=== PATIENT | male | born 1960 | race Caucasian/White ===

== ENCOUNTER → 2018-02-11 06:40 | Outpatient (CLI) | payer BC, SELFPAY ==
[2018-02-11 08:25] LABS: PSA,Total - Annual Screen 6.06 ng/mL (0.00-4.00)
== END ==
PROVIDERS: Family Provider Nurse Practitioner Family; PCP Nurse Practitioner Family; Visit Provider Nurse Practitioner Adult Health
DX: Z12.5 Encounter for screening for malignant neoplasm of prostate (principal)
CPT/HCPCS: 36415; 84153; G0103

== ENCOUNTER → 2018-05-27 07:10 | Outpatient (CLI) | payer BC, SELFPAY ==
--- NOTE | 2018-05-27 07:18 | EKG12_ITS ---
Test Reason : PRE-OP Blood Pressure : / mmHG Vent. Rate : 053 BPM Atrial Rate : 053 BPM P-R Int : 150 ms QRS Dur : 082 ms QT Int : 416 ms P-R-T Axes : 036 040 035 degrees QTc Int : 390 ms Sinus bradycardia Otherwise normal ECG Confirmed by JENNIFER HOOKER, MAINE ([id number]), editorial writer SHANA ELAINE ([id number]) on 05/28/2018 9:34:13 AM Referred By: Roger Evans Confirmed By:MAINE RODRIGUEZ MD
[2018-05-27 07:32] LABS: Absolute Lymphocyte Count 1.45 X10^3/ul (0.83-4.51); Absolute Neutrophil Count 3.7 X10^3/uL (2.0-7.7); Basophil# 0.03 X10^3/uL; Basophil% 0.5 % (0-1); Eosinophil# 0.13 X10^3/uL; Eosinophils% 2.1 % (0-5); Hematocrit 45.8 % (40-54); Hemoglobin 15.9 g/dl (13.0-16.5); Lymphocyte # 1.45 X10^3/ul (4.0); Lymphocyte % 23.8 % (19-41); Mean Corp Hgb Conc 34.7 g/gl (32-36); Mean Corpuscular Hgb 32.1 pg (27.0-32.0); Mean Corpuscular Volume 92.5 fL (80-94); Mean Platelet Vol. 8.8 fl (6.2-12.0); Monocyte# 0.81 X10^3/uL; Monocyte% 13.3 % (0-10); Neutrophil # 3.66 X10^3/uL (2.7-7.7); Platelet Count 253 K/mm3 (150-450); RBC Distribution Width CV 12.5 % (11.6-14.6); RBC Distribution Width SD 41.9 fl (35.1-43.9); Red Blood Count 4.95 M/mm3 (4.6-6.2); White Blood Count 6.1 K/mm3 (4.4-11.0)
[2018-05-27 07:34] LABS: POSITIVE COUNT NO; POSITIVE DIFFERENTIAL NO; POSITIVE MORPHOLOGY NO
== END ==
PROVIDERS: Family Provider Nurse Practitioner Family; PCP Nurse Practitioner Family; Visit Provider Physician Assistant
DX: Z01.818 Encounter for other preprocedural examination (principal); Z01.810 Encounter for preprocedural cardiovascular examination
CPT/HCPCS: 36415; 85025; 93005

== ENCOUNTER → 2018-06-16 09:10 | Outpatient (CLI) | payer BC, SELFPAY ==
[2018-06-16 09:41] LABS: Hematocrit 48.4 % (40-54); Hemoglobin 17.2 g/dl (13.0-16.5); Mean Corp Hgb Conc 35.5 g/gl (32-36); Mean Corpuscular Hgb 31.8 pg (27.0-32.0); Mean Corpuscular Volume 89.5 fL (80-94); Mean Platelet Vol. 8.8 fl (6.2-12.0); Platelet Count 339 K/mm3 (150-450); RBC Distribution Width CV 12.4 % (11.6-14.6); RBC Distribution Width SD 40.5 fl (35.1-43.9); Red Blood Count 5.41 M/mm3 (4.6-6.2); White Blood Count 7.4 K/mm3 (4.4-11.0)
[2018-06-16 09:46] LABS: Scan Indicated on CBC? Y/N NO
[2018-06-16 10:34] LABS: Anion Gap 8 (5-15); BUN 22 mg/dL (7-18); BUN/Creat Ratio 15.9 RATIO (10-20); Calcium,Total 9.3 mg/dL (8.5-10.1); Chloride 107 mmol/L (98-107); Creatinine, Serum 1.38 mg/dL (0.70-1.30); EST Glomerular Filtration Rate 56 mL/min (>60); Est Glom Filt Rate - Afr Amer 68 mL/min (>60); Glucose 109 mg/dL (74-106); Potassium 4.6 mmol/L (3.5-5.1); Sodium Level 140 mmol/L (136-145)
== END ==
PROVIDERS: Family Provider Nurse Practitioner Family; PCP Nurse Practitioner Family; Visit Provider Physician Assistant
DX: M75.41 Impingement syndrome of right shoulder (principal); M19.011 Primary osteoarthritis, right shoulder
CPT/HCPCS: 36415; 80048; 85027

== ENCOUNTER 2019-01-14 08:09 | Emergency (ER) | payer BC, SELFPAY ==
[2019-01-14 08:10] VITALS: BP 169/112; PULSE 70; RESP 18; TEMP 36.6; O2SAT 96; BMI 30.5
--- NOTE | 2019-01-14 08:21 | ED.VIS.GEN ---
History of Present Illness Chief Complaint: Complaint Detail of Chief Complaint: Minimal urine output Informant: Patient Onset: Yesterday Context: Sudden Onset Timing: Continuous Quality: Patient states he is dribbling. Location: Current Severity: Moderate Maximum Severity: Moderate Worsened by: Reports suprapubic pressure sensation Relieved by: Nothing Associated Symptoms: No constitutional symptoms Narrative: Patient is a middle-aged male who presents with urinary difficulty for the past 24-48 hours. States he is dribbling urine . He denies dysuria or hematuria. Does report urgency. He denies back or flank pain. He has a history of enlarged prostate. He has been seen by Dr. Harsha Zuniga in the past. He denies fever, chills or night sweats. He has no other complaints. Prior similar symptoms: Yes Recent Illness/Hospitalization: No - Past Medical History (1) Hypertension Status: Chronic (2) Benign prostatic hyperplasia with urinary obstruction Status: Acute (3) Hypercholesterolemia Status: Chronic Past Medical History - Allergies and Home Meds Allergies/Adverse Reactions: Allergies rosuvastatin [From Crestor] Allergy (Verified 01/14/19 08:12) Itching Primary Care Physician: Morales Graham NP-C [Primary Care Provider] - Prior records reviewed: Yes Surgical History: TURP Lives: Spouse/ Significant Other Smoking Status: Never smoker Alcohol: None Review of Systems General: Denies: Chills, Fever, Sweats ENT: Denies: Rhinorrhea, Sore throat Cardiovascular: Denies: Chest pain, Palpitations Respiratory: Denies: Dyspnea, Cough, Dyspnea on exertion Gastrointestinal: Reports: Abdominal pain - Pressure sensation suprapubic region with no other associated symptoms.. Denies: Nausea, Vomiting, Diarrhea, Constipation, Hematochezia Genitourinary: Reports: Frequency Musculoskeletal: Denies: Back pain, Extremity Pain Skin: Denies: Rash, Wounds Neurological: Denies: Headache, Weakness, Numbness Hematologic: Denies: Easy bruising, Easy bleeding Physical Exam Vital Signs/Narrative: Vital Signs Temp Pulse Resp BP Pulse Ox 01/14/19 08:10 98 F 70 18 169/112 H 96 Inital Vital Signs reviewed: Yes General: Well nourished, Well developed, Acute Distress Head: Normocephalic, Atraumatic Eyes: Perrl, EOMI ENT: Moist mucous membranes, No rhinorrhea Neck: Supple, Nontender Cardiovascular: Regular rate, Regular rhythm, No murmurs, Normal S1, Normal S2 Respiratory: No distress, CTA bilaterally, Chest nontender Abdomen: Soft, Normal bowel sounds, Tender, Hypoactive bowel sounds, Mass - Bladder and large per percussion. Negative for: No masses, Hepatomegaly, Splenomegaly, Pulsatile mass, Ventral hernia, Umbilical hernia Back: Nontender Extremities: Nontender Skin: Normal color, No rash Neurological: Alert, Oriented x3, Cranial nerves II-XII grossly intact, Normal Strength, Normal Sensation, Normal Gait Psychological: Normal affect, Normal Mood Diagnostic/Tx/Re-eval Laboratory Results 01/14/19 08:34 Sodium 138 Potassium 3.9 Chloride 108 H Carbon Dioxide 25.0 Anion Gap 5 BUN 19 H Creatinine 1.08 Estim Creat Clear Calc 80.83 Est GFR (MDRD) Af Amer 90 Est GFR (MDRD) Non-Af 74 BUN/Creatinine Ratio 17.6 Glucose 127 H Calcium 8.8 - Medical Decision Making Bladder scan was ordered. I was informed by nurse that the bladder scan is no longer functional. Munoz was ordered because clinically he is in acute urinary retention. Because symptoms of lasted 2 days or longer basic metabolic panel was obtained to assess renal function. Since patient has an established relationship with urologist will refer to group. He was discharged with a leg bag. There is no evidence of renal dysfunction. ED Disposition - Plan for ED Patient: Disposition: Home or Assisted Living Diagnosis: BPH loc w urin obs/LUTS, Hypercholesterolemia, Hypertension Instructions: ED Retention Urinary Male Referrals: Morales Graham NP-Hazel [Primary Care Provider] - Ankur Florence MD [STAFF PHYSICIAN] - 3-5 Days
[2019-01-14 09:00] LABS: Anion Gap 5 (5-15); BUN 19 mg/dL (7-18); BUN/Creat Ratio 17.6 RATIO (10-20); Calcium,Total 8.8 mg/dL (8.5-10.1); Chloride 108 mmol/L (98-107); Creatinine, Serum 1.08 mg/dL (0.70-1.30); EST Glomerular Filtration Rate 74 mL/min (>60); Est Glom Filt Rate - Afr Amer 90 mL/min (>60); Estimated Creatinine Clearance 80.83 ml/min; Glucose 127 mg/dL (74-106); Potassium 3.9 mmol/L (3.5-5.1); Sodium Level 138 mmol/L (136-145)
== END 2019-01-14 09:21 | disposition home or self-care (01) ==
PROVIDERS: Emergency Provider Emergency Medicine; Family Provider Nurse Practitioner Family; PCP Nurse Practitioner Family
DX: N40.1 Benign prostatic hyperplasia with lower urinary tract symptoms (principal); N13.8 Other obstructive and reflux uropathy; E78.00 Pure hypercholesterolemia, unspecified; I10 Essential (primary) hypertension
CPT/HCPCS: 51702; 80048; 99283

== ENCOUNTER → 2019-02-23 06:29 | Outpatient (CLI) | payer BC, SELFPAY | PROVIDERS: Family Provider Nurse Practitioner Family; PCP Nurse Practitioner Family; Referring Provider Nurse Practitioner Adult Health; Visit Provider Nurse Practitioner Adult Health | DX: R97.20 Elevated prostate specific antigen [PSA] (principal) | CPT/HCPCS: 36415; 84153; G0103 ==

== ENCOUNTER → 2019-06-08 06:10 | Outpatient (CLI) | payer BC, SELFPAY | PROVIDERS: Family Provider Nurse Practitioner Family; PCP Nurse Practitioner Family; Referring Provider Urology; Visit Provider Urology | DX: R97.20 Elevated prostate specific antigen [PSA] (principal) | CPT/HCPCS: 36415; 84153 ==

== ENCOUNTER → 2019-07-02 08:40 | Outpatient (CLI) | payer BC, SELFPAY ==
--- NOTE | 2019-07-01 | IMM_PTH ---
PATIENT: JOSE GUADALUPE NGUYEN LOC: [facility] U#:[id number] AGE/SX: 64/M ROOM: RE07/02/[address]: Dr. Ankur Florence MD : 1960 BED: DIS: SPEC #: [id number] RECD: 07/05/19 12:15 STATUS: NATALIE REVA #: [id number] JASON: 07/01/19 00:[address]: Ankur Florence DEPT: IMMUNOHISTOCHEMISTRY RECD BY: Lauren Spencer ENTERED: 07/05/19 12:16 SP TYPE: IMMUNO OTHR DR: Morales Graham, RIB CLOTH KNITTER-C Tissues: F - PROSTATE LEFT Procedures: P40 (add) 34BE12 (initial) PHYSICIAN & INSTITUTION [place] [id number] SPECIMEN INFORMATION: Tissue Source: F - Left prostate, base, core biopsy Clinical Info: Elevated PSA Specimen Number: [id number] CPT code: 25997, 50452 METHODOLOGY: Deparaffinized sections of prefer/formalin-fixed tissue or PAP/DQ stained slides are incubated with monoclonal/polyclonal antibodies/oligonucleotide probes. Localization is made via biotin free immunoperoxidase method. Appropriate controls are performed and reacted as expected. Results on target cell population are indicated in the following table: RESULTS: ANTIBODY / CLONE RESULT Block F P40 (BC28) negative 34BE12 (34BE12) negative These tests were developed and their performance characteristics determined by [facility]. They may not have been cleared or approved by the U.S. Food and Drug Administration. The FDA has determined that such clearance or approval is not necessary. INTERPRETATION: F. Left prostate, base, core biopsy: Adenocarcinoma. AM:nu 07/06/19
--- NOTE | 2019-07-01 08:00 | PROSBIL_PTH ---
PATIENT: JOSE GUADALUPE NGUYEN LOC: [facility] U#:[id number] AGE/SX: 64/M ROOM: RE07/02/[address]: Dr. Ankur Florence MD : 1960 BED: DIS: SPEC #: [id number] RECD: 07/01/19 17:18 STATUS: NATALIE REVA #: [id number] JASON: 07/01/19 08:[address]: Ankur Florence DEPT: SURGICAL PATHOLOGY RECD BY: Jonathan Mark ENTERED: 07/02/19 09:11 SP TYPE: PROST BX BARBY DR: Morales Graham, ZENAIDA-C Tissues: A - PROSTATE RIGHT B - PROSTATE RIGHT C - PROSTATE RIGHT D - PROSTATE LEFT E - PROSTATE LEFT F - PROSTATE LEFT Procedures: PROSTATE BX HEADER OPERATION: Prostate biopsy PRE-OP DIAGNOSIS: Elevated PSA TISSUE SUBMITTED: A - Right apex, B - Right mid, C - Right base, D - Left apex, E - Left mid, F - Left base MICROSCOPIC DIAGNOSIS A. Right prostate, apex, core biopsy: Mild chronic inflammation, focal acute inflammation and glandular atrophy. B. Right prostate, mid, core biopsy: Mild chronic inflammation and glandular atrophy. C. Right prostate, base, core biopsy: Mild chronic inflammation and glandular atrophy. D. Left prostate, apex, core biopsy: Mild chronic inflammation, focal acute inflammation and glandular atrophy. E. Left prostate, mid, core biopsy: Mild chronic inflammation, focal acute inflammation and glandular atrophy. F. Left prostate, base, core biopsy: Adenocarcinoma: Gallitzin grade: 7 (3+4) Cores involved: 1 out of 2 cores Tissue involved: 5% Maximal tumor length: 2 mm AM:nu 07/05/19 COMMENT F. Immunohistochemistry ([id number]) supports the above diagnosis. MICROSCOPIC DESCRIPTION Slides are reviewed. GROSS DESCRIPTION A - Received is one container designated prostate, right apex. The specimen consists of two elongated fragments of light altamirano-white soft tissue measuring 0.9 and 2 cm in length and 0.1 cm in diameter. The specimen is totally submitted in one cassette. B - Received is one container designated prostate, right mid. The specimen consists of two elongated fragments of light altamirano-white soft tissue measuring 1.2 and 2 cm in length and 0.1 cm in diameter. The specimen is totally submitted in one cassette. C - Received is one container designated prostate, right base. The specimen consists of two elongated fragments of light altamirano-white soft tissue measuring 1.8 and 2 cm in length and 0.1 cm in diameter. The specimen is totally submitted in one cassette. D - Received is one container designated prostate, left apex. The specimen consists of two elongated fragments of light altamirano-white soft tissue measuring 0.8 and 1.2 cm in length and 0.1 cm in diameter. The specimen is totally submitted in one cassette. E - Received is one container designated prostate, left mid. The specimen consists of two elongated fragments of light altamirano-white soft tissue measuring 1.5 and 2 cm in length and 0.1 cm in diameter. The specimen is totally submitted in one cassette. F - Received is one container designated prostate, left base. The specimen consists of two elongated fragments of light altamirano-white soft tissue each measuring 1 cm in length and 0.1 cm in diameter. The specimen is totally submitted in one cassette. / SJ:rg 07/02/19 TC:0 CPT: 55679 x6 ADDENDUM ADDENDUM ADDENDUM ADDENDUM ADDENDUM ADDENDUM ADDENDUM ADDENDUM 09/03/2019 09:39 ADDENDUM 09/03/2019 09:39 ADDENDUM 09/03/2019 09:39 ADDENDUM 09/03/2019 09:39 ADDENDUM 09/03/2019 09:39 An order for Oncotype testing was received from Dr. Florence. This necessitated case review, block and slide selection by pathologist at [facility]. Genomic Prostate Score = 63 Results of the complete Oncotype testing (Get Smart Content report) are viewable in EMR under: Reports - Pathology - Lab Pathology Report, Scanned.
== END ==
PROVIDERS: Family Provider Nurse Practitioner Family; PCP Nurse Practitioner Family; Referring Provider Urology; Visit Provider Urology
DX: R97.20 Elevated prostate specific antigen [PSA] (principal)
CPT/HCPCS: 88305; 88341; 88342; G0416

== ENCOUNTER → 2019-07-19 09:47 | Outpatient (CLI) | payer BC, SELFPAY ==
--- NOTE | 2019-07-19 09:52 | NM_ITS ---
CLINICAL: 58-year-old male with reported history of primary prostate carcinoma. WHOLE BODY 99m Tc MDP RADIONUCLIDE BONE SCINTIGRAPHY COMPARISON: None available FINDINGS: Following the intravenous administration of 27.6 mCi of 99m Tc MDP, whole body bone images reveal: 1. Increased radiopharmaceutical concentration is identified in the left posterior ninth rib. 2. Enhanced tracer concentration is identified in the acromioclavicular and sternoclavicular compartments of both shoulders, mid cervical spine posteriorly on the left, ninth thoracic vertebra posteriorly on the right, fifth lumbar vertebra posteriorly on the left and right, left posterior sacrum, bilateral knees, the right-left ankle articulations posteriorly, left midfoot and right forefoot. 3. The remaining skeletal structures are scintigraphically unremarkable with normal-appearing renal images and urinary bladder activity identified. There is an increase in tracer distribution noted in the inter-orbital aspect of the calvarium and bilateral mandible most consistent with periostitis. NM/Bone Scan Whole Body IMPRESSION: 1. The increase in radiopharmaceutical concentration identified in the left posterior ninth rib is most consistent with trauma-fracture. Plain film radiography correlation with the benefit for further evaluation. 2. Degenerative arthritis appears expressed in the cervical, thoracic and lumbar spine, sacrum, bilateral shoulders, both knee articulations, right and left ankles, the left midfoot and right forefoot. 3. There is no definitive typical scintigraphic evidence of diffuse axial skeletal metastatic disease on the current examination. Electronically Signed: Morales Cunningham DO at 23:04 EDT Tel , Service support ,
== END ==
PROVIDERS: Family Provider Nurse Practitioner Family; PCP Nurse Practitioner Family; Referring Provider Urology; Visit Provider Urology
DX: C61 Malignant neoplasm of prostate (principal)
CPT/HCPCS: 78306

== ENCOUNTER → 2019-07-22 15:44 | Outpatient (CLI) | payer BC, SELFPAY ==
--- NOTE | 2019-07-22 15:53 | CT_ITS ---
STUDY: CT ABDOMEN AND PELVIS WITH CONTRAST REASON FOR EXAM: Male, 58 years old. Prostate cancer RADIATION DOSAGE (If Supplied By Facility): DLP = ( 1277.37 ) mGycm TECHNIQUE: Transaxial images were obtained from the dome of the diaphragm to the symphysis pubis with oral contrast. 100ML ml of Readi-CAT and amp; 50mL Isovue-370 contrast was administered. Sagittal and coronal images were reconstructed. Individualized dose optimization techniques were used for this CT. COMPARISON: None. FINDINGS: The visualized lung bases are clear. The visualized portions of the heart and pericardium are within normal limits. There are no calcified gallstones present. There is decreased hepatic attenuation. There are no suspicious hepatic lesions. The spleen is normal in size. The pancreas is within normal limits. The adrenal glands are within normal limits. There are no obstructing renal stones. There is no hydronephrosis. There are no focal renal lesions. The prostate measures 6.7 cm in transverse dimension. Normal visualized stomach. There is no bowel obstruction or inflammation. The appendix is normal. The aorta is normal in caliber. There is no abdominal or pelvic free air, free fluid, fluid collection or lymphadenopathy. There are no destructive osseous lesions. CT/Abdomen/Pelvis WITH Contrast IMPRESSION: No acute abdominal or pelvic pathology. Fatty liver. No evidence of metastatic disease. Enlarged prostate. Electronically Signed: George Martin, at 16:29 EDT Tel , Service support ,
== END ==
PROVIDERS: Family Provider Nurse Practitioner Family; PCP Nurse Practitioner Family; Referring Provider Urology; Visit Provider Urology
DX: C61 Malignant neoplasm of prostate (principal); K76.0 Fatty (change of) liver, not elsewhere classified; N40.0 Benign prostatic hyperplasia without lower urinary tract symptoms
CPT/HCPCS: 74177; Q9967

== ENCOUNTER → 2019-08-09 06:13 | Outpatient (CLI) | payer BC, SELFPAY ==
--- NOTE | 2019-08-09 06:32 | MRI_ITS ---
STUDY: MR PELVIS WITH T WITHOUT CONTRAST REASON FOR EXAM: Male, 58 years old. Prostate cancer. Positive biopsy June 2019. TECHNIQUE: Standardized fat and water weighted pulse sequences were obtained in all 3 orthogonal planes, pre-and post contrast administration. IV Dotarem 20 was administered for the contrast portion of the examination. COMPARISON: None. FINDINGS: The prostate measures 6.4 x 5.7 x 6.3 cm with a volume of 113.9 mL. The peripheral zone demonstrates no abnormality on diffusion-weighted, ADC or T2 weighted imaging. The transitional zone is markedly heterogenous on T2-weighted imaging. In the lower aspect of the right gland there is an area of irregular low signal on T2-weighted imaging with focal areas of higher signal centrally. This corresponds with an area of increased signal on ADC mapping but low signal on diffusion-weighted imaging. This is suspicious for malignancy. This area measures approximately 2 x 1.5 cm in AP and transverse dimension. The remainder of the transitional zone demonstrates characteristics consistent with BPH. Normal seminal vesicles. The urinary bladder demonstrates a trabeculated mildly thickened wall. There is no evidence of filling defect. The prostate does invaginate into the bladder floor. There is no pelvic fluid. There is no pelvic mass lesion or lymphadenopathy. Normal visualized pelvic arteries. Normal osseous structures. Normal abdominal wall. MRI/Pelvis W/WO Contrast IMPRESSION: 1. Enlarged prostate with findings consistent with a PI-RADS 5 category lesion in the lower right transitional zone suggesting a high clinical suspicion for malignancy. The remainder of the transitional zone demonstrates characteristics consistent with BPH. 2. Normal peripheral zone. 3. Mild trabeculation of the urinary bladder. Electronically Signed: Seferino Flores DO at 11:07 EDT Tel [phone], Service support ,
== END ==
PROVIDERS: Family Provider Nurse Practitioner Family; PCP Nurse Practitioner Family; Referring Provider Urology; Visit Provider Urology
DX: C61 Malignant neoplasm of prostate (principal)
CPT/HCPCS: 72197; A9575

== ENCOUNTER 2019-10-13 05:39 | Day surgery (SDC) | payer BC, SELFPAY ==
[2019-10-05 09:11] VITALS: BP 112/80; PULSE 58; RESP 16; TEMP 36.1; O2SAT 98; BMI 30.8
--- NOTE | 2019-10-05 09:16 | SDCEKG_ITS ---
Test Reason : Blood Pressure : / mmHG Vent. Rate : 058 BPM Atrial Rate : 058 BPM P-R Int : 180 ms QRS Dur : 072 ms QT Int : 410 ms P-R-T Axes : 056 016 019 degrees QTc Int : 402 ms Sinus bradycardia Otherwise normal ECG Confirmed by JENNIFER HOOKER, MAINE ([id number]), copy editor EKITH ZAVALA ([id number]) on 10/11/2019 11:53:05 AM Referred By: Ankur Florence Confirmed By:MAINE RODRIGUEZ MD
[2019-10-05 09:47] LABS: Hematocrit 49.6 % (40-54); Hemoglobin 16.9 g/dL (13.0-16.5); Mean Corp Hgb Conc 34.1 g/dL (32-36); Mean Corpuscular Hgb 31.4 pg (27.0-32.0); Mean Platelet Vol. 8.6 fl (6.2-12.0); Platelet Count 277 K/mm3 (150-450); RBC Distribution Width CV 11.8 % (11.6-14.6); RBC Distribution Width SD 39.3 fl (35.1-43.9); Red Blood Count 5.39 M/mm3 (4.6-6.2); White Blood Count 6.7 K/mm3 (4.4-11.0)
[2019-10-05 10:04] LABS: ALB/GLOB Ratio 1.4 RATIO (0.9-2.4); AST(SGOT) 36 U/L (15-37); Alanine Aminotransfer ALT/SGPT 61 U/L (16-61); Albumin, Serum 4.7 g/dL (3.2-5.0); Alkaline Phosphatase 58 U/L (45-117); Anion Gap 4 (5-15); BUN 16 mg/dL (7-18); BUN/Creat Ratio 13.7 RATIO (10-20); Calcium,Total 9.4 mg/dL (8.5-10.1); Chloride 107 mmol/L (98-107); Creatinine, Serum 1.17 mg/dL (0.70-1.30); EST Glomerular Filtration Rate 68 mL/min (>60); Est Glom Filt Rate - Afr Amer 82 mL/min (>60); Estimated Creatinine Clearance 74.62 ml/min; Globulin 3.3 g/dL (2.2-4.2); Glucose 118 mg/dL (74-106); Potassium 4.2 mmol/L (3.5-5.1); Sodium Level 139 mmol/L (136-145)
[2019-10-13] VITALS (12 sets, daily range): BP systolic 101–133; BP diastolic 57–97; PULSE 60–79; RESP 16–18; TEMP 36.3–37.1; O2SAT 94–116; BMI 30.4
[2019-10-13] MEDS: Lactated Ringers 1,000 ML 100 ML IV ×4 (06:53→10:15)
--- NOTE | 2019-10-13 07:30 | PROST_PTH ---
PATIENT: JOSE GUADALUPE NGUYEN LOC: [facility] [place] U[place][id number] AGE/SX: 58/M ROOM: RE10/13/[address]: Dr. Ankur Florence MD : 1960 BED: DIS: 10/14/2019 SPEC #: [id number] RECD: 10/13/19 11:26 STATUS: NATALIE REVA #: [id number] JASON: 10/13/19 07:[address]: Ankur Florence DEPT: SURGICAL PATHOLOGY RECD BY: Jessica Franco ENTERED: 10/13/19 12:13 SP TYPE: PROSTATE OTHR DR: Morales Graham, WIRER MAINTENANCE-C Tissues: A - Prostate, NOS B - Prostate, NOS C - Prostate, NOS Procedures: Surgery Specimen Level IV Surgery Specimen Level HEADER OPERATION: LAP robotic prostatectomy, radical PRE-OP DIAGNOSIS: Malignant neoplasm of prostate TISSUE SUBMITTED: A. Left posterior margin prostate, B. Apical process of prostate, C. Prostate MICROSCOPIC DIAGNOSIS A. Left posterior margin prostate: Prostatic adenocarcinoma. B. Apical portion of prostate: Prostatic tissue, negative for carcinoma. C. Prostate, radical prostatectomy: Negative for carcinoma. See cancer summary below. SJ:nu 10/18/19 PROSTATE CANCER (RADICAL) SUMMARY: (Including specimen A, B & C) Procedure: Radical Prostatectomy Prostate Size: Weight: 128 gm Size: 7 cm transversely, 5.5 cm craniocaudally and 5 cm anterior-posteriorly Histologic type: Adenocarcinoma Histologic grade: G2 (Atkinson score 3+4=7) Percent of Pattern 4 in Kenneth score 7: <10% Tumor Quantitation: Percentage of prostate involved by tumor: <1% Tumor size: 0.4 x 0.3 cm (measured microscopically) The tumor is noted only in specimen A, left posterior margin prostatae. Extraprostatic Extension: Present, focal Urinary Bladder Neck Invasion: Not applicable Seminal Vesicle Invasion: Not present Lymphovascular Invasion: Not present Perineural Invasion: Present, focal Margins: Margin involved by invasive carcinoma. The tumor is present in left posterior margin prostate (specimen A) Treatment Effect: No known presurgical therapy. Regional Lymph Nodes: No lymph nodes submitted or found. Distant metastasis: Not applicable Additional Pathologic Findings: Benign nodular prostatic hyperplasia. - Chronic inflammation and focal mild acute inflammation. Ancillary Studies: Not performed PATHOLOGIC STAGE: pT3a Pnx Mx The above summary is in compliance with [employer] (CAP) Cancer Protocols Checklist and [place] Joint Committee on Cancer (AJCC), Staging Manual, 8th Ed. COMMENT Please make reference to previous specimen ([id number]) left prostate, base, core biopsy with diagnosis of adenocarcinoma. This case is discussed with Dr. Florence on 10/18/19 MICROSCOPIC DESCRIPTION Slides are reviewed. GROSS DESCRIPTION A - Received in fixative is one container labeled with the patient's name and designated left posterior margin prostate. The specimen consists of two pieces of altamirano-pink soft tissue that in aggregate measure 1.5 x 1.2 x 0.3 cm. The entire specimen is submitted in one cassette. / SJ:rg 10/13/19 B - Received in fixative is one container labeled with the patient's name and designated apical process of prostate. The specimen consists of one irregular fragment of altamirano soft tissue that measures 0.5 x 0.5 x 0.3 cm. The entire specimen is submitted in one cassette. / :rg 10/13/19 C - Received in fixative is one container labeled with the patient's name and designated prostate. The specimen consists of a radical prostatectomy specimen markedly enlarged consisting of prostate and seminal vesicles. The specimen weighs 128 gm and measures 7 cm transversely, 5.5 cm craniocaudally and 5 cm anterior-posteriorly. The right seminal vesicle is partly disrupted and measures 4 x 1 x 1 cm and right vas deferens measures 4 cm in length and 0.6 cm in diameter. The left seminal vesicle measures 3.5 x 1.5 x 1 cm and left vas deferens measures 3 cm in length and 0.5 cm in diameter. The prostate is inked as follows: anterior surface - yellow, posterior surface - black, right lateral surface - blue, left lateral surface - green. The bilateral seminal vesicles and vas deferens are inked as follows: posterior surface right and left seminal vesicle - black, anterior surface right seminal vesicle and vas deferens - blue, anterior surface left seminal vesicle and vas deferens - green. Sections do not reveal any obvious mass lesion. Celery Stripper sections are submitted in 20 cassettes as follows: 1 - bilateral seminal vesicle and vas deferens, 2 - apical (urethral) margin, 3 & 4 - proximal margin (bladder base margin and most basal portion prostate), enface, 5-8 - apical portion prostate, 9-12 middle portion prostate, 13-20 - basal portion prostate. / SJ: 10/14/19 More sections are submitted as follows: 21-30 - left lobe basal portion prostate, 31-40 - apical and mid portion prostate (31-39 contains the left lobe and 40 contains the right lobe). / SJ: 10/15/19 TC:0 CPT: 34793 x2, 95431
[2019-10-13] MEDS: Cefazolin 2 GM in 0.9% Normal Saline 100 ML IV (07:32)
--- NOTE | 2019-10-13 07:46 | PCM.DC.URO ---
Discharge Diet: Light diet - advance as tolerated, Soft diet Discharge Activity: May Not Drive, May not drive while taking narcotic pain medications. Return to work on:: 11/24/19 Call your doctor if your incision/area has: Continuous Slow Oozing, Sudden Increased Bleeding, Increased Pain/ Swelling, Increased Redness, Foul Smelling Discharge, Swelling at the incision site Call your doctor if you observe: Fever of 101 or Higher Suture Line Care: Avoid Pulling/Pushing, Avoid Pinching/Bending Catheter: Munoz to leg bag, Munoz to large bag Drain: [place] Instructions: Radical Prostatectomy Allergies/Adverse Reactions: Allergies niacin [From Niaspan Extended-Release] Allergy (Verified 10/13/19 06:23) Rash rosuvastatin [From Crestor] Allergy (Verified 10/13/19 06:23) Itching sulfamethoxazole [From Bactrim] Allergy (Verified 10/13/19 06:23) Rash trimethoprim [From Bactrim] Allergy (Verified 10/13/19 06:23) Rash Medications to take at Discharge Atenolol [Tenormin (beta Ethan)] 25 mg PO DAILY 10/05/19 Doxazosin Mesylate [Cardura] 4 mg PO QHS 10/05/19 Fenofibrate [Fenoglide] 134 mg PO DAILY 10/05/19 Mometasone Furoate [Elocon] 15 gm TP PRN PRN 10/05/19 Simvastatin [Zocor] 40 mg PO QHS 10/05/19 Ciprofloxacin [Cipro] 500 mg PO BID #14 tab 10/13/19 Docusate Sodium [Colace] 100 mg PO BID #20 cap 10/13/19 Hydrocodone/Acetaminophen [[place] 5-325 Tablet] 1 ea PO Q6H PRN PRN 5 Days #14 tab 10/13/19 The following prescriptions were given: Ciprofloxacin [Cipro] 500 mg PO BID #14 tab Transmission Status: Pending to [id number] Docusate Sodium [Colace] 100 mg PO BID #20 cap Transmission Status: Pending to [id number] Hydrocodone/Acetaminophen [[place] 5-325 Tablet] 1 ea PO Q6H PRN PRN 5 Days #14 tab PRN Reason: Pain Score 1-10/10 Transmission Status: Sent to [facility] Primary Care Physician: Morales Graham NP-C [Primary Care Provider] - Test Results: Test results from this visit will be discussed in further detail at your follow-up appointment, if applicable. Please Follow Up With: Ankur Florence MD When: in 2 weeks, please call to make an appointment. Proposed Discharge Date: 10/14/19
[2019-10-13] MEDS: Bupivacaine Mpf 0.5% 30 ML VIAL (11:00)
--- NOTE | 2019-10-13 11:19 | PCM.OPRPT ---
Report of Operation Date of Procedure: 10/13/19 Pre-Operative Diagnosis: Prostate cancer BPH with obstruction Post-Operative Diagnosis: The same Surgery/Procedure Performed:: Laparoscopic robotic assisted radical prostatectomy Description of Surgical Findings:: 58-year-old male with a very large prostate but 80 g also found to have prostate cancer he is elected to undergo radical prostatectomy because of the prostate cancer and the large prostate prior to surgery he developed urinary retention a Walker catheter was placed. He now presents today for a radical prostatectomy can do bilateral nerve sparing to try to spare the nerves for erections and also will do urethral sparing to help with incontinence and bladder control after the surgery. 58-year-old male taken back to the operating room at the smooth induction of general anesthesia he was placed supine on the table the abdomen shaved prepped and draped in usual sterile fashion we then made an incision above the umbilicus and placed a Veress needle into the peritoneal cavity filled the peritoneal cavity CO2 gas and then placed our camera trocar we then placed a right arm trocar to left arm trochars air seal port and a suction short port we then docked the robot and started our dissection I first freed up the colon off the lateral aspect of the pelvis this allowed the colon to be retracted out of the pelvis I then went below the bladder and incised the peritoneum over the vas deferens and seminal vesicles and dissected out the vas deferens and seminal vesicles I then dissected underneath the prostate towards the apex we then pulled out of the pelvis are dropped the bladder but the bladder on stretch with the fourth arm created the space of Retzius cleaned off the fat over the prostate I then incised the endopelvic fascia in the right and left side all the way to the apex of the prostate circumferentially dissected around the dorsal vein complex and then placed a stitch in the dorsal vein complex then came back between the junction of the prostate and the bladder dissected the bladder off the prostate is a very large prostate with very large bladder opening was created to the free the entire prostate off the bladder we made sure that the right and left ureteral orifices were identified and injured I then dissected posterior to the region seminal vesicles some vesicles were then pulled we then retracted prostate laterally and came to the pedicle with clips and then dissected neurovascular bundle off the right side as is dissecting the neurovascular bundles very sticky in some parts and had the dissected very carefully all the way to the apex prostate is very large made the dissection very difficult then went to the left side and came to the pedicle in the left side placed clips in the pedicle and then was able to free up the neurovascular bundle in the left side this came off even nicer but the few areas were scant sticky so we sent off a few edges as margins on the left posterior margin and also did an apical margin we then transected to the dorsal vein complex place and after stitch the dorsal vein complex and transected to the urethra prostate was then removed put Endo Catch bag I then reconstructed the bladder neck closing up in tennis racquet fashion so that there was a small opening on the top and then we did anastomosis between the bladder and the urethra with 3-0 Vicryl in a running fashion coming at the 6 o'clock position working very well to the 12 o'clock position after we completed the anastomosis catheter was placed we then extracted the prostate to the supraumbilical port we closed our air seal port with a 1012 Ed Terrell stitch robot was undocked and all the stitches and incisions were closed with subcuticular stitches and bandages were placed all counts were correct it was a nice nerve sparing procedure in the both the right and left side we did send off some margins as per minute just to make sure that there was no positive margins and the anastomosis was a nice anastomosis between the bladder neck that was reconstructed in the urethra patient tolerated procedure well and is currently being awakened from anesthesia. Type of Anesthesia:: General Drains: walker - Admit VTE Documentation VTE Present on Admission: No VTE Mechan Device Prophylaxis: SCD's
[2019-10-13] MEDS: Ketorolac 15 MG/ML Vial IV ×3 (12:32→23:40)
[2019-10-13 12:37] LABS: Hematocrit 43.4 % (40-54); Hemoglobin 14.7 g/dL (13.0-16.5); Mean Corp Hgb Conc 33.9 g/dL (32-36); Mean Corpuscular Hgb 31.1 pg (27.0-32.0); Mean Corpuscular Volume 91.9 fL (80-94); Mean Platelet Vol. 8.9 fl (6.2-12.0); Platelet Count 232 K/mm3 (150-450); RBC Distribution Width CV 11.9 % (11.6-14.6); Red Blood Count 4.72 M/mm3 (4.6-6.2); White Blood Count 15.2 K/mm3 (4.4-11.0)
[2019-10-13 13:19] LABS: Anion Gap 9 (5-15); BUN 17 mg/dL (7-18); BUN/Creat Ratio 14.4 RATIO (10-20); Calcium,Total 8.2 mg/dL (8.5-10.1); Chloride 108 mmol/L (98-107); Creatinine, Serum 1.18 mg/dL (0.70-1.30); EST Glomerular Filtration Rate 67 mL/min (>60); Est Glom Filt Rate - Afr Amer 81 mL/min (>60); Estimated Creatinine Clearance 73.98 ml/min; Glucose 157 mg/dL (74-106); Potassium 4.8 mmol/L (3.5-5.1); Sodium Level 140 mmol/L (136-145)
[2019-10-13] MEDS: 0.45% Normal Saline 1,000 ML 150 ML IV ×2 (14:02→20:23)
[2019-10-13] MEDS: Ciprofloxacin 500 MG Tablet PO ×2 (14:44→21:06)
[2019-10-13] MEDS: Pantoprazole Sodium 20 MG Tablet PO (14:44)
[2019-10-13] MEDS: Morphine 2 MG/ML Syringe IV ×2 (14:49→19:33)
[2019-10-13] MEDS: Acetaminophen 500 MG Tablet PO ×2 (17:28→23:40)
[2019-10-13] MEDS: Docusate Sodium 100 MG Capsule PO (21:06)
[2019-10-14] MEDS: 0.45% Normal Saline 1,000 ML 150 ML IV (03:13)
[2019-10-14 03:30] VITALS: BP 106/54; PULSE 65; RESP 18; TEMP 36.8; O2SAT 97
[2019-10-14 05:35] LABS: Hematocrit 36.2 % (40-54); Hemoglobin 12.2 g/dL (13.0-16.5); Mean Corp Hgb Conc 33.7 g/dL (32-36); Mean Corpuscular Hgb 30.9 pg (27.0-32.0); Mean Corpuscular Volume 91.6 fL (80-94); Mean Platelet Vol. 8.7 fl (6.2-12.0); Platelet Count 220 K/mm3 (150-450); RBC Distribution Width CV 11.9 % (11.6-14.6); RBC Distribution Width SD 39.9 fl (35.1-43.9); Red Blood Count 3.95 M/mm3 (4.6-6.2); White Blood Count 8.3 K/mm3 (4.4-11.0)
[2019-10-14 06:12] LABS: Anion Gap 4 (5-15); BUN 16 mg/dL (7-18); BUN/Creat Ratio 13.6 RATIO (10-20); Calcium,Total 7.4 mg/dL (8.5-10.1); Chloride 108 mmol/L (98-107); Creatinine, Serum 1.18 mg/dL (0.70-1.30); EST Glomerular Filtration Rate 67 mL/min (>60); Est Glom Filt Rate - Afr Amer 81 mL/min (>60); Estimated Creatinine Clearance 73.98 ml/min; Glucose 91 mg/dL (74-106); Potassium 3.6 mmol/L (3.5-5.1); Sodium Level 139 mmol/L (136-145)
[2019-10-14] MEDS: Ketorolac 15 MG/ML Vial IV ×2 (06:30→11:11)
[2019-10-14 07:53] VITALS: BP 102/60; PULSE 60; RESP 18; TEMP 36.6; O2SAT 98
[2019-10-14] MEDS: Pantoprazole Sodium 20 MG Tablet PO (07:57)
[2019-10-14] MEDS: Magnesium Hydroxide 30 ML UDC 15 ML PO (07:57)
[2019-10-14] MEDS: Ciprofloxacin 500 MG Tablet PO (07:57)
[2019-10-14] MEDS: Fenofibrate 145 MG Tablet PO (07:57)
[2019-10-14] MEDS: Docusate Sodium 100 MG Capsule PO (07:57)
[2019-10-14] MEDS: Atenolol 25 MG Tablet PO (07:57)
[2019-10-14] MEDS: 0.9% Saline Lock 10 ML Syringe IV (11:11)
[2019-10-14] MEDS: Acetaminophen 500 MG Tablet PO (11:11)
[2019-10-14 12:52] VITALS: BP 101/61; PULSE 71; RESP 18; TEMP 36.6; O2SAT 97
== END 2019-10-14 13:41 | disposition home or self-care (01) ==
LOC: SDC 05:39 → AC 05:40 → MS3 10-14 07:51
PROVIDERS: Family Provider Nurse Practitioner Family; PCP Nurse Practitioner Family; Referring Provider Urology; Visit Provider Urology
PROC: 0VT04ZZ Resection of Prostate, Percutaneous Endoscopic Approach (ICD-10-PCS; CPT 55866; principal; 2019-10-13 07:10)
DX: C61 Malignant neoplasm of prostate (principal); N13.8 Other obstructive and reflux uropathy; N40.1 Benign prostatic hyperplasia with lower urinary tract symptoms; N39.498 Other specified urinary incontinence; R33.8 Other retention of urine; I10 Essential (primary) hypertension; E78.5 Hyperlipidemia, unspecified; Z79.899 Other long term (current) drug therapy
CPT/HCPCS: 55866; 36415; 80048; 80053; 85027; 86850; 86900; 86901; 88305; 88309; 93005; 99251; J7120; A4216; G0463; J2405

== ENCOUNTER → 2019-11-16 08:44 | Outpatient (CLI) | payer BC, SELFPAY ==
[2019-10-13 06:26] VITALS: BMI 30.4
[2019-11-16 10:30] LABS: PSA,Total- Diagnostic 0.02 ng/mL (0.0-4.0)
== END ==
PROVIDERS: PCP Nurse Practitioner Family; Referring Provider Urology; Visit Provider Urology
DX: C61 Malignant neoplasm of prostate (principal); R97.20 Elevated prostate specific antigen [PSA]
CPT/HCPCS: 36415; 84153

== ENCOUNTER → 2020-03-13 14:08 | Outpatient (CLI) | payer BC, SELFPAY ==
[2019-10-13 06:26] VITALS: BMI 30.4
[2020-03-13 15:46] LABS: PSA,Total- Diagnostic < 0.01 ng/mL (0.0-4.0)
== END ==
PROVIDERS: PCP Nurse Practitioner Family; Referring Provider Urology; Visit Provider Urology
DX: C61 Malignant neoplasm of prostate (principal)
CPT/HCPCS: 36415; 84153

== ENCOUNTER → 2020-11-20 06:31 | Outpatient (CLI) | payer OTHER, SELFPAY ==
[2019-10-13 06:26] VITALS: BMI 30.4
[2020-11-20 08:20] LABS: PSA,Total- Diagnostic 0.02 ng/mL (0.0-4.0)
== END ==
PROVIDERS: PCP Nurse Practitioner Family; Referring Provider Urology; Visit Provider Urology
DX: C61 Malignant neoplasm of prostate (principal)
CPT/HCPCS: 36415; 84153

== ENCOUNTER → 2021-05-24 06:03 | Outpatient (CLI) | payer OTHER, SELFPAY ==
[2019-10-13 06:26] VITALS: BMI 30.4
[2021-05-24 08:00] LABS: PSA,Total- Diagnostic 0.03 ng/mL (0.0-4.0)
== END ==
PROVIDERS: PCP Nurse Practitioner Family; Referring Provider Urology; Visit Provider Urology
DX: C61 Malignant neoplasm of prostate (principal)
CPT/HCPCS: 36415; 84153

== ENCOUNTER 2021-11-21 06:19 | Outpatient (CLI) | payer OTHER, SELFPAY ==
[2021-11-21 08:45] LABS: PSA,Total- Diagnostic 0.05 ng/mL (0.0-4.0)
== END 2021-11-21 23:59 | disposition short-term general hospital (02) ==
LOC: LAB 06:21
PROVIDERS: PCP Nurse Practitioner Family; Referring Provider Urology; Visit Provider Urology
DX: C61 Malignant neoplasm of prostate (principal)
CPT/HCPCS: 36415; 84153

== ENCOUNTER 2022-02-08 07:09 | Outpatient (CLI) | payer OTHER, SELFPAY ==
--- NOTE | 2022-02-08 07:14 | CT_ITS ---
STUDY: CT CHEST WITHOUT CONTRAST REASON FOR EXAM: Male, 61 years old. SPRAIN OF B/L STERNOCLAVICULAR JOINT RADIATION DOSAGE (If Supplied By Facility): CTDIvol = ( 16.24 ) mGy, DLP = ( 645.42 ) mGycm TECHNIQUE: Transaxial imaging was performed without intravenous contrast administration.. Multiplanar coronal and sagittal images were reformatted. Individualized dose optimization techniques were used for this CT. COMPARISON: None. FINDINGS: The lungs are normal. There is no demonstrated pleural abnormality. Normal heart and pericardium. Coronary artery calcification There are multiple small lymph nodes within the mediastinum, which are normal in size and morphology most compatible with reactive lymph hyperplasia. Normal hilar regions. Normal enhanced and unenhanced pulmonary arteries. There is atherosclerotic calcification of the aortic arch. There are degenerative changes of the thoracic spine. Degenerative changes of the left sternoclavicular joint. Diffuse fatty infiltration of the liver. CT/Chest without Contrast IMPRESSION: Degenerative changes of the left sternoclavicular joint. Electronically Signed: Douglas Baer MD at 8:57 EDT ,
== END 2022-02-08 23:59 | disposition home or self-care (01) ==
LOC: CT 07:13
PROVIDERS: PCP Nurse Practitioner Family; Referring Provider Physician Assistant Surgical; Visit Provider Physician Assistant Surgical
DX: S43.61XA Sprain of right sternoclavicular joint, initial encounter (principal); S43.62XA Sprain of left sternoclavicular joint, initial encounter
CPT/HCPCS: 71250

== ENCOUNTER → 2022-05-20 | Outpatient (CLI) | payer OTHER, SELFPAY ==
[2022-05-20 12:09] LABS: PSA,Total- Diagnostic 0.04 ng/mL (0.0-4.0)
== END | disposition home or self-care (01) ==
PROVIDERS: PCP Nurse Practitioner Family; Referring Provider Registered Nurse; Visit Provider Registered Nurse
DX: C61 Malignant neoplasm of prostate (principal)
CPT/HCPCS: 36415; 84153

== ENCOUNTER → 2022-12-03 | Outpatient (CLI) | payer OTHER, SELFPAY ==
[2022-12-03 08:36] LABS: PSA,Total- Diagnostic 0.07 ng/mL (0.0-4.0)
== END | disposition home or self-care (01) ==
PROVIDERS: PCP Nurse Practitioner Family; Referring Provider Urology; Visit Provider Urology
DX: C61 Malignant neoplasm of prostate (principal)
CPT/HCPCS: 36415; 84153

== ENCOUNTER 2023-05-30 08:30 | Outpatient (RCR) | payer OTHER, SELFPAY ==
--- NOTE | 2023-05-30 08:52 | HP.PTDCSUM ---
Discharge Summary D/C summary: It has been my pleasure to treat JOSE GUADALUPE NGUYEN referred by Dr. Zeus Long DPM, with the diagnosis of R peroneal tendon repair 03/21/23 for a total of 4 visit(s). Discharge Date: 05/30/23 Please see the following information for a summary of their discharge status. Subjective Subjective: Doing well. Pain is not an issue. Has been up and down step a million times with firewood. Arch can bother if overdoes it. Sleeping well. No limping. Ready and wants to go back to work. No f/u with doctor until 06/11/23. Will call doctor to seek release. activity is normal at home. On feet 75% of day. Has been on feet alot at home. Tolerating wearing shoe well. Been exercising at home, been on feet all day, pured concrete one day without a problem. Needs to go back to work financially also. Pain R lat ankle: Pain Intensity (Out of 10): 4 Overall Improvement % Improvement: 100 Objective Objective/Function: 5 DF, 60 PF, 14 eversion, and 24 inversion 4/5 eversion, 5/5 PF, DF and inversion strength, no pain. walking without antalgia and normal steps today. Heel raise unilaterally without pain or problems. Goals Goal 1:: Full symmetrical aROM R ankle with L and no pain Goal Progress: Goal Met Goal 2:: Pt feel 100% back to normal activity without soreness Goal Progress: Goal Met Goal 3:: I appropriate management of condition Goal Progress: Goal Met Goal 4:: Walk steps and community wihtout gait deviations without brace or crutch as allowed Goal Progress: Goal Met Goal 5:: Return to work ready Goal Progress: feels ready Goal 6:: 51 LEFS score Goal Progress: Goal Met Plan Plan: d/c D/C Information Discharge Comments: Pt to contact doctor to get released to work which appears appropriate from therapist point of view. He needs financially to get back to work if possible. d/c sentence: If there are questions or concerns regarding this patient's physical therapy, please feel free to call me at [phone]. Thank you for the referral of this patient. Sincerely, Bon Rojas, DPT, OCS, CSCS Balance/Gait/Functional tests Balance/Special Test Scores Lower Extremity Functional Score: 80
== END 2023-05-30 09:03 | disposition home or self-care (01) ==
LOC: PT 08:30
PROVIDERS: PCP Nurse Practitioner Family; Referring Provider Podiatrist Foot & Ankle Surgery; Visit Provider Podiatrist Foot & Ankle Surgery
DX: Z48.89 Encounter for other specified surgical aftercare (principal); Z98.890 Other specified postprocedural states
CPT/HCPCS: 97110; 97161; 97164; 97530

== ENCOUNTER → 2023-06-05 | Outpatient (CLI) | payer OTHER, SELFPAY ==
[2023-06-05 08:16] LABS: PSA,Total- Diagnostic 0.07 ng/mL (0.0-4.0)
== END | disposition home or self-care (01) ==
PROVIDERS: PCP Nurse Practitioner Family; Referring Provider Urology; Visit Provider Urology
DX: C61 Malignant neoplasm of prostate (principal)
CPT/HCPCS: 36415; 84153

== ENCOUNTER → 2023-12-10 | Outpatient (CLI) | payer OTHER, SELFPAY ==
--- OUTSIDE RECORDS SUMMARY | 2023-12-10 07:27 | XMS RPT_ITS | CCD ---
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 Name Role Phone GAYATRI MENON DO Unavailable Unavailable GAYATRI MENON DO Unavailable Unavailable GAYATRI MENON DO Unavailable Unavailable MANUELMOSHE RUSHING Unavailable Unavailable MANUEL, MOSHE Peres Unavailable Unavailable PROVIDER, UNKNOWN Unavailable Unavailable MANUEL GLUING MACHINE OFFBEARER - RANGE OPERATOR, MOSHE Peres Primary Care Phys ician MANUEL GLUING MACHINE OFFBEARER - RANGE OPERATOR, MOSHE Peres Attending U navailable MANUEL GLUING MACHINE OFFBEARER - RANGE OPERATOR, MOSHE Peres Primary Care U navailable SUPPAN DPM, KALLIE Boyd Attending Unavailable MANUEL GLUING MACHINE OFFBEARER - RANGE OPERATOR, MOSHE Peres Primary Care U navailable SUPPAN DPM, KALLIE Boyd Attending Unavailable MANUEL GLUING MACHINE OFFBEARER - RANGE OPERATOR, MOSHE Peres Primary Care U navailable MANUEL GLUING MACHINE OFFBEARER - RANGE OPERATOR, MOSHE Peres Attending U navailable MANUEL GLUING MACHINE OFFBEARER - RANGE OPERATOR, MOSHE Peres Primary Care U navailable MANUEL GLUING MACHINE OFFBEARER - RANGE OPERATOR, MOSHE Peres Attending U navailable MANUEL GLUING MACHINE OFFBEARER - RANGE OPERATOR, MOSHE Peres Primary Care U navailable MANUEL GLUING MACHINE OFFBEARER - RANGE OPERATOR, MOSHE Peres Attending U navailable MANUEL GLUING MACHINE OFFBEARER - RANGE OPERATOR, MOSHE Peres Primary Care U navailable Allergies Allergy Classification Reported Allergen(s) Allergy Type Date of Onset Reaction(s) Facility (1 source) rosuvastatin Drug Allergy [facility] Repository (5 sources) Niacin; Translations: [niacin] Drug Allergy Abdominal pain (finding), Syncope (disorder), Eruption of skin (disorder) [facility] (5 sources) rosuvastatin; Translations: [rosuvastatin] Drug Allergy Muscle pain (finding) [facility] (5 sources) Sulfamethoxazole / Trimethoprim; Translations: [sulfamethoxazole-tr imethoprim] Drug Allergy Itching (finding), Eruption of skin (disorder) [facility] Medications Current Medications Medication Drug Class(es) Dates Sig (Normalized) Sig (Original) atenolol 25 mg oral tablet (5 sources) beta-Adrenergic Ethan Start: 01-23-2023 End: 07-22-2023 atenolol 25 mg oral tablet Dose : 25 mg = 1 tab(s), Oral, qDay, # 90 tab(s), 1 Refill(s), Pharmacy: [id number], HTN, goal below 140/90, 182.9, cm, 01/23/23 8:05:00 EDT, Height, kg, 01/23/23 8:05:00 EDT, Dosing Weight Start Date: 01/23/23 Stop Date: 07/22/23 Status: Ordered Completed/Discontinued Medications Medication Drug Class(es) Dates Sig (Normalized) Sig (Original) triamcinolone acetonide 1 mg/ml topical cream (4 sources) Corticosteroid Start: 08-02-2019 End: 08-15-2019 triamcinolone 0.1% topical cream Apply 1 jazmyn, Topical, BID, # 60 gram(s), 0 Refill(s), Cream Start Date: 08/02/19 Stop Date: 08/15/19 Status: Ordered Problems Problem Classification Problem Date Documented Da te Episodic/Chronic Cancer of prostate (5 sources) Malignant tumor of prostate 08-02-2019 Chronic Chronic kidney disease (5 sources) Chronic kidney disease stage 3 02-01-2021 Chronic Diabetes mellitus without complication (5 sources) Impaired fasting glycemia 02-01-2020 Episodic Disorders of lipid metabolism (5 sources) Hyperlipidemia 02-01-2020 Chronic Essential hypertension (5 sources) Hypertensive disorder 07-30-2019 Chronic Hyperplasia of prostate (5 sources) Benign prostatic hyperplasia 07-30-2019 Chronic Nutritional deficiencies (5 sources) Vitamin D deficiency 10-12-2021 Chronic Osteoarthritis (5 sources) Osteoarthritis 07-30-2019 Chronic Other connective tissue disease (3 sources) Bone finding 01-22-2022 Episodic Other connective tissue disease (1 source) Foot pain 01-23-2023 Episodic Other diseases of kidney and ureters (5 sources) Renal impairment 02-01-2020 Episodic Other screening for suspected conditions (not mental disorders or infectious disease) (5 sources) Raised prostate specific antigen 07-30-2019 Episodic Other upper respiratory disease (5 sources) Seasonal allergy 02-01-2020 Chronic Residual codes; unclassified (5 sources) Increased body mass index 02-01-2020 Episodic Rheumatoid arthritis and related disease (5 sources) Rheumatoid arthritis 07-30-2019 Chronic Unclassified (2 sources) Non-smoker 07-25-2022 Results Test Name Value Interpretation Reference Range Facil ity Vital Signs Date Time Vital Sign Value Performing Clinician Faci lity 03-21-2023 10:50-0400 Diastolic Blood Pressure Non-Invasive 77 1 KALLIE SUPPAN DPM [facility] 03-21-2023 10:50-0400 Heart rate 57 /min KALLIE SUPPAN DPM [facility] 03-21-2023 10:50-0400 Systolic Blood Pressure Non-Invasive 120 1 KALLIE SUPPAN DPM [facility] 03-21-2023 10:45-0400 Diastolic Blood Pressure Non-Invasive 85 1 KALLIE SUPPAN DPM [facility] 03-21-2023 10:45-0400 Heart rate 55 /min KALLIE SUPPAN DPM [facility] 03-21-2023 10:45-0400 Systolic Blood Pressure Non-Invasive 130 1 KALLIE SUPPAN DPM [facility] 03-21-2023 10:40-0400 Diastolic Blood Pressure Non-Invasive 90 1 KALLIE SUPPAN DPM [facility] 03-21-2023 10:40-0400 Heart rate 60 /min KALLIE SUPPAN DPM [facility] 03-21-2023 10:40-0400 Systolic Blood Pressure Non-Invasive 131 1 KALLIE SUPPAN DPM [facility] 03-21-2023 10:30-0400 Body temperature 97.34 [degF] KALLIE SUPPAN DPM [facility] 03-21-2023 10:30-0400 Respiratory rate 14 /min KALLIE SUPPAN DPM [facility] 03-21-2023 10:25-0400 Respiratory Rate - Anes 16 br/min KALLIE SUPPAN DPM [facility] 03-21-2023 10:20-0400 Respiratory Rate - Anes 0 br/min KALLIE SUPPAN DPM [facility] 03-21-2023 10:20-0400 temperature 97.7 [degF] KALLIE SUPPAN DPM [facility] 03-21-2023 10:15-0400 Respiratory Rate - Anes 0 br/min KALLIE SUPPAN DPM [facility] 03-21-2023 10:15-0400 temperature 97.7 [degF] KALLIE SUPPAN DPM [facility] 03-21-2023 10:09-0400 temperature 97.7 [degF] KALLIE SUPPAN DPM [facility] 03-21-2023 08:37-0400 Body height 182.9 cm KALLIE SUPPAN DPM [facility] 03-21-2023 08:37-0400 Body temperature 98.42 [degF] KALLIE SUPPAN DPM [facility] 03-21-2023 08:37-0400 Body weight 106.8 kg KALLIE SUPPAN DPM [facility] 03-21-2023 08:37-0400 Heart rate 56 /min KALLIE SUPPAN DPM [facility] 03-21-2023 08:37-0400 Respiratory rate 13 /min KALLIE SUPPAN DPM [facility] Encounters Encounter Date Encounter Type Care Provider Facility Start: 05-13-2023 End: 05-14-2023 ambulatory MOSHE HARRELLPKINS GLUING MACHINE OFFBEARER - RANGE OPERATOR Facility:B Start: 03-21-2023 End: 03-21-2023 ambulatory KALLIE N SUPPAN DPM Facility:[facility] Start: 03-21-2023 End: 03-21-2023 SAME DAY STAY KALLIE N SUPPAN DPM [facility] Start: 03-12-2023 End: 03-13-2023 ambulatory KALLIE N SUPPAN DPM Facility:[facility] Start: 01-24-2023 End: 01-25-2023 ambulatory MOSHE JACKSON GLUING MACHINE OFFBEARER - RANGE OPERATOR Facility:[facility] Start: 01-14-2023 End: 01-15-2023 ambulatory MOSHE HARRELLPKINS GLUING MACHINE OFFBEARER - RANGE OPERATOR Facility:[facility] Start: 01-14-2023 End: 01-14-2023 Patient encounter procedure MOSHE JACKSON GLUING MACHINE OFFBEARER - RANGE OPERATOR [facility] Start: 07-16-2022 End: 07-17-2022 ambulatory MOSHE JACKSON GLUING MACHINE OFFBEARER - RANGE OPERATOR Facility:[facility] Start: 07-16-2022 End: 07-16-2022 Patient encounter procedure MOSHE JACKSON GLUING MACHINE OFFBEARER - RANGE OPERATOR [facility] Start: 01-21-2022 End: 01-21-2022 Patient encounter procedure MOSHE HARRELLPKINS GLUING MACHINE OFFBEARER - RANGE OPERATOR [facility] Start: 01-16-2022 End: 01-16-2022 Patient encounter procedure MOSHE JACKSON GLUING MACHINE OFFBEARER - RANGE OPERATOR [facility] Start: 06-02-2018 End: 06-02-2018 Emergency department patient visit GAYATRI URIAS [facility] Procedures Date Procedure Procedure Detail Performing Clinician Start: 10-27-2007 Prostate biopsy reva hancock (specimen) MOSHE MANUEL GLUING MACHINE OFFBEARER - RANGE OPERATOR Start: 10-27-1962 Tonsillectomy MOSHE DAVIS GLUING MACHINE OFFBEARER - RANGE OPERATOR Colonoscopy KALLIE SAUNDERS DP M Osteophyte of bone (disorder) KALLIE SAUNDERS DPM Immunizations Immunization Date Immunization Notes Care Provider Deven gonzales 08-31-2015 tetanus toxoid, redu kathleen diphtheria toxoid, and acellular pertussis vaccine, adsorbed MOSHE HARRELLPKINS GLUING MACHINE OFFBEARER - RANGE OPERATOR [facility] Payers Date Payer Category Payer Private Health Insurance [id number] 2022 Private Health Insurance [id number] 1960 Unknown [id number] [id number] [id number] Unknown [id number] 2.16.8 [id number] 1959 Unknown [id number] 2.16.8 [id number] 1959 Unknown [id number] 2.16.8 [id number] 1959 Unknown [id number] 2.16.8 [id number] 1959 Unknown [id number] [id number] [id number] Unknown [id number] Social History Date Type Detail Facility Start: 07-30-2019 Never smoked t obacco (finding) [facility] Sex Assigned At Male [facility] Functional Status Date Assessment Result Facility 03-21-2023 Functional Status ice on [facility] 03-21-2023 Functional Status Maintained [facility] Mental Status Date Assessment Result [facility] 03-21-2023 Mental Status Oriented x 4 [facility] 03-21-2023 Mental Status [facility] Clinical Notes 12-29-2020 to 03-21-2023 Note Date & Type Note Facility [facility] ADMISSION HISTORY AN D PHYSICIAL CHIEF COMPLAINT: HISTORY OF PRESENT ILLNESS: REVIEW OF SYSTEMS: ACTIVE PROBLEMS: (16) Abnormal bone xray (534225447) BPH with elevated PSA (365012811) CKD (chronic kidney disease), stage III (1163303043) DJD (degenerative joint disease) (3865858917) Elevated PSA (1317344774) HTN, goal below 140/90 (9381846789) Hyperlipidemia (91016057) Impaired fasting glucose (6869836130) Increased BMI (body mass index) (26760805) Non-smoker (94737838) Pain in right foot (233593480) Prostate cancer (8924946683) RA (rheumatoid arthritis) (310274686) Renal insufficiency (011361373) Seasonal allergies (3745173567) Vitamin D deficiency (24961369) MEDICATIONS: Active Inpt Meds: None Active PRN Meds: None One Time Meds: None Active IV Meds: Lactated Ringers Infusion 1000 mL (LR 1000 mL) Start: 03/21/23 8:25:00 EDT, Rate: 125 mL/hr, 03/21/23 8:25:00 EDT Sodium Chloride 0.9% intravenous solution 1,000 mL (Normal Saline 1,000 mL) Start: 03/21/23 8:54:00 EDT, Rate: 125 mL/hr, 03/21/23 8:54:00 EDT ALLERGIES: (3) Bactrim Crestor Niaspan ER FAMILY HISTORY: SOCIAL HISTORY: PHYSICAL EXAM: VITALS: [id number](kg) 03/21 08:3736.9--114691QI25/03833.8 24 Hr Tmax: 36.9 at 03/21 08:37 36 Hr Tmax: 36.9 at 03/21 08:37 Vital Signs are the last 5 in the past 48 hours. Weights display the last 5 within 7 days. Initial Wt: 03/21 106.8 kg 235 lb Current Wt: 03/21 106.8 kg 235 lb GENERAL: HEENT: CARDIOVASCULAR: RESPIRATORY: ABDOMEN: EXREMETIES: NEUROLOGICAL: PSYCHIATRIC: LABS: No 36hr Lab Data DIAGNOSTICS: IMPRESSION: PLAN: History and Physical Update I have examined the patient; reviewed the H&P and there are no changes to the H&P unless noted below. Future Appointments Appointment Date:07/22/2023 08:00:00 AM Scheduled Provider:MOSHE JACKSON APRN, CNP Location[facility] Appointment Type:PC OV Follow Up Future Scheduled Tests Laboratory* Complete Blood Count 07/26/23 * Lipid Profile 07/26/23 * Albumin/Creatinine Ratio, Random Urine 07/26/23 * Vitamin D Level 07/26/23 * Complete Metabolic Panel 07/26/23 [facility] 05-26-2023 Hospital Discharge instructions Patient Education 03/21/2023 10:49:09 Outpatient Surgery, Adult, Care After Outpatient Surgery, Adult, Care After These instructions provide you with information about caring for yourself after your procedure. Your health care provider may also give you more specific instructions. Your treatment has been plannedaccording to current medical practices, but problems sometimes occur. Call your health care provider if you have any problems or questions after your procedure. What can I expect after the procedure? After the procedure, it is common to have: Tenderness and numbness at the surgical site. Swelling and bruising around the surgical site. Nausea. Follow these instructions at home: For at least 24 hours after the procedure: Have a responsible adult stay with you. It is important to have someone help care for you until youare awake and alert. Rest as needed. Do not: ?Participate in activities in which you could fall or become injured. ?Drive. ?Use heavy machinery. ?Drink alcohol. ?Take sleeping pills or medicines that cause drowsiness. ?Make important decisions or sign legal documents. ?Take care of children on your own. Activity Return to your normal activities as told by your health care provider. Ask your health care provider what activities are safe for you. Do not lift anything that is heavier than 10 lb (4.5 kg), or the limit that your health care provider tells you, until your health care provider says it is okay. Do not play contact sports until your health care provider says it is okay. Incision care Follow instructions from your health care provider about how to take care of an incision, if you have one. Check your incision area every day for signs of infection. Check for: ?More redness, swelling, or pain. ?More fluid or blood. ?Warmth. ?Pus or a bad smell. Medicines Take rwab-iio-oojjiua and prescription medicines only as told by your health care provider. Do not drive or use heavy machinery while taking prescription pain medicines. Eating and drinking Follow the diet recommended by your health care provider. When you are hungry, begin eating light and bland foods such as toast. Gradually return to your regular diet. If you vomit: ?Drink water, juice, or soup when you can drink without vomiting. ?Make sure you have little or no nausea before eating solid foods. General instructions Keep all follow-up visits as told by your health care provider. This is important. Contact a health care provider if: You have more redness, swelling, or pain around your incision. You have more fluid or blood coming from your incision. Your incision feels warm to the touch. You have pus or a bad smell coming from your incision. You have a fever. You feel light-headed or you faint. You develop a rash. You keep feeling nauseous or keep vomiting. You have very bad pain, even after taking the medicines your health care provider has prescribed orrecommended. You have constipation. Get help right away if: You are unable to pass urine. You have trouble breathing. Summary Have a responsible adult stay with you for at least 24 hours after the procedure. Nausea is common after a procedure. Make sure you have little or no nausea before eating solid foods. Follow the diet recommended by your health care provider. Ask your health care provider what activities are safe for you. This information is not intended to replace advice given to you by your health care provider. Make sure you discuss any questions you have with your health care provider. Document Released: 02/02/2017 Document Revised: 01/11/2019 Document Reviewed: 02/02/2017 [employer] Patient Education 2020 [employer] 03/21/2023 10:42:27 Monitored Anesthesia Care, Care After Monitored Anesthesia Care, Care After These instructions provide you with information about caring for yourself after your procedure. Your health care provider may also give you more specific instructions. Your treatment has been plannedaccording to current medical practices, but problems sometimes occur. Call your health care provider if you have any problems or questions after your procedure. What can I expect after the procedure? After your procedure, you may: Feel sleepy for several hours. Feel clumsy and have poor balance for several hours. Feel forgetful about what happened after the procedure. Have poor judgment for several hours. Feel nauseous or vomit. Have a sore throat if you had a breathing tube during the procedure. Follow these instructions at home: For at least 24 hours after the procedure: Have a responsible adult stay with you. It is important to have someone help care for you until youare awake and alert. Rest as needed. Do not: ?Participate in activities in which you could fall or become injured. ?Drive. ?Use heavy machinery. ?Drink alcohol. ?Take sleeping pills or medicines that cause drowsiness. ?Make important decisions or sign legal documents. ?Take care of children on your own. Eating and drinking Follow the diet that is recommended by your health care provider. If you vomit, drink water, juice, or soup when you can drink without vomiting. Make sure you have little or no nausea before eating solid foods. General instructions Take vvuv-rru-mcficzv and prescription medicines only as told by your health care provider. If you have sleep apnea, surgery and certain medicines can increase your risk for breathing problems. Follow instructions from your health care provider about wearing your sleep device: ?Anytime you are sleeping, including during daytime naps. ?While taking prescription pain medicines, sleeping medicines, or medicines that make you drowsy. If you smoke, do not smoke without supervision. Keep all follow-up visits as told by your health care provider. This is important. Contact a health care provider if: You keep feeling nauseous or you keep vomiting. You feel light-headed. You develop a rash. You have a fever. Get help right away if: You have trouble breathing. Summary For several hours after your procedure, you may feel sleepy and have poor judgment. Have a responsible adult stay with you for at least 24 hours or until you are awake and alert. This information is not intended to replace advice given to you by your health care provider. Make sure you discuss any questions you have with your health care provider. Document Released: 02/02/2017 Document Revised: 01/11/2019 Document Reviewed: 02/02/2017 [employer] Patient Education 2020 [employer] Follow Up Care 02/26/2023 09:12:53 With:KALLIE SAUNDERS Address: [address], [address] [facility] [place] [address]- Business (1) When:03/27/2023 13:40:00 [facility] 05-26-2023 Summary of episode note Discharge Instructions Thank you for allowing [facility] to assist you with your healthcare needs. The following is importantdischarge information regarding your hospital visit. Your Care Team MOSHE JACKSON APRN, CNP What to do next Scheduled Follow-Up Appointments Appointment Type When With Where Contact InformationPC OV Follow Up 07/22/2023 08:00 AM EDT MOSHE JACKSON APRN, CNP [facility] Follow Up Appointments Follow Up with KALLIE SAUNDERS When 03/27/2023 01:40 PM EDT Where: [address], [address] [facility] [place] [address]- Business (1) The Following Activity and Diet Have Been Ordered for You Discharge Activity - Ordered -- Other, Follow the post-operative/post-procedure activity instructions provided by your physician's office., 03/21/23 10:30:00 EDT No qualifying data available. The Following Equipment Has Been Ordered for You Discharge Home Equipment Discharge Wound Care - Ordered -- Follow the post-operative/post-procedure wound care instructions provided by your physician's office., 03/21/23 10:30:00 EDT Allergies Bactrim (Itching, Rash) Crestor (Muscle pain) Niaspan ER (Abdominal pain, Syncope, Rash) Medications Please ask your primary doctor or pharmacist before taking any other medication not listed, including over the counter drugs, herbal medications, vitamins and or supplements as they may interact withyour home medications. What How Much When Why Instructions Last Dose Unchanged atenolol (atenolol 25 mg oral tablet) 1 tab(s) by mouth Once a day HTN, goal below 140/90 Duration: 90 Days Unchanged cholecalciferol (cholecalciferol 1250 mcg (50,000 intl units) oral capsule) 1 cap by mouth Every week Vitamin D deficiency Duration: 90 Days Unchanged fenofibrate (fenofibrate 134 mg oral capsule) 1 cap by mouth Once a day Hyperlipidemia Duration: 90 Days Unchanged mometasone topical (Elocon 0.1% topical cream) 1 application Topical Every day Unchanged mometasone topical (mometasone 0.1% topical cream) 1 application Topical Once a day as needed for Skin irritation Unchanged simvastatin (simvastatin 40 mg oral tablet) 1 tab(s) by mouth Daily at bedtime Hyperlipidemia Duration: 90 Days Please take this list to your next doctor s visit. Bring all medications you take, including over the counter medications, herbals and other supplements with you to your doctor s visit. Patients and families are reminded to discard old lists and to update any records with all medication providers or retail pharmacies. Education Materials Outpatient Surgery, Adult, Care After These instructions provide you with information about caring for yourself after your procedure. Your health care provider may also give you more specific instructions. Your treatment has been plannedaccording to current medical practices, but problems sometimes occur. Call your health care provider if you have any problems or questions after your procedure. What can I expect after the procedure? After the procedure, it is common to have: Tenderness and numbness at the surgical site. Swelling and bruising around the surgical site. Nausea. Follow these instructions at home: For at least 24 hours after the procedure: Have a responsible adult stay with you. It is important to have someone help care for you until youare awake and alert. Rest as needed. Do not: ? Participate in activities in which you could fall or become injured. ? Drive. ? Use heavy machinery. ? Drink alcohol. ? Take sleeping pills or medicines that cause drowsiness. ? Make important decisions or sign legal documents. ? Take care of children on your own. Activity Return to your normal activities as told by your health care provider. Ask your health care provider what activities are safe for you. Do not lift anything that is heavier than 10 lb (4.5 kg), or the limit that your health care provider tells you, until your health care provider says it is okay. Do not play contact sports until your health care provider says it is okay. Incision care Follow instructions from your health care provider about how to take care of an incision, if you have one. Check your incision area every day for signs of infection. Check for: ? More redness, swelling, or pain. ? More fluid or blood. ? Warmth. ? Pus or a bad smell. Medicines Take yxiw-icz-dqmijnu and prescription medicines only as told by your health care provider. Do not drive or use heavy machinery while taking prescription pain medicines. Eating and drinking Follow the diet recommended by your health care provider. When you are hungry, begin eating light and bland foods such as toast. Gradually return to your regular diet. If you vomit: ? Drink water, juice, or soup when you can drink without vomiting. ? Make sure you have little or no nausea before eating solid foods. General instructions Keep all follow-up visits as told by your health care provider. This is important. Contact a health care provider if: You have more redness, swelling, or pain around your incision. You have more fluid or blood coming from your incision. Your incision feels warm to the touch. You have pus or a bad smell coming from your incision. You have a fever. You feel light-headed or you faint. You develop a rash. You keep feeling nauseous or keep vomiting. You have very bad pain, even after taking the medicines your health care provider has prescribed orrecommended. You have constipation. Get help right away if: You are unable to pass urine. You have trouble breathing. Summary Have a responsible adult stay with you for at least 24 hours after the procedure. Nausea is common after a procedure. Make sure you have little or no nausea before eating solid foods. Follow the diet recommended by your health care provider. Ask your health care provider what activities are safe for you. This information is not intended to replace advice given to you by your health care provider. Make sure you discuss any questions you have with your health care provider. Document Released: 02/02/2017 Document Revised: 01/11/2019 Document Reviewed: 02/02/2017 [employer] Patient Education 2020 [employer] Monitored Anesthesia Care, Care After These instructions provide you with information about caring for yourself after your procedure. Your health care provider may also give you more specific instructions. Your treatment has been plannedaccording to current medical practices, but problems sometimes occur. Call your health care provider if you have any problems or questions after your procedure. What can I expect after the procedure? After your procedure, you may: Feel sleepy for several hours. Feel clumsy and have poor balance for several hours. Feel forgetful about what happened after the procedure. Have poor judgment for several hours. Feel nauseous or vomit. Have a sore throat if you had a breathing tube during the procedure. Follow these instructions at home: For at least 24 hours after the procedure: Have a responsible adult stay with you. It is important to have someone help care for you until youare awake and alert. Rest as needed. Do not: ? Participate in activities in which you could fall or become injured. ? Drive. ? Use heavy machinery. ? Drink alcohol. ? Take sleeping pills or medicines that cause drowsiness. ? Make important decisions or sign legal documents. ? Take care of children on your own. Eating and drinking Follow the diet that is recommended by your health care provider. If you vomit, drink water, juice, or soup when you can drink without vomiting. Make sure you have little or no nausea before eating solid foods. General instructions Take jefh-ziz-cnfelob and prescription medicines only as told by your health care provider. If you have sleep apnea, surgery and certain medicines can increase your risk for breathing problems. Follow instructions from your health care provider about wearing your sleep device: ? Anytime you are sleeping, including during daytime naps. ? While taking prescription pain medicines, sleeping medicines, or medicines that make you drowsy. If you smoke, do not smoke without supervision. Keep all follow-up visits as told by your health care provider. This is important. Contact a health care provider if: You keep feeling nauseous or you keep vomiting. You feel light-headed. You develop a rash. You have a fever. Get help right away if: You have trouble breathing. Summary For several hours after your procedure, you may feel sleepy and have poor judgment. Have a responsible adult stay with you for at least 24 hours or until you are awake and alert. This information is not intended to replace advice given to you by your health care provider. Make sure you discuss any questions you have with your health care provider. Document Released: 02/02/2017 Document Revised: 01/11/2019 Document Reviewed: 02/02/2017 [employer] Patient Education 2020 [employer] Additional Information VACCINATE! IT SAVES LIVES! Members of the community who have not yet received the COVID-19 vaccine and would like to receive it can visit one of [facility] vaccine clinics. There are many vaccine clinic locations within the [facility]. For locations and available times, please visit [email or web address].[place].gov/. It is important to note that some COVID mobile vaccine clinics are held outdoors and may be canceled in rainy or stormy conditions. To learn more about pediatric vaccinations (ages 5-11), we invite you to visit the [facility] webpage. [email or web address].[email or web address].org/pages/[email or web address]-Niiqt-Oxrfnlcwuou-Rcjiufoxks-Fnrwf-Wfe stions.htmlTo learn more about the COVID-19 vaccine, we invite you to visit the CDC website for a list of frequently asked questions.https://www.cdc.gov/coronavirus/2019-ncov/vaccines/faq.html [employer] Patient Portal Access Instructions: Stay connected with your healthcare team and access your personal medical information anytime with the [employer] Patient Portal. Please follow the directions below to create your [employer] account: 1.Access the email account you provided upon registration to the hospital/physician office.2.Look for an invitation email from [facility].3.Open the email and access the invitation link: AcceptInvitation to [employer].4.Fill in the required hooks to create your account. To access your account, visit [email or web address]. Click the blue button labeled Access Patient Portal and then log in with the username and password that you created in the steps above. You will be able to view your test results, lab results, a summary of your visits, upcoming appointments and more. There is also a convenient messaging option where you can send secure messages to your p rovider. In addition, you will have the ability to download any documents or summaries to your computer and/or send the information securely to a physician. Remember that your healthcare information is confidential, so carefully consider who you will allowto register on the [employer] Patient Portal for access to your information. You can also access the [employer] Patient Portal on the [employer] j[employer]myn. Simply click on Patient Portal and then log into your account. If you would like to receive a full copy of your medical records, please contact the [facility] Medical Records Department by calling [phone], Friday through Friday between 8 a.m. and 4:30 p.m. HOW TO SAFELY DISPOSE OF PRESCRIPTION MEDICATIONS Please use one of the following methods to safely dispose of your unused medications. 1.Use a drug disposal kit: the drug disposal pouch allows you to safely discard your old and unuseddrugs. Ask your nurse to give you one when you are discharged.2.Visit a local take-back location: Many local pharmacies and police departments have programs that collect old and unwanted prescriptiondrugs. Call your local pharmacy or go to http://PDV.[employer]/6R0Az5h to find one close to you.3.Make use of household items: Use cat litter or old coffee grounds to dispose medications if other options arenot available. Mix your drugs with these household products, seal them in an airtight container andthrow it into the garbage. Call [facility]: [phone] to be sure your drugs can be disposed of in this way. Some medicines may require a different approach.4.Never flush your medications down the toilet. IF YOU HAVE BEEN PRESCRIBED AN OPIOID FOR PAIN If you have been prescribed an opioid (such as hydrocodone, oxycodone or morphine), it is critical to understand the possible side effects and risks of opioid pain medications. Even when taken as directed, opioids can have several side effects including: Tolerance, meaning you might need to take more of a medication for the same pain relief. Nausea, vomiting and/or constipation. Sleepiness, dizziness, dry mouth, confusion, depression or itching. Physical dependence, meaning you have withdrawal symptoms when a medication is stopped, can develop within a few days. KNOW YOUR RESPONSIBILITIES It is important to know exactly how much and how often to take the opioid pain medications you are prescribed. Never take opioids in higher amounts or more often than prescribed. Do not combine opioids with alcohol or other drugs that cause drowsiness, such as benzodiazepines, also known as benzos, including diazepam and alprazolam, muscle relaxants or sleep aids. Never sell or share prescription opioids. This is illegal. Store opioids in a secure place and out of reach of others (including children, family, friends and visitors). The last page of this document has been signed and retained as a CHART COPY. Signatures Patient Education Materials Outpatient Surgery, Adult, Care After Monitored Anesthesia Care, Care After Medication Leaflets My discharge plan and instructions have been reviewed and explained to me and I,JOSE GUADALUPE NGUYEN SR my current condition and have read and understand these discharge instructions. I have received a written copy of the plan/instructions. If I have questions, I am aware that I should contact my doctor. 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 Family's history: negative. Review of Systems Ear/Nose/Mouth/Throat: Negative except as documented in history of present illness. Respiratory: Negative except as documented in history of present illness. Cardiovascular: Negative except as documented in history of present illness. Gastrointestinal: Negative except as documented in history of present illness. Genitourinary: Negative except as documented in history of present illness. Endocrine: Negative except as documented in history of present illness. Musculoskeletal: Negative except as documented in history of present illness. Integumentary: Negative except as documented in history of present illness. Neurologic: Negative except as documented in history of present illness. Health Status Allergies: Allergic Reactions (Selected) Severity Not Documented Bactrim- Rash and itching. Crestor- Muscle pain. Niaspan ER- Rash, syncope and abdominal pain., Allergies (3) ActiveReaction BactrimItching CrestorMuscle pain Niaspan ERAbdominal pain Current medications: (Selected) Inpatient Medications Ordered LR 1000 mL: 125 mL/hr, Intravenous Normal Saline 1,000 mL: 125 mL/hr, Intravenous Prescriptions Prescribed atenolol 25 mg oral tablet: 25 mg, 1 tab(s), Oral, qDay, for 90 day(s), 90 tab(s), 1 Refill(s) cholecalciferol 1250 mcg (50,000 intl units) oral capsule: 50,000 International_Unit, 1 cap(s), Oral, qWeek, for 90 day(s), 13 cap(s), 1 Refill(s) fenofibrate 134 mg oral capsule: 134 mg, 1 cap(s), Oral, qDay, for 90 day(s), 90 cap(s), 1 Refill(s) simvastatin 40 mg oral tablet: 40 mg, 1 tab(s), Oral, qHS, for 90 day(s), 90 tab(s), 1 Refill(s) Documented Medications Documented Elocon 0.1% topical cream: 1 jazmyn, Topical, Daily, 0 Refill(s) mometasone 0.1% topical cream: 1 jazmyn, Topical, qDay, PRN: Skin irritation, 15 gram(s), 0 Refill(s), Medications (2) Active Scheduled: (0) Continuous: (2) Lactated Ringers Infusion 1000 mL 1,000 mL, Intravenous, 125 mL/hr NS (0.9% nacl) 1,000 mL 1,000 mL, Intravenous, 125 mL/hr PRN: (0) Problem list: Medical BPH with elevated PSA / SNOMED CT 319209876 / Confirmed Abnormal bone xray / SNOMED CT 371474397 / Confirmed CKD (chronic kidney disease), stage III / SNOMED CT 1325219346 / Confirmed Pain in right foot / SNOMED CT 026113814 / Confirmed Hyperlipidemia / SNOMED CT 43645376 / Confirmed HTN, goal below 140/90 / SNOMED CT 5950220774 / Confirmed Impaired fasting glucose / SNOMED CT 4963912982 / Confirmed Increased BMI (body mass index) / SNOMED CT 25226036 / Confirmed Prostate cancer / SNOMED CT 1700169824 / Confirmed Non-smoker / SNOMED CT 62087084 / Confirmed DJD (degenerative joint disease) / SNOMED CT 5962626074 / Confirmed Elevated PSA / SNOMED CT 1727024416 / Confirmed Renal insufficiency / SNOMED CT 121432381 / Confirmed RA (rheumatoid arthritis) / SNOMED CT 562005893 / Confirmed Seasonal allergies / SNOMED CT 4504355872 / Confirmed Vitamin D deficiency / SNOMED CT 98117744 / Confirmed Resolved: High triglycerides / SNOMED CT 986969904 Resolved: Joint pain / SNOMED CT 63255603 Resolved: Overweight / SNOMED CT 657972799 Canceled: Acute viral pharyngitis / SNOMED CT 625207518, Active Problems (16) Abnormal bone xray BPH with elevated PSA CKD (chronic kidney disease), stage III DJD (degenerative joint disease) Elevated PSA HTN, goal below 140/90 Hyperlipidemia Impaired fasting glucose Increased BMI (body mass index) Non-smoker Pain in right foot Prostate cancer RA (rheumatoid arthritis) Renal insufficiency Seasonal allergies Vitamin D deficiency Histories Past Medical History: Resolved Overweight (291681236): Resolved. High triglycerides (714007869): Resolved. Joint pain (35692165): Resolved. Family History: Cancer Grandparent Breast cancer Mother Rheumatoid arthritis Brother Hypertension Mother Father Heart disease Mother Congestive heart failure Mother Diabetes Father Brother Bipolar 1 disorder Daughter Prostate cancer Brother Procedure history: Prostate biopsy sample (650473461) in 2008 at 47 Years. Tonsillectomy (484896832) in 1963 at 2 Years. Prostatectomy (438583386). Colonoscopy (909380286). Bone spur (9188502584). 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 Physical Examination Vital Signs 03/21/2023 9:40 EDT Heart Rate Monitored 59 bpm bpm Respiratory Rate - Anes 14 br/min br/min 03/21/2023 9:35 EDT Heart Rate Monitored 58 bpm bpm Respiratory Rate - Anes 19 br/min br/min Systolic Blood Pressure Non-Invasive 128 mmHg mmHg Diastolic Blood Pressure Non-Invasive 87 mmHg mmHg 03/21/2023 9:30 EDT Heart Rate Monitored 59 bpm bpm Respiratory Rate - Anes 15 br/min br/min Systolic Blood Pressure Non-Invasive 138 mmHg mmHg Diastolic Blood Pressure Non-Invasive 92 mmHg mmHg 03/21/2023 9:25 EDT Heart Rate Monitored 54 bpm bpm Respiratory Rate - Anes 11 br/min br/min Systolic Blood Pressure Non-Invasive 150 mmHg mmHg Diastolic Blood Pressure Non-Invasive 87 mmHg mmHg 03/21/2023 9:22 EDT Systolic Blood Pressure Non-Invasive 136 mmHg mmHg Diastolic Blood Pressure Non-Invasive 89 mmHg mmHg 03/21/2023 8:37 EDT Temperature Temporal Artery 36.9 DegC Apical Heart Rate 56 bpm LOW Respiratory Rate 13 br/min LOW Systolic Blood Pressure Non-Invasive 153 mmHg HI Diastolic Blood Pressure Non-Invasive 93 mmHg HI Vital Signs(last 24 hrs) Last Charted Heart Rate Rxorlbeig76 bpm (MARCH 21 09:40) Resp Rate L 13br/min (MARCH 21 08:37) PTR595 mmHg (MARCH 21 09:35) DBP87 mmHg (MARCH 21 09:35) Measurements from flowsheet : Measurements 03/21/2023 8:37 EDT Height 182.9 cm Height in inches 72 inch(es) Admission Weight 106.8 kg Weight Lbs 235 lb Weight Method Stated [place] Body Weight 77.62 kg Admission Body Mass Index 31.93 m2 Pain assessment: Pain Assessment 03/21/2023 8:37 EDT Primary Pain Intensity 0 Pain Scale Type 0-10 Pain scale . General: Alert and oriented. Airway: Normal neck range of motion. Mallampati classification: II (soft palate, fauces, uvula visible). Head: Normocephalic. Dentition Evaluation: Intact, Own teeth. Neck: Full range of motion. Respiratory: Lungs are clear to auscultation. Cardiovascular: Normal rate. Heart Sounds: Normal. Gastrointestinal: Soft. Musculoskeletal Normal range of motion. Integumentary: Intact, Warm, Dry. Neurologic: Alert, Oriented. Review / Management Results review: No qualifying data available , Lab results 03/21/2023 9:40 EDT Heart Rate Monitored 59 bpm bpm Respiratory Rate - Anes 14 br/min br/min Oxygen Saturation 96 % % 03/21/2023 9:39 EDT SN - Proc - Anesthesia Type MAC SN - Proc - Actual Procedure EXCISION OF OS PERONEUM RIGHT, REPAIR PERONEAL TENDON RIGHT 03/21/2023 9:38 EDT SN - SP - Prep Agents Chloraprep SN - SP - HR - Method N/A 03/21/2023 9:37 EDT SN - PP - Body Position Supine Standard Intra-op 03/21/2023 9:37 EDT SN - CTm - Surgery Start 03/21/2023 9:36 03/21/2023 9:36 EDT SN - CTm - Surgery Start Surgery Start 03/21/2023 9:35 EDT Heart Rate Monitored 58 bpm bpm Respiratory Rate - Anes 19 br/min br/min Systolic Blood Pressure Non-Invasive 128 mmHg mmHg Diastolic Blood Pressure Non-Invasive 87 mmHg mmHg Oxygen Saturation 95 % % 03/21/2023 9:32 EDT SN - Assess - LOC Alert, Awake SN - Assess - Orientation Oriented X 3 SN - Assess - Post-op Skin Integrity Other See Comments SN - Assess - Abnormality Location BILATERAL LOWER EXTREMITIES SN - Assess - Abnormality Type WOUNDS NOTED ON ANTERIOR SHINS 03/21/2023 9:30 EDT SN - NC - Medication LIDOCAINE 1%/EPI 30ML VIAL XYLOC SN - NC - Route of Administration Local SN - NC - By (Single) SN - NC - By (Single) 03/21/2023 9:30 EDT SN - GCD - Post-operative Diagnosis OS PERONEUM RIGHT FOOT, RUPTURE PERONEUS LONGUS TENDON RIGHT FOOT SN - GCD - Case Level Level 2 03/21/2023 9:30 EDT Heart Rate Monitored 59 bpm bpm Respiratory Rate - Anes 15 br/min br/min Systolic Blood Pressure Non-Invasive 138 mmHg mmHg Diastolic Blood Pressure Non-Invasive 92 mmHg mmHg Oxygen Saturation 95 % % SN - Cul - Culture Type No Specimen per Surgeon 03/21/2023 9:29 EDT SN - CAt - Case Attendee SN - CAt - Case Attendee SN - CAt - Case Attendee SN - CAt - Case Attendee SN - CAt - Case Attendee SN - CAt - Case Attendee SN - CAt - Case Attendee SN - CAt - Case Attendee SN - CAt - Case Attendee SN - CAt - Case Attendee SN - CAt - Role Performed Primary Surgeon SN - CAt - Role Performed Band Director 1 SN - CAt - Role Performed ESTATE CONSERVATOR SN - CAt - Role Performed Scrub 1 SN - CAt - Role Performed Railroad Car Truck Builder 1 03/21/2023 9:25 EDT Heart Rate Monitored 54 bpm bpm Respiratory Rate - Anes 11 br/min br/min Systolic Blood Pressure Non-Invasive 150 mmHg mmHg Diastolic Blood Pressure Non-Invasive 87 mmHg mmHg Oxygen Saturation 99 % % fentaNYL 50 mcg mcg lidocaine 80 mg mg propofol 50 mg mg (In Error) propofol 30 mg mg 03/21/2023 9:24 EDT [place] History and Physical 03/21/2023 9:22 EDT Systolic Blood Pressure Non-Invasive 136 mmHg mmHg Diastolic Blood Pressure Non-Invasive 89 mmHg mmHg 03/21/2023 9:21 EDT SN - CTm - Anesthesia Start Time Anesthesia Start midazolam 2 mg mg 03/21/2023 8:58 EDT SN - Preop - CTm Pt in SDS Room 03/21/2023 8:25 SN - Preop - CTm Pt Ready for OR/Proced 03/21/2023 8:58 03/21/2023 8:56 EDT Hand Right 03/21/2023 20 gauge Peripheral IV Activity: Insert new site Peripheral IV Dressing Condition: Clean, Dry, Intact Peripheral IV Dressing Activity: Applied, Transparent dressing Peripheral IV Line Status/Patency: Continuous infusion Peripheral IV Site Condition: No complications Peripheral IV Equipment: Extension set Peripheral IV Number of Attempts: 1 Sodium Chloride 0.9% Begin Bag 1,000 mL mL 03/21/2023 8:37 EDT Height 182.9 cm Height in inches 72 inch(es) Admission Weight 106.8 kg Weight Lbs 235 lb Weight Method Stated [place] Body Weight 77.62 kg Admission Body Mass Index 31.93 m2 Temperature Temporal Artery 36.9 DegC Apical Heart Rate 56 bpm LOW Respiratory Rate 13 br/min LOW Systolic Blood Pressure Non-Invasive 153 mmHg HI Diastolic Blood Pressure Non-Invasive 93 mmHg HI Primary Pain Intensity 0 Pain Scale Type 0-10 Pain scale Monitor Alarms On and Limits Checked Heart Sounds ICU S1S2 Heart Rhythm Regular Oxygen Therapy Room air Oxygen Saturation 96 % Abdomen Description Non-distended, Soft Abdomen Palpation Non-Tender Bowel Sounds All Quadrants Present Urinary Elimination Voiding, no difficulties Skin Temperature Warm Skin Description Normal for ethnicity Skin Integrity Not intact Skin Moisture General Dry Neurological Symptoms Patient denies Extremity Movement Equal Characteristics of Speech Clear Level of Consciousness Alert YOLA Yes Strength All Extremities Strong Tone All Extremities Normal Sensation All Extremities Intact Affect/Behavior Appropriate, Calm, Cooperative Orientation Oriented x 4 Allergies Yes Consent Form Signed Yes Patient Dressed In Hospital gown, No undergarments Pre-op Preparation Glasses removed CHG Preoperative Wash/Wipe Night before procedure, Day of procedure CHG Skin Prep Completed for Eligible Surgery History & Physical Update On Chart Yes History & Physical On Chart Yes Obstructive Sleep Apnea Assess Completed Yes Belongings At Bedside Glasses, Pants, Shirt, Shoes, Socks, Undergarments Activity Status ADL Ambulating in pak, Awake, Repositions self Assistive Device None NPO Status Maintained Standard Safety ID band on, Allergy Band on, Call device within reach, Bed in low position, Wheels locked, Precautions maintained Allergy Band on and Verified Yes Blood Band on and Verified No Patient ID Band on and Verified Yes Implants Verified Yes Pacemaker/AICD Verified Yes Anesthesia Consent Signed Yes Blood Consent Signed Yes Last Fluid Intake 03/20/2023 22:00 Last Food Intake 03/20/2023 23:00 Last Void 03/21/2023 8:30 03/21/2023 8:35 EDT Infectious Disease Symptoms Patient states no symptoms Safety Brochure Information Reviewed Yes Flex [employer] Video Viewed No Teaching Evaluation Verbalizes/Nonverbally indicates understanding Admission Note-Nursing Same Day Patient History (Modified) . Assessment and Plan [place] [employer] Anesthesiologists (ASA) physical status classification: Class III. Anesthetic Preoperative Plan Premedication: intravenous. Anesthetic technique: MAC. Induction: intravenously. Maintenance airway: Mask. Risks discussed: nausea, vomiting, headache, sore throat, dental injury, hypotension, allergic reaction, serious complications. Informed consent: signed by patient. Notes: CKD III; HTN. Digitally Signed by JOSE SHAHID on 03/21/2023 09:50 AM [facility]05-26-2023 Note [place] ADMISSION HISTORY AND PHYSICIAL CHIEF COMPLAINT: HISTORY OF PRESENT ILLNESS: REVIEW OF SYSTEMS: ACTIVE PROBLEMS: (16) Abnormal bone xray (794948040) BPH with elevated PSA (466039535) CKD (chronic kidney disease), stage III (5201919003) DJD (degenerative joint disease) (8941579002) Elevated PSA (9842391817) HTN, goal below 140/90 (9903388459) Hyperlipidemia (41723965) Impaired fasting glucose (8033840832) Increased BMI (body mass index) (19820214) Non-smoker (94398895) Pain in right foot (808097291) Prostate cancer (8503258282) RA (rheumatoid arthritis) (399460155) Renal insufficiency (200803883) Seasonal allergies (8767715459) Vitamin D deficiency (31430405) MEDICATIONS: Active Inpt Meds: None Active PRN Meds: None One Time Meds: None Active IV Meds: Lactated Ringers Infusion 1000 mL (LR 1000 mL) Start: 03/21/23 8:25:00 EDT, Rate: 125 mL/hr, 03/21/23 8:25:00 EDT Sodium Chloride 0.9% intravenous solution 1,000 mL (Normal Saline 1,000 mL) Start: 03/21/23 8:54:00EDT, Rate: 125 mL/hr, 03/21/23 8:54:00 EDT ALLERGIES: (3) Bactrim Crestor Niaspan ER FAMILY HISTORY: SOCIAL HISTORY: PHYSICAL EXAM: VITALS: PcznczAlijXBPbuvgKOWoF8QII1ValiJq(kg) 03/21 08:3736.9--[id number]/27197.8 24 Hr Tmax: 36.9 at 03/21 08:37 36 Hr Tmax: 36.9 at 03/21 08:37 Vital Signs are the last 5 in the past 48 hours. Weights display the last 5 within 7 days. Initial Wt: 03/21 106.8 kg 235 lb Current Wt: 03/21 106.8 kg 235 lb GENERAL: HEENT: CARDIOVASCULAR: RESPIRATORY: ABDOMEN: EXREMETIES: NEUROLOGICAL: PSYCHIATRIC: LABS: No 36hr Lab Data DIAGNOSTICS: IMPRESSION: PLAN: History and Physical Update I have examined the patient; reviewed the H&P and there are no changes to the H&P unless noted below. Digitally Signed by KALLIE SAUNDERS DPM on 03/21/2023 09:25 AM [facility]07-20-2021 NoteHNO ID: [id number] Author: Rose Neves MD Service: ? Author Type: Physician Type: Progress Notes Filed: 05/15/2021 10:16 AM Note Text: . Respiratory Long Key Note Patient name: Jose Guadalupe Nguyen PCP: SUKHDEV Kraemr CC: Follow-up chest CT HPI: Jose Guadalupe Nguyen 60 year old male never smoker with history of prostate cancer, hyperlipidemia discovered to have several lower lobe lung nodules noted on abdominal CT obtained in April of last year as part of an evaluation for abdominal pain. Full chest CT at that time showed stable nodules but noted to have multiple hilar and mediastinal lymph nodes. Presents today to review surveillance chest CT which shows stable nodules and non-enlarged lymph nodes. He had incidental note of a right thyroid nodule which will require follow-up testing. From a respiratory standpoint, patient states he has been doing well. He is having issues with his allergies manifested as sinus congestion and pressure, clear nasal drainage. No facial pain or fevers. Recently received a steroid injection per his ear nose and throat physician. No specific respiratory complaints, specifically shortness of breath, cough, chest pain, wheezing. No symptoms to suggest hyper- or hypothyroidism. No difficulty swallowing. DATA: Labs: Ref Range AND Units 5 d ago Creatinine 0.73 - 1.22 mg/dL 1.07 eGFR- >60 eGFR-All Other Races . >60 Imaging / Diagnostic Studies: DATE OF EXAM: May 08 2021 ?8:48AM ? [facility] ? 0539 ?- ?CT CHEST W IVCON ?/ PROCEDURE REASON: multiple diagnoses EXAMINATION: ?CHEST CT WITH CONTRAST CLINICAL HISTORY: Lymphadenopathy, Lung nodule(s) ?. ?Prostate carcinoma Comparison: 12/29/2020 RESULT: Limitations: ?None. Lines, tubes, and devices: ?None. Lung parenchyma and airways: 4mm nodule within the right lung on image 120 is stable. ?5 mm nodule within the right lung on image 141 is stable. 3 mm left apical nodule on image 24 is unchanged. ?No consolidation. No suspicious pulmonary nodule. The central airways are patent. Pleural space: ?No pleural effusion. ?No pleural thickening. Lower neck, lymph nodes, and mediastinum: ?Right thyroid nodule of 1.7 cm. ?Stable borderline mediastinal and hilar nodes. ?No developing lymphadenopathy in the supraclavicular, axillary, mediastinal, or hilar regions. Heart, pericardium, and thoracic vessels: ?The thoracic aorta and main pulmonary artery are normal in caliber. The cardiac chambers are normal in size. ?Mild coronary artery atherosclerotic calcifications are noted, although the study is not optimized for coronary assessment. No pericardial effusion or thickening. Bones and soft tissues: ?No destructive bone lesion. Chest wall is unremarkable. Upper abdomen: ?Scans through the upper abdomen reveal fatty liver. IMPRESSION: Stable subcentimeter nodules. ?Stable borderline mediastinal lymph nodes. ?No developing suspicious mass or adenopathy Fatty liver. Right thyroid nodule. I personally reviewed the images as well as with the patient which show 3 stable subcentimeter nodules, persistent mediastinal and hilar adenopathy but not pathologically enlarged. Right thyroid nodule noted. PAST MEDICAL HISTORY Diagnosis Date - Allergies Immunotherapy - Elevated PSA - Hypercholesteremia - Hyperlipidemia - Lung nodules - Prostate cancer (HCC) 09/[address] Florence ALLERGIES Allergen Reactions - Niacin Rash - Rosuvastatin Unknown - Sulfamethoxazole Rash - Trimethoprim Rash atenolol (TENORMIN) 25 mg tablet Take 25 mg by mouth once daily. fenofibrate (LOFIBRA) 134 mg capsule Take 134 mg by mouth once daily. HYDROcodone-acetaminophen (NORCO) 5-325 mg per tablet Acetaminophen / HYDROcodone Hydrocodone/Acetaminophen Active 1 EA EVERY 6 HOURS NEEDED 14 October 13, 2019 7:42am 10-13-2019 [facility] ([id number]) mometasone (ELOCON) 0.1 % cream Mometasone Mometasone Furoate Active 15 GM NEEDED October 05, 2019 8:55am 10-05-2019 [facility] ([id number]) simvastatin (ZOCOR) 40 mg tablet Take 40 mg by mouth daily at bedtime. Social History Tobacco Use - Smoking status: Never Smoker - Smokeless tobacco: Never Used Vaping Use - Vaping Use: Never used Substance Use Topics - Alcohol use: Never - Drug use: Never PMH, Social history, family history and surgical history reviewed and updated in EMR REVIEW OF SYSTEMS: CONSTITUTIONAL: No fevers, chills, nightsweats, unintended weight loss HEENT: Denies headaches. Positive nasal congestion/sinus symptoms,allergy problems. No dysphagia EYES: No diplopia or blurry vision. CARDIOVASCULAR: No chest pain, dyspnea, palpitations, orthopnea, PND, edema. PULM: See HPI GI: No dysphagia/odynophagia, problematic reflux, constipation, diarrhea, changes in stool habits. : History of prostate cancer NEURO: No new rich (more content not included)...[facility] 05-08-2021 NoteHNO ID: [id number] Author: Sidra Guerrero Service: ? Author Type: Area Cleaner Type: Progress Notes Filed: 05/08/2021 10:04 AM Note Text: Radiology Service Progress Note DATE OF SERVICE: May 08, 2021 TIME: 10:03 AM PATIENT IDENTITY VERIFICATION COMPLETED USING TWO (2) STANDARD IDENTIFIERS: Name and Date of confirmed by patient verbally. FALL SCREENING: Has the patient had 2 falls in the last year or 1 fall with injury or currently using an Ambulatory Assistive Device (Walker, Cane, Wheelchair, Crutches, etc.)? No PATIENT GENDER DATA: Male PATIENT RELEVANT IMPLANT DATA REVIEWED: Yes ALLERGIES: Reviewed and unchanged CONTRAST ALLERGY: NO. EXAM: CT -CONTRAST INDUCED NEPHROPATHY RISK FACTORS: Patient age > 60 years CREATININE: Creatinine Date Value Ref Range Status 05/08/2021 1.07 0.73 - 1.22 mg/dL Final 12/29/2020 1.15 0.73 - 1.22 mg/dL Final 05/11/2020 1.14 0.73 - 1.22 mg/dL Final eGFR-All Other Races Date Value Ref Range Status 05/08/2021 >60 . Final Comment: eGFR (Estimated GFR) Units of measure: mL/min/1.73 meters squared eGFR is derived from the reexpressed MDRD Study equation using the following parameters: serum creatinine, age, gender and race. The creatinine assay has been calibrated to be traceable to IDMS. An eGFR <60 mL/min/1.73m2 for >3 months is consistent with chronic kidney disease. Refer to KDOQI guidelines for clinical interpretation. In patients with unstable renal function, e.g. those with acute kidney injury, the eGFR may not accurately reflect actual GFR. eGFR- Date Value Ref Range Status 05/08/2021 >60 Final P.O.C.T. RESULTS: POC done: Yes, See Lab Tab May 08, 2021 TREATMENT: N/A PERIPHERAL IV DATA: Ambulatory: A peripheral IV was started in the Left antecubital site with a Angio cath: 22 gauge. RADIOLOGY DEPARTMENT: CT; Exam(s) Completed: Chest SIGNATURE: Sidra Isabel PATIENT NAME: Jose Guadalupe Nguyen DATE: May 08, 2021 TIME: 10:03 [facility]03-11-2021 NoteHNO ID: [id number] Author: oRse Neves Service: ? Author Type: Physician Type: Progress Notes Filed: 01/04/2021 6:12 PM Note Text: . Respiratory Long Key Note Patient name: Jose Guadalupe Nguyen PCP: SUKHDEV Kramer Referring Physician: Marcy Kidd Consultation requested by Dr. Kidd for an opinion regarding lung nodules and lymph nodes. My final recommendations will be communicated back to the requesting physician by way of shared Medical record or letter to requesting physician via US mail. CC: lymph nodes enlarged HPI: Jose Guadalupe Nguyen 60 year old male never smoker with past medical history significant for prostate cancer, hyperlipidemia who was discovered to have several incidental lower lobe lung nodules found on abdominal CT obtained in April of last year as part of an evaluation of abdominal pain. Follow-up chest CT showed stable nodules but mention of multiple hilar and mediastinal lymph nodes. His abdominal CT did not show lymph nodes due to the level of imaging into his chest. His nodules are stable on repeat CT. Lymphadenopathy could have been present when he had his abdominal CT but images were excluded from view. Prostate cancer was treated with resection. He did not require radiation therapy. Patient states that his last PSA level was normal. He has no prior history of pneumonia. 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 He has no respiratory symptoms. Specifically: cough, sputum production, wheezing, chest pain, fevers, chills, night sweats, weight loss. No history of tuberculosis or exposure to tuberculosis. DATA: Imaging / Diagnostic Studies: DATE OF EXAM: Dec ?2020 10:29AM ? [facility] ? 0539 ?- ?CT CHEST W IVCON ?/ PROCEDURE REASON: Lung nodules EXAMINATION: ?CHEST CT WITH CONTRAST CLINICAL HISTORY: Lung nodule(s) Comparison: CT abdomen pelvis 05/11/2020 which showed lung nodules RESULT: Limitations: ?None. Lines, tubes, and devices: ?None. Lung parenchyma and airways: * ?There is a 3-4 mm noncalcified nodule RIGHT lower lobe image 130. ? This is unchanged * ?There is also a 5 mm noncalcified nodule noted anteriorly in the RIGHT lower lobe image 148 which is unchanged Pleural space: ?No pleural effusion. ?No pleural thickening. Lower neck, lymph nodes, and mediastinum: ?The imaged thyroid gland is normal. ?Several subcentimeter lymph nodes in the mediastinum and hilar regions No enlarged nodes in the supraclavicular, axillary, mediastinal, or hilar regions. Heart, pericardium, and thoracic vessels: ?The thoracic aorta and main pulmonary artery are normal in caliber. The cardiac chambers are normal in size. No coronary artery atherosclerotic calcifications are noted, although the study is not optimized for coronary assessment. No pericardial effusion or thickening. Bones and soft tissues: ?No destructive bone lesion. Chest wall is unremarkable. Upper abdomen: ?Fatty liver IMPRESSION: 1. ?The 2 5 mm noncalcified nodules in the RIGHT lower lobe are unchanged. 2. ?No new nodules are seen 3. ?Multiple subcentimeter lymph nodes throughout the mediastinum and hilar regions Recommendation: These are stable after approximately 8 months from last exam. Incidental Finding: ?Follow-up Acuity: Incidental Findings: Solid: 6-8 mm (multiple nodules) Routing Code: ?RI_1 Recommendation: CT Chest WO IVCON Time Frame: 3-6 months Comments: If stable on follow-up imaging, a repeat chest CT exam in 12 months (15 - 18 months from the initial exam) is recommended. I reviewed the images of his Abd CT and chest CT with the patient and agree with the above assessment. Lymph nodes not seen on Abd CT since slices into chest not high enough into chest. PAST MEDICAL HISTORY Diagnosis Date - Allergies Immunotherapy - Elevated PSA - Hypercholesteremia - Hyperlipidemia - Prostate cancer (HCC) 09/[address] Florence ALLERGIES Allergen Reactions - Niacin Rash - Rosuvastatin Unknown - Sulfamethoxazole Rash - Trimethoprim Rash atenolol (TENORMIN) 25 mg tablet Take 25 mg by mouth once daily. fenofibrate (LOFIBRA) 134 mg capsule Take 134 mg by mouth once daily. mometasone (ELOCON) 0.1 % cream Mometasone Mometasone Furoate Active 15 GM NEEDED October 05, 2019 8:55am 10-05-2019 [facility] ([id number]) simvastatin (ZOCOR) 40 mg tablet Take 40 mg by mouth daily at bedtime. iv contrast (will be provided with radiology test) CT Chest W -Inject, intravenously, once for 1 dose.No IV access, insert saline lock prior to the beginning of sedation, infusion, injection of imaging exam. Discontinue saline lock post exam. If Pt. has a central line or IVAD, may access for administration according to line specific nursing protocol. Once exam is complete flush line and de-access according to line specific nursing protocol i (more content not included)...[facility] 12-29-2020 NoteHNO ID: [id number] Author: Sidra Guerrero (Tech) Service: ? Author Type: Area Cleaner Type: Progress Notes Filed: 12/29/2020 11:29 AM Note Text: Radiology Service Progress Note DATE OF SERVICE: December 29, 2020 TIME: 11:28 AM PATIENT IDENTITY VERIFICATION COMPLETED USING TWO (2) STANDARD IDENTIFIERS: Name and Date of confirmed by patient verbally. FALL SCREENING: Has the patient had 2 falls in the last year or 1 fall with injury or currently using an Ambulatory Assistive Device (Walker, Cane, Wheelchair, Crutches, etc.)? No PATIENT GENDER DATA: Male PATIENT RELEVANT IMPLANT DATA REVIEWED: Yes ALLERGIES: Reviewed and unchanged CONTRAST ALLERGY: NO. EXAM: CT -CONTRAST INDUCED NEPHROPATHY RISK FACTORS: Patient age > 60 years CREATININE: Creatinine Date Value Ref Range Status 12/29/2020 1.15 0.73 - 1.22 mg/dL Final 05/11/2020 1.14 0.73 - 1.22 mg/dL Final eGFR-All Other Races Date Value Ref Range Status 12/29/2020 >60 . Final Comment: eGFR (Estimated GFR) Units of measure: mL/min/1.73 meters squared eGFR is derived from the reexpressed MDRD Study equation using the following parameters: serum creatinine, age, gender and race. The creatinine assay has been calibrated to be traceable to IDMS. An eGFR <60 mL/min/1.73m2 for >3 months is consistent with chronic kidney disease. Refer to KDOQI guidelines for clinical interpretation. In patients with unstable renal function, e.g. those with acute kidney injury, the eGFR may not accurately reflect actual GFR. eGFR- Date Value Ref Range Status 12/29/2020 >60 Final P.O.C.T. RESULTS: POC done: Yes, See Lab Tab December 29, 2020 TREATMENT: N/A PERIPHERAL IV DATA: Ambulatory: A peripheral IV was started in the Left antecubital site with a Angio cath: 22 gauge. RADIOLOGY DEPARTMENT: CT; Exam(s) Completed: Chest SIGNATURE: Sidra Isabel PATIENT NAME: Jose Guadalupe Nguyen DATE: December 29, 2020 [facility] 11[facility]28 [facility] Appointment Date:01/21/2022 08:20:00 AM Scheduled Provider:MOSHE JACKSON APRN, CNP Location:[facility] Appointment Type:PC OV Follow Up Future Scheduled Tests Laboratory* Complete Blood Count 02/01/21 * Lipid Profile 02/01/21 * Complete Metabolic Panel 02/01/21 [facility] Evaluation + Plan note Future Appointments Appointment Date:07/25/2022 08:20:00 AM Scheduled Provider:MOSHE JACKSON APRN, CNP Location:[facility] Appointment Type:PC OV Follow Up Future Scheduled Tests Laboratory* A1C Hemoglobin 07/24/22 * Complete Blood Count 02/01/21 * Complete Blood Count 07/24/22 * Lipid Profile 02/01/21 * Lipid Profile 07/24/22 * Microalbumin Level Urine 07/24/22 * Vitamin D Level 07/24/22 * Complete Metabolic Panel 02/01/21 * Complete Metabolic Panel 07/24/22 Radiology* XR Clavicle Left 01/21/22 * XR Clavicle Right 01/21/22 [facility] Evaluation + Plan note Future Appointments Appointment Date:07/25/2022 08:20:00 AM Scheduled Provider:MOSHE JACKSON GLUING MACHINE OFFBEARER - RANGE OPERATOR Location:[facility] Appointment Type:PC OV Follow Up Future Scheduled Tests Radiology* XR Clavicle Left 01/21/22 * XR Clavicle Right 01/21/22 [facility] Evaluation + Plan note Future Appointments Appointment Date:01/23/2023 08:00:00 AM Scheduled Provider:MOSHE JACKSON GLUING MACHINE OFFBEARER - RANGE OPERATOR Location:[facility] Appointment Type:PC OV Diagnostic Tests Pending * Renin, Plasma 01/14/23 Future Scheduled Tests Radiology* XR Clavicle Left 01/21/22 * XR Clavicle Right 01/21/22 [facility] Hospital course Narrative No data available for this section [facility] Hospital Discharge instructions No data available for this section [facility] Progress note No data available for this section [facility] Summary Purpose Family History No Family History Records FoundNo Family History Records FoundNo Family History Records Found Advance Directives No Advanced Directives Records FoundNo Advanced Directives Records FoundNo Advanced Directives Records Found Additional Source Comments (unrecognized sect ion and content) No Status Records FoundNo Status Records FoundNo Status Records Found INFORMATION SOURCE (unrecogn ized section and content) DATE CREATED AUTHOR AUTHOR'S ORGANIZ ATION 12/16/2021 [facility] DATE CREATED AUTHOR AUTHOR'S ORGANIZ ATION 05/14/2023 [facility] ([place]) Care Team (unrecognized sect ion and content) Care Team Personnel Name: MOSHE JACKSON GLUING MACHINE OFFBEARER - RANGE OPERATOR Position: P4 Advanced Practice Nurse Med Service: Employed Provider Member Role: Primary Care Physician Address: Address: [address] [place] [address] Care Team Related Persons Name: JAVON NGUYEN Address: Home [address] [place], [place] [id number] Patient Care team informatio n (unrecognized section and content) Care Team Personnel Name: MOSHE JACKSON GLUING MACHINE OFFBEARER - RANGE OPERATOR Position: P4 Advanced Glass Novelty Maker Member Role: Primary Care Physician Address: Address: [address] [place] [address] Care Team Related Persons Name: JAVON NGUYEN Address: Home [address] [place], [place] [id number] Care Team Personnel Name: MOSHE JACKSON GLUING MACHINE OFFBEARER - RANGE OPERATOR Position: P4 Advanced Glass Novelty Maker Member Role: Primary Care Physician Address: Address: [address] [place] [address] Care Team Related Persons Name: JAVON NGUYEN Address: [address] [place], [place] [id number] FOR RECORDS PERTAINING TO PATIENTS WHO ARE OR HAVE BEEN ENROLLED IN A CHEMICAL DEPENDENCY/SUBSTANCEABUSE PROGRAM, SOME INFORMATION MAY BE OMITTED. This clinical summary was aggregated from multiple sources. Caution should be exercised in using it in the provision of clinical care. This summary normalizes information from multiple sources, and as a consequence, information in this document may materially change the coding, format and clinical context of patient data. In addition, data may be omitted in some cases. CLINICAL DECISIONS SHOULD BE BASED ON THE PRIMARY CLINICAL RECORDS. [facility]. provides no warranty or guarantee of the accuracy or completeness of information in this document.
[2023-12-10 09:34] LABS: PSA,Total- Diagnostic 0.05 ng/mL (0.0-4.0)
== END | disposition home or self-care (01) ==
PROVIDERS: PCP Nurse Practitioner Family; Referring Provider Nurse Practitioner; Visit Provider Nurse Practitioner
DX: C61 Malignant neoplasm of prostate (principal)
CPT/HCPCS: 36415; 84153

== ENCOUNTER → 2024-09-07 | Outpatient (CLI) | payer OTHER, SELFPAY ==
[2024-09-07 07:31] LABS: PSA,Total- Diagnostic 0.08 ng/mL (0.0-4.0)
== END | disposition home or self-care (01) ==
PROVIDERS: PCP Nurse Practitioner Family; Referring Provider Nurse Practitioner; Visit Provider Nurse Practitioner
DX: C61 Malignant neoplasm of prostate (principal)
CPT/HCPCS: 36415; 84153

== ENCOUNTER → 2025-06-08 | Outpatient (CLI) | payer OTHER, SELFPAY ==
--- OUTSIDE RECORDS SUMMARY | 2025-06-08 06:04 | XMS RPT_ITS | CCD ---
Author Organization [facility] Care Team Providers Care Hazardous Materials Analyst Name Role Phone GAYATRI JORGE DO Unavailable Unavailable GAYATRI JORGE DO Unavailable Unavailable GAYATRI JORGE DO Unavailable Unavailable MOSHE GRAHAM Unavailable Unavailable SANTOSMOSHE RUSHING Unavailable Unavailable PROVIDER, UNKNOWN Unavailable Unavailable SANTOS AIRSET MOLDER - JOINT SUPERVISOR, MOSHE Peres Primary Care Phys ician SANTOS AIRSET MOLDER - JOINT SUPERVISORMOSHE Primary Care U navailable SUPPAN DPMZEUS Attending Unavailable SANTOS AIRSET MOLDER - JOINT SUPERVISOR, MOSHE Peres Attending U navailable SANTOS AIRSET MOLDER - JOINT SUPERVISOR, MOSHE Peres Primary Care U navailable SANTOS AIRSET MOLDER - JOINT SUPERVISOR, MOSHE Peres Attending U navailable SANTOS AIRSET MOLDER - JOINT SUPERVISOR, MOSHE Peres Primary Care U navailable SANTOS AIRSET MOLDER - JOINT SUPERVISOR, MOSHE Peres Primary Care U navailable SANTOS AIRSET MOLDER - JOINT SUPERVISOR, MOSHE Peres Attending U navailable SUPPAN DPMZEUS Attending Unavailable SANTOS AIRSET MOLDER - JOINT SUPERVISOR, MOSHE Peres Primary Care U navailable TurnerRaysa Attending Unavailable Santos CONCIERGE MANAGER, Moshe Sanchez Primary Care Unav ailable Turner, Raysa Referring Unavailable Cavalier CONCIERGE MANAGER, Moshe Sanchez Primary Care Unav ailable Turner, Raysa Referring Unavailable TurnerRaysa Attending Unavailable SANTOS AIRSET MOLDER - JOINT SUPERVISORMOSHE Attending U navailable SANTOS AIRSET MOLDER - JOINT SUPERVISOR, MOSHE Peres Primary Care U navailable SANTOS AIRSET MOLDER - JOINT SUPERVISOR, MOSHE Peres Attending U navailable SANTOS AIRSET MOLDER - JOINT SUPERVISOR, MOSHE Peres Primary Care U navailable Allergies Allergy Classification Reported Allergen(s) Allergy Type Date of Onset Reaction(s) Facility (1 source) rosuvastatin Drug Allergy [facility] Repository (12 sources) Niacin; Translations: [niacin] Drug Allergy 9 Abdominal pain (finding), Syncope (disorder), Eruption of skin (disorder) [facility] (12 sources) rosuvastatin; Translations: [rosuvastatin] Drug Allergy 9 Muscle pain (finding) [facility] (7 sources) Sulfamethoxazole / Trimethoprim; Translations: [sulfamethoxazole-tr imethoprim] Drug Allergy Itching (finding), Eruption of skin (disorder) [facility] (5 sources) Sulfamethoxazole Drug Allergy 9 [facility] (5 sources) Trimethoprim Drug Allergy 9 [facility] (1 source) Niacin Drug Allergy 9 [facility] Repository (1 source) rosuvastatin Drug Allergy 9 [facility] Repository (1 source) Sulfamethoxazole Drug Allergy 9 [facility] Repository (1 source) Trimethoprim Drug Allergy 9 [facility] Repository Medications Current Medications Medication Drug Class(es) Dates Sig (Normalized) Sig (Original) amoxicillin 875 mg / clavulanate 125 mg oral tablet (1 source) Penicillin-class Antibacterial Start: 01-16-2024 End: 01-23-2024 take 1 tablet by mouth every twelve hours amoxicillin-clav ulanate 875 mg-125 mg oral tablet 1 tab(s), Oral, q12h, X 7 day(s), # 14 tab(s), 0 Refill(s), 01/23/24 7:18:00 AM EDT, Pharmacy: [facility], Acute bacterial sinusitis, 183.3, cm, 01/16/24 7:00:00 EDT, Height, 107.2, kg, 01/16/24 7:00:00 EDT, Dosing Weight Start Date: 01/16/24 Stop Date: 01/23/24 Status: Ordered atenolol 25 mg oral tablet (12 sources) beta-Adrenergic Ethan Start: 01-27-2024 End: 07-25-2024 atenolol 25 mg oral tablet Dose : 25 mg = 1 tab(s), Oral, qDay, # 90 tab(s), 1 Refill(s), Pharmacy: [facility], HTN, goal below 140/90, 183, cm, 01/27/24 6:56:00 EDT, Height, kg, 01/27/24 6:56:00 EDT, Dosing Weight Start Date: 01/27/24 Stop Date: 07/25/24 Status: Ordered Start: 10-05-2019 End: 01-18-2024 atenolol 25 mg oral tablet D ose : 25 mg = 1 tab(s), Oral, qDay, # 90 tab(s), 1 Refill(s), Pharmacy: [facility], HTN, goal below 140/90, 182.5, cm, 07/22/23 7:55:00 EDT, Height, kg, 07/22/23 7:55:00 EDT, Dosing Weight Start Date: 07/22/23 Stop Date: 01/18/24 Status: Ordered cholecalciferol 1.25 mg oral capsule (7 sources) Vitamin D Start: 01-27-2024 End: 07-25-2024 cholecalciferol 1250 mcg (50,000 intl units) oral capsule Dose : 50,000 International_Unit = 1 cap(s), Oral, every other week, # 7 cap(s), 1 Refill(s), Pharmacy: [facility], Vitamin D deficiency, 183, cm, 01/27/24 6:56:00 EDT, Height, kg, 01/27/24 6:56:00 EDT, Dosing Weight Start Date: 01/27/24 Stop Date: 07/25/24 Status: Ordered Start: 07-22-2023 End: 01-18-2024 cholecalciferol 1250 mcg (50 ,000 intl units) oral capsule Dose : 50,000 International_Unit = 1 cap(s), Oral, every other week, # 7 cap(s), 1 Refill(s), Pharmacy: [facility], Vitamin D deficiency, 182.5, cm, 07/22/23 7:55:00 EDT, Height, kg, 07/22/23 7:55:00 EDT, Dosing Weight Start Date: 07/22/23 Stop Date: 01/18/24 Status: Ordered Start: 01-23-2023 End: 07-22-2023 cholecalciferol 1250 mcg (50 ,000 intl units) oral capsule Dose : 50,000 International_Unit = 1 cap(s), Oral, qWeek, # 13 cap(s), 1 Refill(s), Pharmacy: [facility], Vitamin D deficiency, 182.9, cm, 01/23/23 8:05:00 EDT, Height, kg, 01/23/23 8:05:00 EDT, Dosing Weight Start Date: 01/23/23 Stop Date: 07/22/23 Status: Ordered Start: 07-25-2022 End: 01-21-2023 cholecalciferol 1250 mcg (50 ,000 intl units) oral capsule Dose : 50,000 International_Unit = 1 cap(s), Oral, qWeek, # 13 cap(s), 1 Refill(s), Pharmacy: [facility], Vitamin D deficiency, 183, cm, 07/25/22 8:27:00 EDT, Height, kg, 07/25/22 8:27:00 EDT, Dosing Weight Start Date: 07/25/22 Stop Date: 01/21/23 Status: Ordered Start: 01-21-2022 End: 07-20-2022 cholecalciferol 1250 mcg (50 ,000 intl units) oral capsule Dose : 50,000 International_Unit = 1 cap(s), Oral, qWeek, # 13 cap(s), 1 Refill(s), Pharmacy: [facility], Vitamin D deficiency, 183, cm, 01/21/22 8:20:00 EDT, Height, kg, 01/21/22 8:20:00 EDT, Dosing Weight Start Date: 01/21/22 Stop Date: 07/20/22 Status: Ordered Start: 01-21-2022 End: 07-20-2022 cholecalciferol 1250 mcg (50 ,000 intl units) oral capsule Dose : 50,000 International_Unit = 1 cap(s), Oral, qWeek, # 13 cap(s), 1 Refill(s), Pharmacy: [facility], Vitamin D deficiency, 183, cm, 01/21/22 8:20:00 EDT, Height, kg, 01/21/22 8:20:00 EDT, Dosing Weight Start Date: 01/21/22 Stop Date: 07/20/22 Status: Ordered Start: 08-07-2021 End: 05-04-2022 cholecalciferol 1250 mcg (50 ,000 intl units) oral capsule Dose : 50,000 International_Unit = 1 cap(s), Oral, qWeek, # 13 cap(s), 2 Refill(s), Pharmacy: [facility], Vitamin D deficiency, 183, cm, 08/07/21 8:04:00 EDT, Height, kg, 08/07/21 8:04:00 EDT, Dosing Weight Start Date: 08/07/21 Stop Date: 05/04/22 Status: Ordered ciprofloxacin 500 mg oral tablet (5 sources) Quinolone Antimicrobial Start: 10-13-2019 take 500 mg by mouth twice daily Ciprofloxacin Hcl Active 500 MG PO TWICE A DAY October 13, 2019 12:00am docusate sodium 100 mg oral capsule (5 sources) Start: 10-13-2019 take 100 mg by mouth twice daily Docusate Sodium Active 100 MG PO TWICE A DAY October 13, 2019 12:00am doxazosin 4 mg oral tablet (5 sources) alpha-Adrenergic Ethan Start: 10-05-2019 take 4 mg by mouth at bedtime Doxazosin Active 4 MG PO AT BEDTIME October 05, 2019 12:00am fenofibrate 134 mg oral capsule (12 sources) Peroxisome Proliferator Receptor alpha Agonist Start: 01-27-2024 End: 07-25-2024 fenofibrate 134 mg oral capsule Dose : 134 mg = 1 cap(s), Oral, qDay, # 90 cap(s), 1 Refill(s), Pharmacy: [facility], Hyperlipidemia, 183, cm, 01/27/24 6:56:00 EDT, Height, kg, 01/27/24 6:56:00 EDT, Dosing Weight Start Date: 01/27/24 Stop Date: 07/25/24 Status: Ordered Start: 01-23-2023 End: 01-18-2024 fenofibrate 134 mg oral caps ule Dose : 134 mg = 1 cap(s), Oral, qDay, # 90 cap(s), 1 Refill(s), Pharmacy: [facility], Hyperlipidemia, 182.5, cm, 07/22/23 7:55:00 EDT, Height, kg, 07/22/23 7:55:00 EDT, Dosing Weight Start Date: 07/22/23 Stop Date: 01/18/24 Status: Ordered Start: 07-25-2022 End: 01-21-2023 fenofibrate 134 mg oral caps ule Dose : 134 mg = 1 cap(s), Oral, qDay, # 90 cap(s), 1 Refill(s), Pharmacy: [facility], Hyperlipidemia, 183, cm, 07/25/22 8:27:00 EDT, Height, kg, 07/25/22 8:27:00 EDT, Dosing Weight Start Date: 07/25/22 Stop Date: 01/21/23 Status: Ordered Start: 08-07-2021 End: 07-20-2022 fenofibrate 134 mg oral caps ule Dose : 134 mg = 1 cap(s), Oral, qDay, # 90 cap(s), 1 Refill(s), Pharmacy: [facility], Hyperlipidemia, 183, cm, 01/21/22 8:20:00 EDT, Height, kg, 01/21/22 8:20:00 EDT, Dosing Weight Start Date: 01/21/22 Stop Date: 07/20/22 Status: Ordered Start: 10-05-2019 take 134 mg by mouth once daily Fenofibrate Active 134 MG PO DAILY October 05, 2019 12:00am mometasone furoate 1 mg/ml topical cream (14 sources) Corticosteroid Start: 01-27-2024 End: 07-25-2024 mometasone 0.1% topical cream Apply 1 jazmyn, Topical, qDay, PRN Skin irritation, # 30 gram(s), 5 Refill(s), Pharmacy: [facility], Cream, 183, cm, 01/27/24 6:56:00 EDT, Height, 104, kg, 01/27/24 6:56:00 EDT, Dosing Weight Start Date: 01/27/24 Stop Date: 07/25/24 Status: Ordered Start: 10-05-2019 Mometasone Act jimmy 15 GM TP NEEDED October 05, 2019 12:00am Start: 08-02-2019 mometasone 0.1 % topical cream Apply 1 jazmyn, Topical, qDay, PRN Skin irritation, # 15 gram(s), 0 Refill(s), Cream, 104.4 Start Date: 01/23/23 Status: Ordered Start: 08-02-2019 Elocon 0.1% to pical cream Apply 1 jazmyn, Topical, Daily, 0 Refill(s) Start Date: 08/02/19 Status: Ordered simvastatin 40 mg oral tablet (12 sources) HMG-CoA Reductase Inhibitor Start: 01-27-2024 End: 07-25-2024 simvastatin 40 mg oral tablet Dose : 40 mg = 1 tab(s), Oral, qHS, # 90 tab(s), 1 Refill(s), Pharmacy: [facility], Hyperlipidemia, 183, cm, 01/27/24 6:56:00 EDT, Height, kg, 01/27/24 6:56:00 EDT, Dosing Weight Start Date: 01/27/24 Stop Date: 07/25/24 Status: Ordered Start: 10-05-2019 End: 01-18-2024 simvastatin 40 mg oral table t Dose : 40 mg = 1 tab(s), Oral, qHS, # 90 tab(s), 1 Refill(s), Pharmacy: [facility], Hyperlipidemia, 182.5, cm, 07/22/23 7:55:00 EDT, Height, kg, 07/22/23 7:55:00 EDT, Dosing Weight Start Date: 07/22/23 Stop Date: 01/18/24 Status: Ordered Completed/Discontinued Medications Medication Drug Class(es) Dates Sig (Normalized) Sig (Original) acetaminophen 325 mg / HYDROcodone bitartrate 5 mg oral tablet (5 sources) Opioid Agonist Start: 10-13-2019 End: 10-18-2019 Hydrocodone-Acetamin ophen Discontinued 1 EACH PO EVERY 6 HOURS NEEDED 14 5 October 13, 2019 October 18, 2019 12:08am triamcinolone acetonide 1 mg/ml topical cream (4 sources) Corticosteroid Start: 08-02-2019 End: 08-15-2019 triamcinolone 0.1% topical cream Apply 1 jazmyn, Topical, BID, # 60 gram(s), 0 Refill(s), Cream Start Date: 08/02/19 Stop Date: 08/15/19 Status: Ordered Start: 08-02-2019 End: 08-15-2019 triamcinolone 0.1% topical c ream Apply 1 jazmyn, Topical, BID, # 60 gram(s), 0 Refill(s), Cream Start Date: 08/02/19 Stop Date: 08/15/19 Status: Ordered Problems Active Problems Problem Classification Problem Date Documented Date Episodic/Chronic Cancer of prostate (8 sources) Malignant tumor of prostate; Translations: [Malignant neoplasm of prostate] Onset: 10-06-2024 08-02-2019 Chronic Chronic kidney disease (7 sources) Chronic kidney disease stage 3 02-01-2021 Chronic Diabetes mellitus without complication (7 sources) Impaired fasting glycemia 02-01-2020 Episodic Disorders of lipid metabolism (12 sources) Hyperlipidemia; Translations: [Hypercholesterolemia ] 02-01-2020 Chronic Essential hypertension (12 sources) Hypertensive disorder; Translations: [Essential (primary) hypertension] 07-30-2019 Chronic Hyperplasia of prostate (12 sources) Benign prostatic hyperplasia; Translations: [Benign prostatic hypertrophy with outflow obstruction] 07-30-2019 Chronic Nutritional deficiencies (7 sources) Vitamin D deficiency 08-07-2021 Chronic Osteoarthritis (7 sources) Osteoarthritis 07-30-2019 Chronic Other connective tissue disease (5 sources) Bone finding 01-22-2022 Episodic Other connective tissue disease (2 sources) Foot pain 01-23-2023 Episodic Other diseases of kidney and ureters (6 sources) Renal impairment 02-01-2020 Episodic Other screening for suspected conditions (not mental disorders or infectious disease) (7 sources) Raised prostate specific antigen 07-30-2019 Episodic Other upper respiratory disease (7 sources) Seasonal allergy 02-01-2020 Chronic Other upper respiratory infections (1 source) Acute bacterial sinusitis 01-16-2024 Episodic Residual codes; unclassified (7 sources) Increased body mass index 02-01-2020 Episodic Rheumatoid arthritis and related disease (7 sources) Rheumatoid arthritis 07-30-2019 Chronic Unclassified (4 sources) Non-smoker 07-25-2022 Past or Other Problems Problem Classification Problem Date Documented Da te Episodic/Chronic Unclassified (5 sources) BPH loc w urin obs/LUTS 01-15-2019 Results Test Name Value Interpretation Reference Range Facility .GFRon 01-20-2025 Estimated Glomerular Filtration Rate 69 ml/min/1.73sqm Normal [facility] Comment on above: Result Comment: Stages of Chronic Kidney Disease (CKD) Stage Description eGFR(ml/min/1.73 sq.m.) CKD 1 Normal kidney function or >=90 normal kindney function with possible kidney damage (ex. Proteinuria) CKD 2 Kidney damage with mild loss 60-89 of kidney function CKD 3a Mild to moderate loss of kidney 45-59 function CKD 3b Moderate to severe loss of 30-44 of kindey function CKD 4 Severe loss of kidney function 15-29 CKD 5 Kidney failure <15 Note: (go live 2024) the eGFR calculation was updated to the 2020 CKD-EPI creatinine equation without a race factor to calculate the eGFR results. Performed By: #### P SA, LIPID, CMP, VIDH, GFR #### [address] [address] CMPon 01-20-2025 Albumin Level 4.3 G/dL Normal 3.4-4.8 [facility] Comment on above: Performed By: #### P SA, LIPID, CMP, VIDH, GFR #### [id number] [place], [place] [address] Albumin/Globulin [Mass ratio] 1.3 {ratio} Normal 1.1-2.5 [facility] Comment on above: Performed By: #### P SA, LIPID, CMP, VIDH, GFR #### [id number] [place], [place] [address] ALP [Catalytic activity/Vol] 59 U/L Normal 40-135 [facility] Comment on above: Performed By: #### P SA, LIPID, CMP, VIDH, GFR #### [id number] [place], [place] [address] ALT [Catalytic activity/Vol] 48 U/L Normal 16-63 [facility] Comment on above: Performed By: #### P SA, LIPID, CMP, VIDH, GFR #### [address] [address] AST [Catalytic activity/Vol] 33 U/L Normal 10-40 [facility] Comment on above: Performed By: #### P SA, LIPID, CMP, VIDH, GFR #### [address] [address] Bili Total 0.8 mg/dL Normal 0.2-1.0 [facility] Comment on above: Result Comment: Use of this assay is not recommended for patients undergoing treatment with eltrombopag due to the potential for falsely elevated results. Performed By: #### P SA, LIPID, CMP, VIDH, GFR #### [address] [address] BUN/Creatinine Ratio 15 ratio Normal 7-27 [facility] Comment on above: Performed By: #### P SA, LIPID, CMP, VIDH, GFR #### [address] [address] Calcium [Mass/Vol] 9.7 mg/dL Normal 8.4-10.2 [facility] Comment on above: Performed By: #### P SA, LIPID, CMP, VIDH, GFR #### [address] [address] Chloride [Moles/Vol] 100 mmol/L Normal 98-107 [facility] Comment on above: Performed By: #### P SA, LIPID, CMP, VIDH, GFR #### [address] [address] CO2 [Moles/Vol] 29 mmol/L Normal 23-31 [facility] Comment on above: Performed By: #### P SA, LIPID, CMP, VIDH, GFR #### [address] [address] Creatinine [Mass/Vol] 1.17 mg/dL Normal 0.70-1.30 [facility] Comment on above: Result Comment: Test ing performed on Siemens Dimension EXL analyzer using a modified kinetic Elvis technique. Performed By: #### P SA, LIPID, CMP, VIDH, GFR #### [id number] Electrolyte Balance 7.0 mEq/L Normal 4.0-15.0 [facility] Comment on above: Performed By: #### P SA, LIPID, CMP, VIDH, GFR #### [id number] Globulin 3.3 G/dL Normal 1.5-3.8 [facility] Comment on above: Performed By: #### P SA, LIPID, CMP, VIDH, GFR #### [place] [address] Glucose [Mass/Vol] 123 mg/dL High 80-115 [facility] Comment on above: Performed By: #### P SA, LIPID, CMP, VIDH, GFR #### [place] [address] Potassium [Moles/Vol] 4.5 mmol/L Normal 3.5-5.1 [facility] Comment on above: Performed By: #### P SA, LIPID, CMP, VIDH, GFR #### [place] [address] Sodium [Moles/Vol] 136 mmol/L Normal 136-145 [facility] Comment on above: Performed By: #### P SA, LIPID, CMP, VIDH, GFR #### [place] [address] Total Protein 7.6 G/dL Normal 6.4-8.2 [facility] Comment on above: Performed By: #### P SA, LIPID, CMP, VIDH, GFR #### [place] [address] Urea nitrogen [Mass/Vol] 17 mg/dL Normal 7-18 [facility] Comment on above: Performed By: #### P SA, LIPID, CMP, VIDH, GFR #### [place] [id number] LIPIDon 01-20-2025 Cholesterol [Mass/Vol] 143 mg/dL Normal 0-200 [facility] Comment on above: Result Comment: Chol esterol Reference Interval: Less than 200 Desirable 200-239 Borderline high risk 240 and above High risk Performed By: #### P SA, LIPID, CMP, VIDH, GFR #### [address] [address] Cholesterol in HDL [Mass/Vol] 42 mg/dL Normal 40-60 [facility] Comment on above: Performed By: #### P SA, LIPID, CMP, VIDH, GFR #### [address] [address] Cholesterol in LDL [Mass/Vol] 89 mg/dL Normal 0-130 [facility] Comment on above: Performed By: #### P SA, LIPID, CMP, VIDH, GFR #### [address] [address] Triglyceride [Mass/Vol] 59 mg/dL Normal 0-150 [facility] Comment on above: Result Comment: Trig lyceride Reference Interval: Less than 150 Normal 150-199 Borderline high risk 200-499 High risk 500 or higher Very high risk Performed By: #### P SA, LIPID, CMP, VIDH, GFR #### [address] [address] MALBRon 01-20-2025 U Creatinine 122.6 mg/dL Normal [facility] Comment on above: Performed By: #### M ALBR #### [address] [address] U Microalb 13.8 mg/L Normal [facility] Comment on above: Performed By: #### M ALBR #### [address] [address] U Ratio Alb/Cre 11 mg/G Normal 0-30 [facility] Comment on above: Performed By: #### M ALBR #### [address] [address] PSAon 01-20-2025 Prostate Specific Antigen 0.10 ng/mL Normal 0.00-4.00 [facility] Comment on above: Performed By: #### P SA, LIPID, CMP, VIDH, GFR #### Heather [address] [address] VIDHon 01-20-2025 Vit. D 25-Hydroxy 81.4 ng/mL Normal [facility] Comment on above: Result Comment: Inte rpretive Values Based on Total 25(OH) Vitamin D: Deficient <20 ng/mL Insufficient 20 - <30 ng/mL Sufficient 30-100 ng/mL Performed By: #### P SA, LIPID, CMP, VIDH, GFR #### [address] [address] PSA,Total- Diagnosticon 08-27 PSA, DIAGNOSTIC 0.08 ng/mL Normal 0.0-4.0 [facility] Comment on above: Result Comment: This test was performed using the TPSA assay method for the [employer] chemistry system. Values obtained with different assay methods cannot be used interchangably. When changing PSA assays in the course of monitoring a patient, additional sequential testing should be carried out to confirm baseline values. Performed By: #### L [id number] #### [facility] [address] [place], [address] RENINon 07-25-2024 Renin Activity 0.389 ng/mL/hr Normal 0.167-5.380 [facility] Comment on above: Result Comment: This test was developed and its performance characteristics determined by [facility]. It has not been cleared or approved by the Food and Drug Administration. Performed At: [address] [id number] Jacob Middleton MD Ph:[phone] Performed By: #### P SA, LIPID, CMP, VIDH, GFR #### [address] [address] RFon 07-22-2024 Rheumatoid Factor <6.0 Normal <=5.9 [facility] Comment on above: Result Comment: RF I gM Antibody by Enzyme Immunoassay: Negative < or = 6 Positive > 6 A positive result indicates the presence of RF antibodies and suggests the possibility of rheumatoid arthritis. A negative result indicates no RF IgM antibody or levels below the negative cut-off of the assay. Results of this assay should be used in conjunction with clinical findings and other serological tests. These results were obtained with the [employer] QUANTA Lite RF IgM ALYSE. RF IgM values obtained with different manufacturers' assay methods may not be used interchangeably. The magnitude of the reported IgM levels cannot be correlated to an endpoint titer. Performed By: #### P SA, LIPID, CMP, VIDH, GFR #### [place] [address] .Auto Diffon 07-20-2024 Basophil, Absolute 0.1 10 3/mcL Normal 0.0-0.2 [facility] Comment on above: Performed By: #### G FR, ADIFF, PSA, A1C, CBC, [id number], VIDH, LIPID, ANEU, CMP #### [place] [address] #### PTH, RF #### [address] [address] Basophils/100 WBC (Bld) 0.9 % Normal 0.0-2.5 [facility] Comment on above: Performed By: #### G FR, ADIFF, PSA, A1C, CBC, 130698, VIDH, LIPID, ANEU, CMP #### [place] [address] #### PTH, RF #### [address] [address] Eosinophil, Absolute 0.2 10 3/mcL Normal 0.0-0.7 [facility] Comment on above: Performed By: #### G FR, ADIFF, PSA, A1C, CBC, [id number], VIDH, LIPID, ANEU, CMP #### [place] [address] #### PTH, RF #### [address] [address] Eosinophils/100 WBC (Bld) 3.0 % Normal 0.0-7.0 [facility] Comment on above: Performed By: #### G FR, ADIFF, PSA, A1C, CBC, 240683, VIDH, LIPID, ANEU, CMP #### [address] [address] #### PTH, RF #### [address] [address] Lymphocyte, Absolute 1.4 10 3/mcL Normal 0.9-4.3 [facility] Comment on above: Performed By: #### G FR, ADIFF, PSA, A1C, CBC, 287698, VIDH, LIPID, ANEU, CMP #### [place] [address] #### PTH, RF #### [address] [address] Lymphocytes/100 WBC (Bld) 19.6 % Low 20.0-40.0 [facility] Comment on above: Performed By: #### G FR, ADIFF, PSA, A1C, CBC, [id number], VIDH, LIPID, ANEU, CMP #### [place] [address] #### PTH, RF #### [address] [address] Monocyte, Absolute 0.8 10 3/mcL Normal 0.1-1.4 [facility] Comment on above: Performed By: #### G FR, ADIFF, PSA, A1C, CBC, [id number], VIDH, LIPID, ANEU, CMP #### [place] [address] #### PTH, RF #### [address] [address] Monocytes/100 WBC (Bld) 11.1 % Normal 2.0-13.0 [facility] Comment on above: Performed By: #### G FR, ADIFF, PSA, A1C, CBC, [id number], VIDH, LIPID, ANEU, CMP #### [place] [address] #### PTH, RF #### [address] [address] Neutrophils/100 WBC (Bld) 65.4 % Normal 50.0-75.0 [facility] Comment on above: Performed By: #### G FR, ADIFF, PSA, A1C, CBC, [id number], VIDH, LIPID, ANEU, CMP #### [address] [place], [place] [address] #### PTH, RF #### [facility] [address] [place] [id number] .GFRon 07-20-2024 GFR Non- 58 ml/min/1.73sqm Normal [facility] Comment on above: Result Comment: GFR Population mean for , Non- Americans Ages 20-29 = 116 mL/min/1.73 sq.m. Ages 30-39 = 107 mL/min/1.73 sq.m. Ages 40-49 = 99 mL/min/1.73 sq.m. Ages 50-59 = 93 mL/min/1.73 sq.m. Ages 60-69 = 85 mL/min/1.73 sq.m. Ages 70+ = 75 mL/min/1.73 sq.m. Chronic Kidney Disease: Less than 60 mL/min/1.73 square meters End Stage Renal Disease: Less than 15 mL/min/1.73 square meters Performed By: #### P SA, LIPID, CMP, VIDH, GFR #### [id number] [place], [place] [address] GFR 70 ml/min/1.73sqm Normal [facility] Comment on above: Result Comment: GFR Population mean for , Non- Americans Ages 20-29 = 116 mL/min/1.73 sq.m. Ages 30-39 = 107 mL/min/1.73 sq.m. Ages 40-49 = 99 mL/min/1.73 sq.m. Ages 50-59 = 93 mL/min/1.73 sq.m. Ages 60-69 = 85 mL/min/1.73 sq.m. Ages 70+ = 75 mL/min/1.73 sq.m. Chronic Kidney Disease: Less than 60 mL/min/1.73 square meters End Stage Renal Disease: Less than 15 mL/min/1.73 square meters Performed By: #### P SA, LIPID, CMP, VIDH, GFR #### [place] [id number] .NEUABSon 07-20-2024 Neutrophil, Absolute 4.6 10 3/mcL Normal 2.3-8.1 [facility] Comment on above: Performed By: #### G FR, ADIFF, PSA, A1C, CBC, [id number], VIDH, LIPID, ANEU, CMP #### [place] [address] #### PTH, RF #### [place] [address] A1Con 07-20-2024 Glucose [Mass/Vol] 134 mg/dL Normal [facility] Comment on above: Result Comment: Yohana mated Average Glucose calculated by equation ((28.7xA1C)-46.7) Estimated average glucose (eAG) is a calculated value from Hemoglobin A1C and is scheduling representative of the average blood glucose level in the last 2-3 month period. Normal range: less than 114 mg/dL Performed By: #### G FR, ADIFF, PSA, A1C, CBC, [id number], VIDH, LIPID, ANEU, CMP #### [place] [address] #### PTH, RF #### [place] [address] HbA1c (Bld) [Mass fraction] 6.3 % Normal 4.3-6.4 [facility] Comment on above: Performed By: #### G FR, ADIFF, PSA, A1C, CBC, [id number], VIDH, LIPID, ANEU, CMP #### [place] [address] #### PTH, RF #### [place] [address] CBCon 07-20-2024 Erythrocyte distribution width (RBC) [Ratio] 12.9 % Normal 11.5-15.5 [facility] Comment on above: Performed By: #### G FR, ADIFF, PSA, A1C, CBC, [id number], VIDH, LIPID, ANEU, CMP #### [place] [address] #### PTH, RF #### [place] [address] Hematocrit (Bld) [Volume fraction] 47.8 % Normal 40.0-52.0 [facility] Comment on above: Performed By: #### G FR, ADIFF, PSA, A1C, CBC, [id number], VIDH, LIPID, ANEU, CMP #### [place] [address] #### PTH, RF #### [place] [address] Hgb 16.9 G/dL Normal 13.0-17.5 [facility] Comment on above: Performed By: #### G FR, ADIFF, PSA, A1C, CBC, [id number], VIDH, LIPID, ANEU, CMP #### [place] [address] #### PTH, RF #### [place] [address] MCH (RBC) [Entitic mass] 32.8 pg Normal 27.0-33.0 [facility] Comment on above: Performed By: #### G FR, ADIFF, PSA, A1C, CBC, [id number], VIDH, LIPID, ANEU, CMP #### [place] [address] #### PTH, RF #### [place] [address] MCHC 35.4 G/dL Normal 32.0-36.0 [facility] Comment on above: Performed By: #### G FR, ADIFF, PSA, A1C, CBC, [id number], VIDH, LIPID, ANEU, CMP #### [place] [address] #### PTH, RF #### [place] [address] MCV (RBC) [Entitic vol] 92.6 fL Normal 81.0-100.0 [facility] Comment on above: Performed By: #### G FR, ADIFF, PSA, A1C, CBC, [id number], VIDH, LIPID, ANEU, CMP #### [address] [address] #### PTH, RF #### [place] [address] Platelet 267 10 3/mcL Normal 150-450 [facility] Comment on above: Performed By: #### G FR, ADIFF, PSA, A1C, CBC, [id number], VIDH, LIPID, ANEU, CMP #### [place] [address] #### PTH, RF #### [place] [address] Platelet mean volume (Bld) [Entitic vol] 7.4 fL Normal 6.4-10.5 [facility] Comment on above: Performed By: #### G FR, ADIFF, PSA, A1C, CBC, [id number], VIDH, LIPID, ANEU, CMP #### [place] [address] #### PTH, RF #### [place] [address] RBC 5.16 10 6/mcL Normal 4.50-6.00 [facility] Comment on above: Performed By: #### G FR, ADIFF, PSA, A1C, CBC, [id number], VIDH, LIPID, ANEU, CMP #### [place] [address] #### PTH, RF #### [place] [address] WBC 7.0 10 3/mcL Normal 4.5-10.8 [facility] Comment on above: Performed By: #### G FR, ADIFF, PSA, A1C, CBC, [id number], VIDH, LIPID, ANEU, CMP #### [place] [address] #### PTH, RF #### [place] [address] CMPon 07-20-2024 Albumin Level 4.2 G/dL Normal 3.4-4.8 [facility] Comment on above: Performed By: #### P SA, LIPID, CMP, VIDH, GFR #### [address] [address] Albumin/Globulin [Mass ratio] 1.4 {ratio} Normal 1.1-2.5 [facility] Comment on above: Performed By: #### P SA, LIPID, CMP, VIDH, GFR #### [address] [address] ALP [Catalytic activity/Vol] 78 U/L Normal 40-135 [facility] Comment on above: Performed By: #### P SA, LIPID, CMP, VIDH, GFR #### [address] [address] ALT [Catalytic activity/Vol] 53 U/L Normal 16-63 [facility] Comment on above: Performed By: #### P SA, LIPID, CMP, VIDH, GFR #### [address] [address] AST [Catalytic activity/Vol] 27 U/L Normal 10-40 [facility] Comment on above: Performed By: #### P SA, LIPID, CMP, VIDH, GFR #### [address] [address] Bili Total 0.6 mg/dL Normal 0.2-1.0 [facility] Comment on above: Result Comment: Use of this assay is not recommended for patients undergoing treatment with eltrombopag due to the potential for falsely elevated results. Performed By: #### P SA, LIPID, CMP, VIDH, GFR #### [address] [address] BUN/Creatinine Ratio 16 ratio Normal 7-27 [facility] Comment on above: Performed By: #### P SA, LIPID, CMP, VIDH, GFR #### [address] [address] Calcium [Mass/Vol] 9.4 mg/dL Normal 8.4-10.2 [facility] Comment on above: Performed By: #### P SA, LIPID, CMP, VIDH, GFR #### [place] [address] Chloride [Moles/Vol] 105 mmol/L Normal 98-107 [facility] Comment on above: Performed By: #### P SA, LIPID, CMP, VIDH, GFR #### [place] [address] CO2 [Moles/Vol] 28 mmol/L Normal 23-31 [facility] Comment on above: Performed By: #### P SA, LIPID, CMP, VIDH, GFR #### [place] [address] Creatinine [Mass/Vol] 1.25 mg/dL Normal 0.70-1.30 [facility] Comment on above: Result Comment: Test ing performed on Siemens Dimension EXL analyzer using a modified kinetic Elvis technique. Performed By: #### P SA, LIPID, CMP, VIDH, GFR #### [place] [address] Electrolyte Balance 5.0 mEq/L Normal 4.0-15.0 [facility] Comment on above: Performed By: #### P SA, LIPID, CMP, VIDH, GFR #### [place] [address] Globulin 2.9 G/dL Normal [facility] Comment on above: Performed By: #### P SA, LIPID, CMP, VIDH, GFR #### [place] [address] Glucose [Mass/Vol] 138 mg/dL High 80-115 [facility] Comment on above: Performed By: #### P SA, LIPID, CMP, VIDH, GFR #### [place] [address] Potassium [Moles/Vol] 4.9 mmol/L Normal 3.5-5.1 [facility] Comment on above: Performed By: #### P SA, LIPID, CMP, VIDH, GFR #### [address] [place], [place] [address] Sodium [Moles/Vol] 138 mmol/L Normal 136-145 [facility] Comment on above: Performed By: #### P SA, LIPID, CMP, VIDH, GFR #### [address] [place], [place] [address] Total Protein 7.1 G/dL Normal 6.4-8.2 [facility] Comment on above: Performed By: #### P SA, LIPID, CMP, VIDH, GFR #### [address] [place], [place] [address] Urea nitrogen [Mass/Vol] 20 mg/dL High 7-18 [facility] Comment on above: Performed By: #### P SA, LIPID, CMP, VIDH, GFR #### [id number] [place], [place] [address] LABORATORYOrdered By: Michael Forman on 07-20-2024 Albumin DL <= 20 mg/L (U) [Mass/Vol] 515 mcg/dL Invalid Interpretation Code AO ADM SS Albumin/Creatinine DL <= 20 mg/L (U) [Mass ratio] 4 mcg/mg Normal 0 - 30 mcg/mg AO ADM SS Creatinine (U) [Mass/Vol] 133.4 mg/dL Normal 39.0 - 259.0 mg/dL AO ADM SS Cholesterol [Mass/Vol] 144 mg/dL Normal 0 - 2 00 mg/dL AO ADM SS Comment on above: Interpretive Data: C holesterol Reference Interval: Less than 200 Desirable 200-239 Borderline high risk 240 and above High risk Cholesterol in HDL [Mass/Vol] 37 mg/dL Low 40 - 60 mg/dL AO ADM SS Cholesterol in LDL [Mass/Vol] 88 mg/dL Normal 0 - 130 mg/dL AO ADM SS Triglyceride [Mass/Vol] 93 mg/dL Normal 0 - 150 mg/dL AO ADM SS Comment on above: Interpretive Data: T riglyceride Reference Interval: Less than 150 Normal 150-199 Borderline high risk 200-499 High risk 500 or higher Very high risk LABORATORYOrdered By: SYSTEM SYSTEM on 07-20-2024 25-hydroxyvitamin D3 [Mass/Vol] 82.2 ng/mL Invalid Interpretation Code AO ADM SS Comment on above: Interpretive Data: I nterpretive Values Based on Total 25(OH) Vitamin D: Deficient <20 ng/mL Insufficient 20 - <30 ng/mL Sufficient 30-100 ng/mL Albumin BCP dye [Mass/Vol] 4.2 G/dL Normal 3.4 - 4.8 G/dL AO ADM SS Albumin/Globulin [Mass ratio] 1.4 {ratio} Normal 1.1 - 2.5 ratio AO ADM SS ALP [Catalytic activity/Vol] 78 U/L Normal 40 - 135 U/L AO ADM SS ALT With P-5'-P [Catalytic activity/Vol] 53 U/L Normal 16 - 63 U/L AO ADM SS AST With P-5'-P [Catalytic activity/Vol] 27 U/L Normal 10 - 40 U/L AO ADM SS Basophils (Bld) [#/Vol] 0.1 103/mcL Normal 0.0 - 0.2 10^3/mcL AO Workflow SS Basophils/100 WBC (Bld) 0.9 % Normal 0.0 - 2.5 % AO Workflow SS Bilirubin [Mass/Vol] 0.6 mg/dL Normal 0.2 - 1 .0 mg/dL AO ADM SS Comment on above: Interpretive Data: U se of this assay is not recommended for patients undergoing treatment with eltrombopag due to the potential for falsely elevated results. Calcium [Mass/Vol] 9.4 mg/dL Normal 8.4 - 10. 2 mg/dL AO ADM SS Chloride [Moles/Vol] 105 mmol/L Normal 98 - 10 7 mmol/L AO ADM SS CO2 [Moles/Vol] 28 mmol/L Normal 23 - 31 mmol/L AO ADM SS Creatinine [Mass/Vol] 1.25 mg/dL Normal 0.70 - 1.30 mg/dL AO ADM SS Comment on above: Interpretive Data: T esting performed on Siemens Dimension EXL analyzer using a modified kinetic Elvis technique. Electrolyte Balance 5.0 mEq/L Normal 4.0 - 15 .0 mEq/L AO ADM SS Eosinophil, Absolute 0.2 103/mcL Normal 0.0 - 0 .7 10^3/mcL AO Workflow SS Eosinophils/100 WBC (Bld) 3.0 % Normal 0.0 - 7.0 % AO Workflow SS Erythrocyte distribution width (RBC) [Ratio] 12.9 % Normal 11.5 - 15.5 % AO Workflow SS GFR/1.73 sq M.predicted among blacks MDRD (S/P/Bld) [Vol rate/Area] 70 ml/min/1.73sqm Invalid Interpretation Code AO Chemistry S Comment on above: Interpretive Data: GFR Population mean for , Non- Americans Ages 20-29 = 116 mL/min/1.73 sq.m. Ages 30-39 = 107 mL/min/1.73 sq.m. Ages 40-49 = 99 mL/min/1.73 sq.m. Ages 50-59 = 93 mL/min/1.73 sq.m. Ages 60-69 = 85 mL/min/1.73 sq.m. Ages 70+ = 75 mL/min/1.73 sq.m. Chronic Kidney Disease: Less than 60 mL/min/1.73 square meters End Stage Renal Disease: Less than 15 mL/min/1.73 square meters GFR/1.73 sq M.predicted among non-blacks MDRD (S/P/Bld) [Vol rate/Area] 58 ml/min/1.73sqm Invalid Interpretation Code AO Chemistry S Comment on above: Interpretive Data: GFR Population mean for , Non- Americans Ages 20-29 = 116 mL/min/1.73 sq.m. Ages 30-39 = 107 mL/min/1.73 sq.m. Ages 40-49 = 99 mL/min/1.73 sq.m. Ages 50-59 = 93 mL/min/1.73 sq.m. Ages 60-69 = 85 mL/min/1.73 sq.m. Ages 70+ = 75 mL/min/1.73 sq.m. Chronic Kidney Disease: Less than 60 mL/min/1.73 square meters End Stage Renal Disease: Less than 15 mL/min/1.73 square meters Globulin 2.9 G/dL Invalid Interpretation Code AO ADM SS Glucose [Mass/Vol] 138 mg/dL High 80 - 115 mg/dL AO ADM SS Glucose [Mass/Vol] 134 mg/dL Invalid Interpretation Code AO Chemistry S Comment on above: Interpretive Data: E stimated average glucose (eAG) is a calculated value from Hemoglobin A1C and is scheduling representative of the average blood glucose level in the last 2-3 month period. Normal range: less than 114 mg/dL HbA1c (Bld) [Mass fraction] 6.3 % Normal 4.3 - 6.4 % AO ADM SS Hematocrit (Bld) [Volume fraction] 47.8 % Normal 40.0 - 52.0 % AO Workflow SS Hemoglobin (Bld) [Mass/Vol] 16.9 G/dL Normal 13.0 - 17.5 G/dL AO Workflow SS Lymphocytes (Bld) [#/Vol] 1.4 103/mcL Normal 0.9 - 4.3 10^3/mcL AO Workflow SS Lymphocytes/100 WBC (Bld) 19.6 % Low 20.0 - 40.0 % AO Workflow SS MCH (RBC) [Entitic mass] 32.8 pg Normal 27.0 - 33.0 pg AO Workflow SS MCHC 35.4 G/dL Normal 32.0 - 36.0 G/dL AO Workflow SS MCV (RBC) [Entitic vol] 92.6 fL Normal 81.0 - 100.0 fL AO Workflow SS Monocytes (Bld) [#/Vol] 0.8 103/mcL Normal 0.1 - 1.4 10^3/mcL AO Workflow SS Monocytes/100 WBC (Bld) 11.1 % Normal 2.0 - 13.0 % AO Workflow SS Neutrophils (Bld) [#/Vol] 4.6 103/mcL Normal 2.3 - 8.1 10^3/mcL AO Workflow SS Neutrophils/100 WBC (Bld) 65.4 % Normal 50.0 - 75.0 % AO Workflow SS Parathyrin.intact [Mass/Vol] 15.3 pg/mL Low 18.5 - 88.0 pg/mL AH ADM SS Platelet mean volume (Bld) [Entitic vol] 7.4 fL Normal 6.4 - 10.5 fL AO Workflow SS Platelets (Bld) [#/Vol] 267 103/mcL Normal 150 - 450 10^3/mcL AO Workflow SS Potassium [Moles/Vol] 4.9 mmol/L Normal 3.5 - 5.1 mmol/L AO ADM SS Prostate specific Ag [Mass/Vol] 0.07 ng/mL Normal 0.00 - 4.00 ng/mL AO ADM SS Protein [Mass/Vol] 7.1 G/dL Normal 6.4 - 8.2 G/dL AO ADM SS RBC (Bld) [#/Vol] 5.16 106/mcL Normal 4.50 - 6.0 0 10^6/mcL AO Workflow SS Sodium [Moles/Vol] 138 mmol/L Normal 136 - 145 mmol/L AO ADM SS Urea nitrogen [Mass/Vol] 20 mg/dL High 7 - 18 mg/dL AO ADM SS Urea nitrogen/Creatinine [Mass ratio] 16 ratio Normal 7 - 27 ratio AO ADM SS WBC (Bld) [#/Vol] 7.0 103/mcL Normal 4.5 - 10.8 10^3/mcL AO Workflow SS LIPIDon 07-20-2024 Cholesterol [Mass/Vol] 144 mg/dL Normal 0-200 [facility] Comment on above: Result Comment: Chol esterol Reference Interval: Less than 200 Desirable 200-239 Borderline high risk 240 and above High risk Performed By: #### P SA, LIPID, CMP, VIDH, GFR #### [address] [address] Cholesterol in HDL [Mass/Vol] 37 mg/dL Low 40-60 [facility] Comment on above: Performed By: #### P SA, LIPID, CMP, VIDH, GFR #### [address] [address] Cholesterol in LDL [Mass/Vol] 88 mg/dL Normal 0-130 [facility] Comment on above: Performed By: #### P SA, LIPID, CMP, VIDH, GFR #### [address] [address] Triglyceride [Mass/Vol] 93 mg/dL Normal 0-150 [facility] Comment on above: Result Comment: Trig lyceride Reference Interval: Less than 150 Normal 150-199 Borderline high risk 200-499 High risk 500 or higher Very high risk Performed By: #### P SA, LIPID, CMP, VIDH, GFR #### [address] [address] MALBRon 07-20-2024 U Creatinine 133.4 mg/dL Normal 39.0-259.0 [facility] Comment on above: Performed By: #### P SA, LIPID, CMP, VIDH, GFR #### [address] [address] U Microalb 515 mcg/dL Normal [facility] Comment on above: Performed By: #### P SA, LIPID, CMP, VIDH, GFR #### [address] [address] U Ratio Alb/Cre 4 mcg/mg Normal 0-30 [facility] Comment on above: Performed By: #### P SA, LIPID, CMP, VIDH, GFR #### [address] [address] PSAon 07-20-2024 Prostate Specific Antigen 0.07 ng/mL Normal 0.00-4.00 [facility] Comment on above: Performed By: #### P SA, LIPID, CMP, VIDH, GFR #### [address] [address] PTHon 07-20-2024 PTH, Intact 15.3 pg/mL Low 18.5-88.0 [facility] Comment on above: Performed By: #### P SA, LIPID, CMP, VIDH, GFR #### [address] [address] VIDHon 07-20-2024 Vit. D 25-Hydroxy 82.2 ng/mL Normal [facility] Comment on above: Result Comment: Inte rpretive Values Based on Total 25(OH) Vitamin D: Deficient <20 ng/mL Insufficient 20 - <30 ng/mL Sufficient 30-100 ng/mL Performed By: #### P SA, LIPID, CMP, VIDH, GFR #### [address] [address] .Auto Diffon 01-21-2024 Basophil, Absolute 0.1 10 3/mcL Normal 0.0-0.2 [facility] ([place]) Comment on above: Performed By: #### C BC, A1C, ADIFF, ANEU, GFR, CMP, VIDH, LIPID #### [address] [address] Basophils/100 WBC (Bld) 1.3 % Normal 0.0-2.5 [facility] ([place]) Comment on above: Performed By: #### C BC, A1C, ADIFF, ANEU, GFR, CMP, VIDH, LIPID #### [address] [address] Eosinophil, Absolute 0.5 10 3/mcL High 0.0-0.4 [facility] ([place]) Comment on above: Performed By: #### C BC, A1C, ADIFF, ANEU, GFR, CMP, VIDH, LIPID #### [address] [address] Eosinophils/100 WBC (Bld) 5.5 % Normal 0.0-7.0 [facility] ([place]) Comment on above: Performed By: #### C BC, A1C, ADIFF, ANEU, GFR, CMP, VIDH, LIPID #### [address] [address] Lymphocyte, Absolute 1.4 10 3/mcL Normal 0.8-3.9 [facility] ([place]) Comment on above: Performed By: #### C BC, A1C, ADIFF, ANEU, GFR, CMP, VIDH, LIPID #### [address] [address] Lymphocytes/100 WBC (Bld) 16.2 % Normal 10.0-50.0 [facility] ([place]) Comment on above: Performed By: #### C BC, A1C, ADIFF, ANEU, GFR, CMP, VIDH, LIPID #### [address] [address] Monocyte, Absolute 1.0 10 3/mcL Normal 0.2-1.0 [facility] ([place]) Comment on above: Performed By: #### C BC, A1C, ADIFF, ANEU, GFR, CMP, VIDH, LIPID #### [address] [address] Monocytes/100 WBC (Bld) 11.4 % Normal 1.7-13.0 [facility] ([place]) Comment on above: Performed By: #### C BC, A1C, ADIFF, ANEU, GFR, CMP, VIDH, LIPID #### [address] [address] Neutrophils/100 WBC (Bld) 65.6 % Normal 37.0-80.0 [facility] ([place]) Comment on above: Performed By: #### C BC, A1C, ADIFF, ANEU, GFR, CMP, VIDH, LIPID #### [address] [address] .GFRon 01-21-2024 GFR 74 ml/min/1.73sqm Normal [facility] ([place]) Comment on above: Result Comment: GFR Population mean for , Non- Americans Ages 20-29 = 116 mL/min/1.73 sq.m. Ages 30-39 = 107 mL/min/1.73 sq.m. Ages 40-49 = 99 mL/min/1.73 sq.m. Ages 50-59 = 93 mL/min/1.73 sq.m. Ages 60-69 = 85 mL/min/1.73 sq.m. Ages 70+ = 75 mL/min/1.73 sq.m. Chronic Kidney Disease: Less than 60 mL/min/1.73 square meters End Stage Renal Disease: Less than 15 mL/min/1.73 square meters Performed By: #### C BC, A1C, ADIFF, ANEU, GFR, CMP, VIDH, LIPID #### [address] [address] GFR Non- 61 ml/min/1.73sqm Normal [facility] ([place]) Comment on above: Result Comment: GFR Population mean for , Non- Americans Ages 20-29 = 116 mL/min/1.73 sq.m. Ages 30-39 = 107 mL/min/1.73 sq.m. Ages 40-49 = 99 mL/min/1.73 sq.m. Ages 50-59 = 93 mL/min/1.73 sq.m. Ages 60-69 = 85 mL/min/1.73 sq.m. Ages 70+ = 75 mL/min/1.73 sq.m. Chronic Kidney Disease: Less than 60 mL/min/1.73 square meters End Stage Renal Disease: Less than 15 mL/min/1.73 square meters Performed By: #### C BC, A1C, ADIFF, ANEU, GFR, CMP, VIDH, LIPID #### [address] [address] .NEUABSon 01-21-2024 Neutrophil, Absolute 5.6 10 3/mcL Normal 2.9-6.2 [facility] ([place]) Comment on above: Performed By: #### C BC, A1C, ADIFF, ANEU, GFR, CMP, VIDH, LIPID #### [place] [id number] A1Con 01-21-2024 HbA1c (Bld) [Mass fraction] 6.5 % High 4.3-6.4 [facility] ([place]) Comment on above: Performed By: #### C BC, A1C, ADIFF, ANEU, GFR, CMP, VIDH, LIPID #### [place] [address] CBCon 01-21-2024 Erythrocyte distribution width (RBC) [Ratio] 12.8 % Normal 11.5-14.5 [facility] ([place]) Comment on above: Performed By: #### C BC, A1C, ADIFF, ANEU, GFR, CMP, VIDH, LIPID #### [place] [id number] Hematocrit (Bld) [Volume fraction] 47.4 % Normal 42.0-52.0 [facility] ([place]) Comment on above: Performed By: #### C BC, A1C, ADIFF, ANEU, GFR, CMP, VIDH, LIPID #### [place] [id number] Hgb 16.7 G/dL Normal 14.0-18.0 [facility] ([place]) Comment on above: Performed By: #### C BC, A1C, ADIFF, ANEU, GFR, CMP, VIDH, LIPID #### [place] [address] MCH (RBC) [Entitic mass] 32.1 pg High 27.0-31.2 [facility] ([place]) Comment on above: Performed By: #### C BC, A1C, ADIFF, ANEU, GFR, CMP, VIDH, LIPID #### [address] [address] MCHC 35.3 G/dL Normal 31.8-35.4 [facility] ([place]) Comment on above: Performed By: #### C BC, A1C, ADIFF, ANEU, GFR, CMP, VIDH, LIPID #### [address] [address] MCV (RBC) [Entitic vol] 90.9 fL Normal 80.0-94.0 [facility] ([place]) Comment on above: Performed By: #### C BC, A1C, ADIFF, ANEU, GFR, CMP, VIDH, LIPID #### [address] [address] Platelet 401 10 3/mcL High 130-400 [facility] ([place]) Comment on above: Performed By: #### C BC, A1C, ADIFF, ANEU, GFR, CMP, VIDH, LIPID #### [address] [address] Platelet mean volume (Bld) [Entitic vol] 6.9 fL Low 7.4-10.4 [facility] ([place]) Comment on above: Performed By: #### C BC, A1C, ADIFF, ANEU, GFR, CMP, VIDH, LIPID #### [place] [id number] RBC 5.22 10 6/mcL Normal 4.04-6.13 [facility] ([place]) Comment on above: Performed By: #### C BC, A1C, ADIFF, ANEU, GFR, CMP, VIDH, LIPID #### [place] [id number] WBC 8.5 10 3/mcL Normal 4.6-10.8 [facility] ([place]) Comment on above: Performed By: #### C BC, A1C, ADIFF, ANEU, GFR, CMP, VIDH, LIPID #### [address] [address] CMPon 01-21-2024 Albumin Level 3.9 G/dL Normal 3.4-4.8 [facility] ([place]) Comment on above: Performed By: #### C BC, A1C, ADIFF, ANEU, GFR, CMP, VIDH, LIPID #### [address] [address] Albumin/Globulin [Mass ratio] 1.1 {ratio} Normal 1.1-2.5 [facility] ([place]) Comment on above: Performed By: #### C BC, A1C, ADIFF, ANEU, GFR, CMP, VIDH, LIPID #### [address] [address] ALP [Catalytic activity/Vol] 58 U/L Normal 40-135 [facility] ([place]) Comment on above: Performed By: #### C BC, A1C, ADIFF, ANEU, GFR, CMP, VIDH, LIPID #### [address] [address] ALT [Catalytic activity/Vol] 45 U/L Normal 16-63 [facility] ([place]) Comment on above: Performed By: #### C BC, A1C, ADIFF, ANEU, GFR, CMP, VIDH, LIPID #### [address] [address] AST [Catalytic activity/Vol] 31 U/L Normal 10-40 [facility] ([place]) Comment on above: Performed By: #### C BC, A1C, ADIFF, ANEU, GFR, CMP, VIDH, LIPID #### [address] [id number] Bili Total 0.6 mg/dL Normal 0.2-1.0 [facility] ([place]) Comment on above: Result Comment: Use of this assay is not recommended for patients undergoing treatment with eltrombopag due to the potential for falsely elevated results. Performed By: #### C BC, A1C, ADIFF, ANEU, GFR, CMP, VIDH, LIPID #### [address] [id number] BUN/Creatinine Ratio 15 ratio Normal 7-27 [facility] ([place]) Comment on above: Performed By: #### C BC, A1C, ADIFF, ANEU, GFR, CMP, VIDH, LIPID #### [address] [id number] Calcium [Mass/Vol] 9.4 mg/dL Normal 8.4-10.2 [facility] ([place]) Comment on above: Performed By: #### C BC, A1C, ADIFF, ANEU, GFR, CMP, VIDH, LIPID #### [address] [id number] Chloride [Moles/Vol] 104 mmol/L Normal 98-107 [facility] ([place]) Comment on above: Performed By: #### C BC, A1C, ADIFF, ANEU, GFR, CMP, VIDH, LIPID #### [address] [id number] CO2 [Moles/Vol] 31 mmol/L Normal 23-31 [facility] ([place]) Comment on above: Performed By: #### C BC, A1C, ADIFF, ANEU, GFR, CMP, VIDH, LIPID #### [address] [id number] Creatinine [Mass/Vol] 1.20 mg/dL Normal 0.70-1.30 [facility] ([place]) Comment on above: Performed By: #### C BC, A1C, ADIFF, ANEU, GFR, CMP, VIDH, LIPID #### [address] [id number] Electrolyte Balance 7.0 mEq/L Normal 4.0-15.0 [facility] ([place]) Comment on above: Performed By: #### C BC, A1C, ADIFF, ANEU, GFR, CMP, VIDH, LIPID #### [address] [id number] Globulin 3.4 G/dL Normal [facility] ([place]) Comment on above: Performed By: #### C BC, A1C, ADIFF, ANEU, GFR, CMP, VIDH, LIPID #### [address] [id number] Glucose [Mass/Vol] 131 mg/dL High 80-115 [facility] ([place]) Comment on above: Performed By: #### C BC, A1C, ADIFF, ANEU, GFR, CMP, VIDH, LIPID #### [address] [id number] Potassium [Moles/Vol] 5.4 mmol/L High 3.5-5.1 [facility] ([place]) Comment on above: Performed By: #### C BC, A1C, ADIFF, ANEU, GFR, CMP, VIDH, LIPID #### [address] [address] Sodium [Moles/Vol] 142 mmol/L Normal 136-145 [facility] ([place]) Comment on above: Performed By: #### C BC, A1C, ADIFF, ANEU, GFR, CMP, VIDH, LIPID #### [address] [id number] Total Protein 7.3 G/dL Normal 6.4-8.2 [facility] ([place]) Comment on above: Performed By: #### C BC, A1C, ADIFF, ANEU, GFR, CMP, VIDH, LIPID #### [address] [address] Urea nitrogen [Mass/Vol] 18 mg/dL Normal 7-18 [facility]) Comment on above: Performed By: #### C BC, A1C, ADIFF, ANEU, GFR, CMP, VIDH, LIPID #### [address] [address] LABORATORYOrdered By: Nighat Ruiz on 01-21-2024 Albumin DL <= 20 mg/L (U) [Mass/Vol] 595 mcg/dL Invalid Interpretation Code AO ADM SS Albumin/Creatinine DL <= 20 mg/L (U) [Mass ratio] 3 mcg/mg Normal 0 - 30 mcg/mg AO ADM SS Creatinine (U) [Mass/Vol] 194.6 mg/dL Normal 39.0 - 259.0 mg/dL AO ADM SS Cholesterol [Mass/Vol] 124 mg/dL Normal 0 - 2 00 mg/dL AO ADM SS Comment on above: Interpretive Data: C holesterol Reference Interval: Less than 200 Desirable 200-239 Borderline high risk 240 and above High risk Cholesterol in HDL [Mass/Vol] 27 mg/dL Low 40 - 60 mg/dL AO ADM SS Cholesterol in LDL [Mass/Vol] 78 mg/dL Normal 0 - 130 mg/dL AO ADM SS Triglyceride [Mass/Vol] 96 mg/dL Normal 0 - 150 mg/dL AO ADM SS Comment on above: Interpretive Data: T riglyceride Reference Interval: Less than 150 Normal 150-199 Borderline high risk 200-499 High risk 500 or higher Very high risk LABORATORYOrdered By: SYSTEM SYSTEM on 01-21-2024 25-hydroxyvitamin D3 [Mass/Vol] 81.6 ng/mL Invalid Interpretation Code AO ADM SS Comment on above: Interpretive Data: I nterpretive Values Based on Total 25(OH) Vitamin D: Deficient <20 ng/mL Insufficient 20 - <30 ng/mL Sufficient 30-100 ng/mL Albumin BCP dye [Mass/Vol] 3.9 G/dL Normal 3.4 - 4.8 G/dL AO ADM SS Albumin/Globulin [Mass ratio] 1.1 {ratio} Normal 1.1 - 2.5 ratio AO ADM SS ALP [Catalytic activity/Vol] 58 U/L Normal 40 - 135 U/L AO ADM SS ALT With P-5'-P [Catalytic activity/Vol] 45 U/L Normal 16 - 63 U/L AO ADM SS AST With P-5'-P [Catalytic activity/Vol] 31 U/L Normal 10 - 40 U/L AO ADM SS Basophil, Absolute 0.1 103/mcL Normal 0.0 - 0.2 10^3/mcL AO Workflow SS Basophils/100 WBC (Bld) 1.3 % Normal 0.0 - 2.5 % AO Workflow SS Bilirubin [Mass/Vol] 0.6 mg/dL Normal 0.2 - 1 .0 mg/dL AO ADM SS Comment on above: Interpretive Data: U se of this assay is not recommended for patients undergoing treatment with eltrombopag due to the potential for falsely elevated results. Calcium [Mass/Vol] 9.4 mg/dL Normal 8.4 - 10. 2 mg/dL AO ADM SS Chloride [Moles/Vol] 104 mmol/L Normal 98 - 10 7 mmol/L AO ADM SS CO2 [Moles/Vol] 31 mmol/L Normal 23 - 31 mmol/L AO ADM SS Creatinine [Mass/Vol] 1.20 mg/dL Normal 0.70 - 1.30 mg/dL AO ADM SS Electrolyte Balance 7.0 mEq/L Normal 4.0 - 15 .0 mEq/L AO ADM SS Eosinophil, Absolute 0.5 103/mcL High 0.0 - 0 .4 10^3/mcL AO Workflow SS Eosinophils/100 WBC (Bld) 5.5 % Normal 0.0 - 7.0 % AO Workflow SS Erythrocyte distribution width (RBC) [Ratio] 12.8 % Normal 11.5 - 14.5 % AO Workflow SS GFR/1.73 sq M.predicted among blacks MDRD (S/P/Bld) [Vol rate/Area] 74 ml/min/1.73sqm Invalid Interpretation Code AO Chemistry S Comment on above: Interpretive Data: GFR Population mean for , Non- Americans Ages 20-29 = 116 mL/min/1.73 sq.m. Ages 30-39 = 107 mL/min/1.73 sq.m. Ages 40-49 = 99 mL/min/1.73 sq.m. Ages 50-59 = 93 mL/min/1.73 sq.m. Ages 60-69 = 85 mL/min/1.73 sq.m. Ages 70+ = 75 mL/min/1.73 sq.m. Chronic Kidney Disease: Less than 60 mL/min/1.73 square meters End Stage Renal Disease: Less than 15 mL/min/1.73 square meters GFR/1.73 sq M.predicted among non-blacks MDRD (S/P/Bld) [Vol rate/Area] 61 ml/min/1.73sqm Invalid Interpretation Code AO Chemistry S Comment on above: Interpretive Data: GFR Population mean for , Non- Americans Ages 20-29 = 116 mL/min/1.73 sq.m. Ages 30-39 = 107 mL/min/1.73 sq.m. Ages 40-49 = 99 mL/min/1.73 sq.m. Ages 50-59 = 93 mL/min/1.73 sq.m. Ages 60-69 = 85 mL/min/1.73 sq.m. Ages 70+ = 75 mL/min/1.73 sq.m. Chronic Kidney Disease: Less than 60 mL/min/1.73 square meters End Stage Renal Disease: Less than 15 mL/min/1.73 square meters Globulin 3.4 G/dL Invalid Interpretation Code AO ADM SS Glucose [Mass/Vol] 131 mg/dL High 80 - 115 mg/dL AO ADM SS HbA1c (Bld) [Mass fraction] 6.5 % High 4.3 - 6.4 % AO ADM SS Hematocrit (Bld) [Volume fraction] 47.4 % Normal 42.0 - 52.0 % AO Workflow SS Hemoglobin (Bld) [Mass/Vol] 16.7 G/dL Normal 14.0 - 18.0 G/dL AO Workflow SS Lymphocyte, Absolute 1.4 103/mcL Normal 0.8 - 3 .9 10^3/mcL AO Workflow SS Lymphocytes/100 WBC (Bld) 16.2 % Normal 10.0 - 50.0 % AO Workflow SS MCH (RBC) [Entitic mass] 32.1 pg High 27.0 - 31.2 pg AO Workflow SS MCHC 35.3 G/dL Normal 31.8 - 35.4 G/dL AO Workflow SS MCV (RBC) [Entitic vol] 90.9 fL Normal 80.0 - 94.0 fL AO Workflow SS Monocyte, Absolute 1.0 103/mcL Normal 0.2 - 1.0 10^3/mcL AO Workflow SS Monocytes/100 WBC (Bld) 11.4 % Normal 1.7 - 13.0 % AO Workflow SS Neutrophil, Absolute 5.6 103/mcL Normal 2.9 - 6 .2 10^3/mcL AO Workflow SS Neutrophils/100 WBC (Bld) 65.6 % Normal 37.0 - 80.0 % AO Workflow SS Platelet mean volume (Bld) [Entitic vol] 6.9 fL Low 7.4 - 10.4 fL AO Workflow SS Platelets (Bld) [#/Vol] 401 103/mcL High 130 - 400 10^3/mcL AO Workflow SS Potassium [Moles/Vol] 5.4 mmol/L High 3.5 - 5.1 mmol/L AO ADM SS Protein [Mass/Vol] 7.3 G/dL Normal 6.4 - 8.2 G/dL AO ADM SS RBC (Bld) [#/Vol] 5.22 106/mcL Normal 4.04 - 6.1 3 10^6/mcL AO Workflow SS Sodium [Moles/Vol] 142 mmol/L Normal 136 - 145 mmol/L AO ADM SS Urea nitrogen [Mass/Vol] 18 mg/dL Normal 7 - 18 mg/dL AO ADM SS Urea nitrogen/Creatinine [Mass ratio] 15 ratio Normal 7 - 27 ratio AO ADM SS WBC (Bld) [#/Vol] 8.5 103/mcL Normal 4.6 - 10.8 10^3/mcL AO Workflow SS LIPIDon 01-21-2024 Cholesterol [Mass/Vol] 124 mg/dL Normal 0-200 [facility] ([place]) Comment on above: Result Comment: Chol esterol Reference Interval: Less than 200 Desirable 200-239 Borderline high risk 240 and above High risk Performed By: #### C BC, A1C, ADIFF, ANEU, GFR, CMP, VIDH, LIPID #### [address] [address] Cholesterol in HDL [Mass/Vol] 27 mg/dL Low 40-60 [facility] ([place]) Comment on above: Performed By: #### C BC, A1C, ADIFF, ANEU, GFR, CMP, VIDH, LIPID #### [address] [address] Cholesterol in LDL [Mass/Vol] 78 mg/dL Normal 0-130 [facility] ([place]) Comment on above: Performed By: #### C BC, A1C, ADIFF, ANEU, GFR, CMP, VIDH, LIPID #### [address] [address] Triglyceride [Mass/Vol] 96 mg/dL Normal 0-150 [facility] ([place]) Comment on above: Result Comment: Trig lyceride Reference Interval: Less than 150 Normal 150-199 Borderline high risk 200-499 High risk 500 or higher Very high risk Performed By: #### C BC, A1C, ADIFF, ANEU, GFR, CMP, VIDH, LIPID #### [address] [address] MALBRon 01-21-2024 U Creatinine 194.6 mg/dL Normal 39.0-259.0 [facility] ([place]) Comment on above: Performed By: #### C BC, A1C, ADIFF, ANEU, GFR, CMP, VIDH, LIPID #### [id number] [place], [place] [address] U Microalb 595 mcg/dL Normal [facility] ([place]) Comment on above: Performed By: #### C BC, A1C, ADIFF, ANEU, GFR, CMP, VIDH, LIPID #### [address] [place], [place] [address] U Ratio Alb/Cre 3 mcg/mg Normal 0-30 [facility] ([place]) Comment on above: Performed By: #### C BC, A1C, ADIFF, ANEU, GFR, CMP, VIDH, LIPID #### [address] [place], [place] [address] VIDHon 01-21-2024 Vit. D 25-Hydroxy 81.6 ng/mL Normal [facility] ([place]) Comment on above: Result Comment: Inte rpretive Values Based on Total 25(OH) Vitamin D: Deficient <20 ng/mL Insufficient 20 - <30 ng/mL Sufficient 30-100 ng/mL Performed By: #### C BC, A1C, ADIFF, ANEU, GFR, CMP, VIDH, LIPID #### [address] [place], [place] [address] Basophil percentageOrdered B y: Raysa Gabino on 12-10-2023 Basophil percentage 0.05 ng/mL 0.0-4.0 [facility] Comment on above: This test was perfor med using the TPSA assay method for the[employer] chemistry system. Values obtained with differentassay methods cannot be used interchangably.When changing PSA assays in the course of monitoring apatient, additional sequential testing should be carriedout to confirm baseline values. PSA,Total- Diagnosticon 11-27 PSA, DIAGNOSTIC 0.05 ng/mL Normal 0.0-4.0 [facility] Comment on above: Result Comment: This test was performed using the TPSA assay method for the [employer] chemistry system. Values obtained with different assay methods cannot be used interchangably. When changing PSA assays in the course of monitoring a patient, additional sequential testing should be carried out to confirm baseline values. Performed By: #### L [phone] #### [facility] Justin Ernst [place], [place], [id number] No Panel InformationOrdered By: Ankur Florence on 06-05-2023 Prostate Specific Antigen Total 0.07 ng/mL 0.0-4.0 [facility] Comment on above: This test was perfor med using the TPSA assay method for [employer] chemistry system. Values obtained with differentassay methods cannot be used interchangably.When changing PSA assays in the course of monitoring apatient, additional sequential testing should be carriedout to confirm baseline values. .Auto Diffon 05-13-2023 Basophil, Absolute 0.1 10 3/mcL Normal 0.0-0.2 [facility] ([place]) Comment on above: Performed By: #### A DIFF, VIDH, LIPID, ANEU, CBC, GFR, CMP #### [address] [address] Basophils/100 WBC (Bld) 0.7 % Normal 0.0-2.5 [facility] ([place]) Comment on above: Performed By: #### A DIFF, VIDH, LIPID, ANEU, CBC, GFR, CMP #### [address] [address] Eosinophil, Absolute 0.2 10 3/mcL Normal 0.0-0.4 [facility] ([place]) Comment on above: Performed By: #### A DIFF, VIDH, LIPID, ANEU, CBC, GFR, CMP #### [address] [address] Eosinophils/100 WBC (Bld) 2.1 % Normal 0.0-7.0 [facility] ([place]) Comment on above: Performed By: #### A DIFF, VIDH, LIPID, ANEU, CBC, GFR, CMP #### [address] [address] Lymphocyte, Absolute 1.6 10 3/mcL Normal 0.8-3.9 [facility] ([place]) Comment on above: Performed By: #### A DIFF, VIDH, LIPID, ANEU, CBC, GFR, CMP #### [address] [address] Lymphocytes/100 WBC (Bld) 19.2 % Normal 10.0-50.0 [facility] ([place]) Comment on above: Performed By: #### A DIFF, VIDH, LIPID, ANEU, CBC, GFR, CMP #### [address] [address] Monocyte, Absolute 0.8 10 3/mcL Normal 0.2-1.0 [facility] ([place]) Comment on above: Performed By: #### A DIFF, VIDH, LIPID, ANEU, CBC, GFR, CMP #### [address] [address] Monocytes/100 WBC (Bld) 10.0 % Normal 1.7-13.0 [facility] ([place]) Comment on above: Performed By: #### A DIFF, VIDH, LIPID, ANEU, CBC, GFR, CMP #### [address] [address] Neutrophils/100 WBC (Bld) 68.0 % Normal 37.0-80.0 [facility] ([place]) Comment on above: Performed By: #### A DIFF, VIDH, LIPID, ANEU, CBC, GFR, CMP #### [address] [address] .GFRon 05-13-2023 GFR Non- 62 ml/min/1.73sqm Normal [facility] ([place]) Comment on above: Result Comment: GFR Population mean for , Non- Americans Ages 20-29 = 116 mL/min/1.73 sq.m. Ages 30-39 = 107 mL/min/1.73 sq.m. Ages 40-49 = 99 mL/min/1.73 sq.m. Ages 50-59 = 93 mL/min/1.73 sq.m. Ages 60-69 = 85 mL/min/1.73 sq.m. Ages 70+ = 75 mL/min/1.73 sq.m. Chronic Kidney Disease: Less than 60 mL/min/1.73 square meters End Stage Renal Disease: Less than 15 mL/min/1.73 square meters Performed By: #### C BC, A1C, ADIFF, ANEU, GFR, CMP, VIDH, LIPID #### [address] [address] GFR 76 ml/min/1.73sqm Normal [facility] ([place]) Comment on above: Result Comment: GFR Population mean for , Non- Americans Ages 20-29 = 116 mL/min/1.73 sq.m. Ages 30-39 = 107 mL/min/1.73 sq.m. Ages 40-49 = 99 mL/min/1.73 sq.m. Ages 50-59 = 93 mL/min/1.73 sq.m. Ages 60-69 = 85 mL/min/1.73 sq.m. Ages 70+ = 75 mL/min/1.73 sq.m. Chronic Kidney Disease: Less than 60 mL/min/1.73 square meters End Stage Renal Disease: Less than 15 mL/min/1.73 square meters Performed By: #### C BC, A1C, ADIFF, ANEU, GFR, CMP, VIDH, LIPID #### [address] [address] .NEUABSon 05-13-2023 Neutrophil, Absolute 5.6 10 3/mcL Normal 2.9-6.2 [facility] ([place]) Comment on above: Performed By: #### C BC, A1C, ADIFF, ANEU, GFR, CMP, VIDH, LIPID #### [address] [address] CBCon 05-13-2023 Erythrocyte distribution width (RBC) [Ratio] 12.8 % Normal 11.5-14.5 [facility] ([place]) Comment on above: Performed By: #### A DIFF, VIDH, LIPID, ANEU, CBC, GFR, CMP #### [address] [address] Hematocrit (Bld) [Volume fraction] 49.8 % Normal 42.0-52.0 [facility] ([place]) Comment on above: Performed By: #### A DIFF, VIDH, LIPID, ANEU, CBC, GFR, CMP #### [address] [address] Hgb 17.6 G/dL Normal 14.0-18.0 [facility] ([place]) Comment on above: Performed By: #### A DIFF, VIDH, LIPID, ANEU, CBC, GFR, CMP #### [address] [address] MCH (RBC) [Entitic mass] 32.1 pg High 27.0-31.2 [facility] ([place]) Comment on above: Performed By: #### A DIFF, VIDH, LIPID, ANEU, CBC, GFR, CMP #### [place] [address] MCHC 35.3 G/dL Normal 31.8-35.4 [facility] ([place]) Comment on above: Performed By: #### A DIFF, VIDH, LIPID, ANEU, CBC, GFR, CMP #### [place] [address] MCV (RBC) [Entitic vol] 91.1 fL Normal 80.0-94.0 [facility] ([place]) Comment on above: Performed By: #### A DIFF, VIDH, LIPID, ANEU, CBC, GFR, CMP #### [address] [address] Platelet 307 10 3/mcL Normal 130-400 [facility] ([place]) Comment on above: Performed By: #### A DIFF, VIDH, LIPID, ANEU, CBC, GFR, CMP #### [place] [id number] Platelet mean volume (Bld) [Entitic vol] 7.2 fL Low 7.4-10.4 [facility] ([place]) Comment on above: Performed By: #### A DIFF, VIDH, LIPID, ANEU, CBC, GFR, CMP #### [place] [id number] RBC 5.47 10 6/mcL Normal 4.04-6.13 [facility] ([place]) Comment on above: Performed By: #### A DIFF, VIDH, LIPID, ANEU, CBC, GFR, CMP #### [address] [address] WBC 8.3 10 3/mcL Normal 4.6-10.8 [facility] ([place]) Comment on above: Performed By: #### A DIFF, VIDH, LIPID, ANEU, CBC, GFR, CMP #### [address] [address] CMPon 05-13-2023 Albumin Level 4.5 G/dL Normal 3.4-4.8 [facility] ([place]) Comment on above: Performed By: #### C BC, A1C, ADIFF, ANEU, GFR, CMP, VIDH, LIPID #### [address] [address] Albumin/Globulin [Mass ratio] 1.5 {ratio} Normal 1.1-2.5 [facility] ([place]) Comment on above: Performed By: #### C BC, A1C, ADIFF, ANEU, GFR, CMP, VIDH, LIPID #### [address] [address] ALP [Catalytic activity/Vol] 57 U/L Normal 40-135 [facility] ([place]) Comment on above: Performed By: #### C BC, A1C, ADIFF, ANEU, GFR, CMP, VIDH, LIPID #### [address] [address] ALT [Catalytic activity/Vol] 62 U/L Normal 16-63 [facility] ([place]) Comment on above: Performed By: #### C BC, A1C, ADIFF, ANEU, GFR, CMP, VIDH, LIPID #### [address] [address] AST [Catalytic activity/Vol] 30 U/L Normal 10-40 [facility] ([place]) Comment on above: Performed By: #### C BC, A1C, ADIFF, ANEU, GFR, CMP, VIDH, LIPID #### [address] [address] Bili Total 0.9 mg/dL Normal 0.2-1.0 [facility] ([place]) Comment on above: Result Comment: Use of this assay is not recommended for patients undergoing treatment with eltrombopag due to the potential for falsely elevated results. Performed By: #### C BC, A1C, ADIFF, ANEU, GFR, CMP, VIDH, LIPID #### [address] [address] BUN/Creatinine Ratio 13 ratio Normal 7-27 [facility] ([place]) Comment on above: Performed By: #### C BC, A1C, ADIFF, ANEU, GFR, CMP, VIDH, LIPID #### [address] [address] Calcium [Mass/Vol] 9.8 mg/dL Normal 8.4-10.2 [facility] ([place]) Comment on above: Performed By: #### C BC, A1C, ADIFF, ANEU, GFR, CMP, VIDH, LIPID #### [address] [address] Chloride [Moles/Vol] 102 mmol/L Normal 98-107 [facility] ([place]) Comment on above: Performed By: #### C BC, A1C, ADIFF, ANEU, GFR, CMP, VIDH, LIPID #### [address] [address] CO2 [Moles/Vol] 30 mmol/L Normal 23-31 [facility] ([place]) Comment on above: Performed By: #### C BC, A1C, ADIFF, ANEU, GFR, CMP, VIDH, LIPID #### [address] [address] Creatinine [Mass/Vol] 1.18 mg/dL Normal 0.70-1.30 [facility] ([place]) Comment on above: Performed By: #### C BC, A1C, ADIFF, ANEU, GFR, CMP, VIDH, LIPID #### [address] [address] Electrolyte Balance 7.0 mEq/L Normal 4.0-15.0 [facility] ([place]) Comment on above: Performed By: #### C BC, A1C, ADIFF, ANEU, GFR, CMP, VIDH, LIPID #### [address] [address] Globulin 3.1 G/dL Normal [facility] ([place]) Comment on above: Performed By: #### C BC, A1C, ADIFF, ANEU, GFR, CMP, VIDH, LIPID #### [address] [address] Glucose [Mass/Vol] 111 mg/dL Normal 80-115 [facility] ([place]) Comment on above: Performed By: #### C BC, A1C, ADIFF, ANEU, GFR, CMP, VIDH, LIPID #### [address] [address] Potassium [Moles/Vol] 5.1 mmol/L Normal 3.5-5.1 [facility] ([place]) Comment on above: Performed By: #### C BC, A1C, ADIFF, ANEU, GFR, CMP, VIDH, LIPID #### [address] [address] Sodium [Moles/Vol] 139 mmol/L Normal 136-145 [facility] ([place]) Comment on above: Performed By: #### C BC, A1C, ADIFF, ANEU, GFR, CMP, VIDH, LIPID #### [address] [address] Total Protein 7.6 G/dL Normal 6.4-8.2 [facility] ([place]) Comment on above: Performed By: #### C BC, A1C, ADIFF, ANEU, GFR, CMP, VIDH, LIPID #### [address] [address] Urea nitrogen [Mass/Vol] 15 mg/dL Normal 7-18 [facility] ([place]) Comment on above: Performed By: #### C BC, A1C, ADIFF, ANEU, GFR, CMP, VIDH, LIPID #### [address] [address] LIPIDon 05-13-2023 Cholesterol [Mass/Vol] 153 mg/dL Normal 0-200 [facility] ([place]) Comment on above: Result Comment: Chol esterol Reference Interval: Less than 200 Desirable 200-239 Borderline high risk 240 and above High risk Performed By: #### C BC, A1C, ADIFF, ANEU, GFR, CMP, VIDH, LIPID #### [address] [address] Cholesterol in HDL [Mass/Vol] 40 mg/dL Normal 40-60 [facility] ([place]) Comment on above: Performed By: #### C BC, A1C, ADIFF, ANEU, GFR, CMP, VIDH, LIPID #### [address] [address] Cholesterol in LDL [Mass/Vol] 94 mg/dL Normal 0-130 [facility] ([place]) Comment on above: Performed By: #### C BC, A1C, ADIFF, ANEU, GFR, CMP, VIDH, LIPID #### [address] [address] Triglyceride [Mass/Vol] 97 mg/dL Normal 0-150 [facility] ([place]) Comment on above: Result Comment: Trig lyceride Reference Interval: Less than 150 Normal 150-199 Borderline high risk 200-499 High risk 500 or higher Very high risk Performed By: #### C BC, A1C, ADIFF, ANEU, GFR, CMP, VIDH, LIPID #### [address] [address] VIDHon 05-13-2023 Vit. D 25-Hydroxy 90.3 ng/mL Normal [facility] ([place]) Comment on above: Result Comment: Inte rpretive Values Based on Total 25(OH) Vitamin D: Deficient <20 ng/mL Insufficient 20 - <30 ng/mL Sufficient 30-100 ng/mL Performed By: #### C BC, A1C, ADIFF, ANEU, GFR, CMP, VIDH, LIPID #### [address] [address] XR FOOT MINIMUM 3 VIEWS CARYCamacho Reed 01-28-2023 XR FOOT MINIMUM 3 VIEWS RIGHT ORIGINAL EXAMINATION: THREE XRAY VIEWS OF THE RIGHT FOOT01/24/2023 1:56 pm COMPARISON: None. HISTORY: ORDERING SYSTEM PROVIDED HISTORY: Reason for Exam: pain in lateral mid-foot with noted pain deformity, question dislocation vs other etiology FINDINGS: No acute fracture or dislocation. Incidentally noted os peroneum. Plantar calcaneal spur. Other overall mild degenerative changes, most notably with joint space loss of the 1st tarsometatarsal joint. The Lisfranc articulations are intact. No aggressive osseous lesions. Small ossification adjacent to the lateral base of the 5th metatarsal may be from remote avulsion or enthesopathy. No radiopaque foreign body is present. IMPRESSION: No acute osseous abnormality. Mild degenerative changes as above. Ossification adjacent to the base of the 5th metatarsal remote injury versus is enthesopathy. Significance is uncertain, correlate with point tenderness. I have personally reviewed the images of this examination and agree with the resident's findings and interpretation. Interpreted by: Jefferson Borrgeo MD Preliminary Report By: Jose Guadalupe Mckinley Electronically signed By Jefferson Borrego MD Dictated Date: 01/27/2023 11:39:00 AM Prelim Date: 01/28/2023 8:38:01 AM Sign Date: 01/28/2023 8:38:01 AM Ordering Provider: MOSHE GRAHAM [facility] ([place]) LABORATORYOrdered By: Kaelyn Guardado on 01-14-2023 Albumin DL <= 20 mg/L (U) [Mass/Vol] 974 mcg/dL Invalid Interpretation Code AO ADM SS Albumin/Creatinine DL <= 20 mg/L (U) [Mass ratio] 4 mcg/mg Invalid Interpretation Code 0 - 30 mcg/mg AO ADM SS Creatinine (U) [Mass/Vol] 249.4 mg/dL Invalid Interpretation Code 39.0 - 259.0 mg/dL AO ADM SS Cholesterol [Mass/Vol] 141 mg/dL Invalid Interpretation Code 0 - 200 mg/dL AO ADM SS Cholesterol in HDL [Mass/Vol] 37 mg/dL Invalid Interpretation Code 40 - 60 mg/dL AO ADM SS Cholesterol in LDL [Mass/Vol] 89 mg/dL Invalid Interpretation Code 0 - 130 mg/dL AO ADM SS Triglyceride [Mass/Vol] 74 mg/dL Invalid Interpretation Code 0 - 150 mg/dL AO ADM SS LABORATORYOrdered By: SYSTEM SYSTEM on 01-14-2023 Albumin BCP dye [Mass/Vol] 4.4 G/dL Invalid Interpretation Code 3.4 - 4.8 G/dL AO ADM SS Albumin/Globulin [Mass ratio] 1.6 {ratio} Invalid Interpretation Code 1.1 - 2.5 ratio AO ADM SS ALP [Catalytic activity/Vol] 65 U/L Invalid Interpretation Code 40 - 135 U/L AO ADM SS ALT With P-5'-P [Catalytic activity/Vol] 58 U/L Invalid Interpretation Code 16 - 63 U/L AO ADM SS AST With P-5'-P [Catalytic activity/Vol] 29 U/L Invalid Interpretation Code 10 - 40 U/L AO ADM SS Bilirubin [Mass/Vol] 0.8 mg/dL Invalid Interpretation Code 0.2 - 1.0 mg/dL AO ADM SS Calcium [Mass/Vol] 9.5 mg/dL Invalid Interpretation Code 8.4 - 10.2 mg/dL AO ADM SS Chloride [Moles/Vol] 104 mmol/L Invalid Interpretation Code 98 - 107 mmol/L AO ADM SS CO2 [Moles/Vol] 28 mmol/L Invalid Interpretation Code 23 - 31 mmol/L AO ADM SS Creatinine [Mass/Vol] 1.22 mg/dL Invalid Interpretation Code 0.70 - 1.30 mg/dL AO ADM SS Electrolyte Balance 7.0 mEq/L Invalid Interpretation Code 4.0 - 15.0 mEq/L AO ADM SS GFR 73 ml/min/1.73sqm Invalid Interpretation Code AO Chemistry S GFR Non- 60 ml/min/1.73sqm Invalid Interpretation Code AO Chemistry S Globulin 2.8 G/dL Invalid Interpretation Code AO ADM SS Glucose [Mass/Vol] 126 mg/dL Invalid Interpretation Code 80 - 115 mg/dL AO ADM SS HbA1c (Bld) [Mass fraction] 6.1 % Invalid Interpretation Code 4.3 - 6.4 % AO ADM SS Parathyrin.intact [Mass/Vol] 19.9 pg/mL Invalid Interpretation Code 18.5 - 88.0 pg/mL AH ADM SS Potassium [Moles/Vol] 5.2 mmol/L Invalid Interpretation Code 3.5 - 5.1 mmol/L AO ADM SS Prostate specific Ag [Mass/Vol] 0.07 ng/mL Invalid Interpretation Code 0.00 - 4.00 ng/mL AO ADM SS Protein [Mass/Vol] 7.2 G/dL Invalid Interpretation Code 6.4 - 8.2 G/dL AO ADM SS Sodium [Moles/Vol] 139 mmol/L Invalid Interpretation Code 136 - 145 mmol/L AO ADM SS Urea nitrogen [Mass/Vol] 16 mg/dL Invalid Interpretation Code 7 - 18 mg/dL AO ADM SS Urea nitrogen/Creatinine [Mass ratio] 13 ratio Invalid Interpretation Code 7 - 27 ratio AO ADM SS Vit. D 25-Hydroxy 86.6 ng/mL Invalid Interpretation Code AO ADM SS LABORATORYOrdered By: Angie Benavidez on 01-14-2023 Basophil, Absolute 0.0 103/mcL Invalid Interpretation Code 0.0 - 0.2 10^3/mcL AO Workflow SS Basophils/100 WBC (Bld) 0.4 % Invalid Interpretation Code 0.0 - 2.5 % AO Workflow SS Eosinophil, Absolute 0.2 103/mcL Invalid Interpretation Code 0.0 - 0.4 10^3/mcL AO Workflow SS Eosinophils/100 WBC (Bld) 2.3 % Invalid Interpretation Code 0.0 - 7.0 % AO Workflow SS Erythrocyte distribution width (RBC) [Ratio] 12.8 % Invalid Interpretation Code 11.5 - 14.5 % AO Workflow SS Hematocrit (Bld) [Volume fraction] 48.3 % Invalid Interpretation Code 42.0 - 52.0 % AO Workflow SS Hemoglobin (Bld) [Mass/Vol] 16.9 G/dL Invalid Interpretation Code 14.0 - 18.0 G/dL AO Workflow SS Lymphocyte, Absolute 1.5 103/mcL Invalid Interpretation Code 0.8 - 3.9 10^3/mcL AO Workflow SS Lymphocytes/100 WBC (Bld) 17.6 % Invalid Interpretation Code 10.0 - 50.0 % AO Workflow SS MCH (RBC) [Entitic mass] 31.6 pg Invalid Interpretation Code 27.0 - 31.2 pg AO Workflow SS MCHC 35.0 G/dL Invalid Interpretation Code 31.8 - 35.4 G/dL AO Workflow SS MCV (RBC) [Entitic vol] 90.3 fL Invalid Interpretation Code 80.0 - 94.0 fL AO Workflow SS Monocyte, Absolute 0.9 103/mcL Invalid Interpretation Code 0.2 - 1.0 10^3/mcL AO Workflow SS Monocytes/100 WBC (Bld) 11.5 % Invalid Interpretation Code 1.7 - 13.0 % AO Workflow SS Neutrophil, Absolute 5.6 103/mcL Invalid Interpretation Code 2.9 - 6.2 10^3/mcL AO Workflow SS Neutrophils/100 WBC (Bld) 68.2 % Invalid Interpretation Code 37.0 - 80.0 % AO Workflow SS Platelet mean volume (Bld) [Entitic vol] 7.3 fL Invalid Interpretation Code 7.4 - 10.4 fL AO Workflow SS Platelets (Bld) [#/Vol] 297 103/mcL Invalid Interpretation Code 130 - 400 10^3/mcL AO Workflow SS RBC (Bld) [#/Vol] 5.35 106/mcL Invalid Interpretation Code 4.04 - 6.13 10^6/mcL AO Workflow SS WBC (Bld) [#/Vol] 8.3 103/mcL Invalid Interpretation Code 4.6 - 10.8 10^3/mcL AO Workflow SS LABORATORYOrdered By: Leta Aranda on 07-16-2022 Creatinine (U) [Mass/Vol] 138.4 mg/dL Invalid Interpretation Code AH ADM SS Protein (U) [Mass/Vol] 451 mcg/dL Invalid Interpretation Code AH ADM SS U Ratio Alb/Cre 3.3 mcg/mg Invalid Interpretation Code 0.0 - 16.9 mcg/mg AH ADM SS LABORATORYOrdered By: Kaelyn Guardado on 07-16-2022 Albumin BCP dye [Mass/Vol] 4.3 G/dL Invalid Interpretation Code 3.4 - 4.8 G/dL AO ADM SS Albumin/Globulin [Mass ratio] 1.4 {ratio} Invalid Interpretation Code 1.1 - 2.5 ratio AO ADM SS ALP [Catalytic activity/Vol] 64 U/L Invalid Interpretation Code 40 - 135 U/L AO ADM SS ALT With P-5'-P [Catalytic activity/Vol] 62 U/L Invalid Interpretation Code 16 - 63 U/L AO ADM SS AST With P-5'-P [Catalytic activity/Vol] 35 U/L Invalid Interpretation Code 10 - 40 U/L AO ADM SS Bilirubin [Mass/Vol] 0.7 mg/dL Invalid Interpretation Code 0.2 - 1.0 mg/dL AO ADM SS Calcium [Mass/Vol] 9.5 mg/dL Invalid Interpretation Code 8.4 - 10.2 mg/dL AO ADM SS Chloride [Moles/Vol] 102 mmol/L Invalid Interpretation Code 98 - 107 mmol/L AO ADM SS Cholesterol [Mass/Vol] 148 mg/dL Invalid Interpretation Code 0 - 200 mg/dL AO ADM SS Cholesterol in HDL [Mass/Vol] 35 mg/dL Invalid Interpretation Code 40 - 60 mg/dL AO ADM SS Cholesterol in LDL [Mass/Vol] 95 mg/dL Invalid Interpretation Code 0 - 130 mg/dL AO ADM SS CO2 [Moles/Vol] 30 mmol/L Invalid Interpretation Code 23 - 31 mmol/L AO ADM SS Creatinine [Mass/Vol] 1.19 mg/dL Invalid Interpretation Code 0.70 - 1.30 mg/dL AO ADM SS Electrolyte Balance 7.0 mEq/L Invalid Interpretation Code 4.0 - 15.0 mEq/L AO ADM SS Globulin 3.0 G/dL Invalid Interpretation Code AO ADM SS Glucose [Mass/Vol] 120 mg/dL Invalid Interpretation Code 80 - 115 mg/dL AO ADM SS HbA1c (Bld) [Mass fraction] 6.0 % Invalid Interpretation Code 4.3 - 6.4 % AO ADM SS Potassium [Moles/Vol] 5.0 mmol/L Invalid Interpretation Code 3.5 - 5.1 mmol/L AO ADM SS Protein [Mass/Vol] 7.3 G/dL Invalid Interpretation Code 6.4 - 8.2 G/dL AO ADM SS Sodium [Moles/Vol] 139 mmol/L Invalid Interpretation Code 136 - 145 mmol/L AO ADM SS Triglyceride [Mass/Vol] 88 mg/dL Invalid Interpretation Code 0 - 150 mg/dL AO ADM SS Urea nitrogen [Mass/Vol] 17 mg/dL Invalid Interpretation Code 7 - 18 mg/dL AO ADM SS Urea nitrogen/Creatinine [Mass ratio] 14 ratio Invalid Interpretation Code 7 - 27 ratio AO ADM SS Vit. D 25-Hydroxy 79.5 ng/mL Invalid Interpretation Code AO ADM SS LABORATORYOrdered By: Nighat Ruiz on 07-16-2022 Basophil, Absolute 0.1 103/mcL Invalid Interpretation Code 0.0 - 0.2 10^3/mcL AO Workflow SS Basophils/100 WBC (Bld) 0.7 % Invalid Interpretation Code 0.0 - 2.5 % AO Workflow SS Eosinophil, Absolute 0.2 103/mcL Invalid Interpretation Code 0.0 - 0.4 10^3/mcL AO Workflow SS Eosinophils/100 WBC (Bld) 2.9 % Invalid Interpretation Code 0.0 - 7.0 % AO Workflow SS Erythrocyte distribution width (RBC) [Ratio] 13.1 % Invalid Interpretation Code 11.5 - 14.5 % AO Workflow SS Hematocrit (Bld) [Volume fraction] 48.4 % Invalid Interpretation Code 42.0 - 52.0 % AO Workflow SS Hemoglobin (Bld) [Mass/Vol] 17.1 G/dL Invalid Interpretation Code 14.0 - 18.0 G/dL AO Workflow SS Lymphocyte, Absolute 1.4 103/mcL Invalid Interpretation Code 0.8 - 3.9 10^3/mcL AO Workflow SS Lymphocytes/100 WBC (Bld) 19.1 % Invalid Interpretation Code 10.0 - 50.0 % AO Workflow SS MCH (RBC) [Entitic mass] 31.7 pg Invalid Interpretation Code 27.0 - 31.2 pg AO Workflow SS MCHC 35.3 G/dL Invalid Interpretation Code 31.8 - 35.4 G/dL AO Workflow SS MCV (RBC) [Entitic vol] 89.9 fL Invalid Interpretation Code 80.0 - 94.0 fL AO Workflow SS Monocyte, Absolute 0.9 103/mcL Invalid Interpretation Code 0.2 - 1.0 10^3/mcL AO Workflow SS Monocytes/100 WBC (Bld) 11.8 % Invalid Interpretation Code 1.7 - 13.0 % AO Workflow SS Neutrophil, Absolute 4.8 103/mcL Invalid Interpretation Code 2.9 - 6.2 10^3/mcL AO Workflow SS Neutrophils/100 WBC (Bld) 65.5 % Invalid Interpretation Code 37.0 - 80.0 % AO Workflow SS Platelet mean volume (Bld) [Entitic vol] 7.0 fL Invalid Interpretation Code 7.4 - 10.4 fL AO Workflow SS Platelets (Bld) [#/Vol] 299 103/mcL Invalid Interpretation Code 130 - 400 10^3/mcL AO Workflow SS RBC (Bld) [#/Vol] 5.39 106/mcL Invalid Interpretation Code 4.04 - 6.13 10^6/mcL AO Workflow SS WBC (Bld) [#/Vol] 7.3 103/mcL Invalid Interpretation Code 4.6 - 10.8 10^3/mcL AO Workflow SS LABORATORYOrdered By: SYSTEM SYSTEM on 07-16-2022 GFR 75 ml/min/1.73sqm Invalid Interpretation Code AO Chemistry S GFR Non- 62 ml/min/1.73sqm Invalid Interpretation Code AO Chemistry S No Panel Informationon 05-20 Prostate Specific Antigen Total 0.04 ng/mL 0.0-4.0 [facility] Work Phone: Comment on above: This test was perfor med using the TPSA assay method for [employer] chemistry system. Values obtained with differentassay methods cannot be used interchangably.When changing PSA assays in the course of monitoring apatient, additional sequential testing should be carriedout to confirm baseline values. LABORATORYOrdered By: Nighat Ruiz on 01-16-2022 Albumin BCP dye [Mass/Vol] 4.4 G/dL Invalid Interpretation Code 3.4 - 4.8 G/dL AO ADM SS Albumin/Globulin [Mass ratio] 1.4 {ratio} Invalid Interpretation Code 1.1 - 2.5 ratio AO ADM SS ALP [Catalytic activity/Vol] 64 U/L Invalid Interpretation Code 40 - 135 U/L AO ADM SS ALT With P-5'-P [Catalytic activity/Vol] 63 U/L Invalid Interpretation Code 16 - 63 U/L AO ADM SS AST With P-5'-P [Catalytic activity/Vol] 34 U/L Invalid Interpretation Code 10 - 40 U/L AO ADM SS Basophil, Absolute 0.10 103/mcL Invalid Interpretation Code 0.00 - 0.19 10^3/mcL AO Auto Heme SS Basophils/100 WBC (Bld) 0.7 % Invalid Interpretation Code 0.0 - 2.5 % AO Auto Heme SS Bilirubin [Mass/Vol] 0.6 mg/dL Invalid Interpretation Code 0.2 - 1.0 mg/dL AO ADM SS Calcium [Mass/Vol] 9.9 mg/dL Invalid Interpretation Code 8.4 - 10.2 mg/dL AO ADM SS Chloride [Moles/Vol] 103 mmol/L Invalid Interpretation Code 98 - 107 mmol/L AO ADM SS Cholesterol [Mass/Vol] 143 mg/dL Invalid Interpretation Code 0 - 200 mg/dL AO ADM SS Cholesterol in HDL [Mass/Vol] 37 mg/dL Invalid Interpretation Code 40 - 60 mg/dL AO ADM SS Cholesterol in LDL [Mass/Vol] 90 mg/dL Invalid Interpretation Code 0 - 130 mg/dL AO ADM SS CO2 [Moles/Vol] 28 mmol/L Invalid Interpretation Code 23 - 31 mmol/L AO ADM SS Creatinine [Mass/Vol] 1.22 mg/dL Invalid Interpretation Code 0.70 - 1.30 mg/dL AO ADM SS Electrolyte Balance 8.0 mEq/L Invalid Interpretation Code 4.0 - 15.0 mEq/L AO ADM SS Eosinophil, Absolute 0.20 103/mcL Invalid Interpretation Code 0.00 - 0.40 10^3/mcL AO Auto Heme SS Eosinophils/100 WBC (Bld) 2.1 % Invalid Interpretation Code 0.0 - 7.0 % AO Auto Heme SS Erythrocyte distribution width (RBC) [Ratio] 13.0 % Invalid Interpretation Code 11.5 - 14.5 % AO Auto Heme SS Globulin 3.1 G/dL Invalid Interpretation Code AO ADM SS Glucose [Mass/Vol] 116 mg/dL Invalid Interpretation Code 80 - 115 mg/dL AO ADM SS Hematocrit (Bld) [Volume fraction] 49.6 % Invalid Interpretation Code 42.0 - 52.0 % AO Auto Heme SS Hemoglobin (Bld) [Mass/Vol] 17.4 G/dL Invalid Interpretation Code 14.0 - 18.0 G/dL AO Auto Heme SS Lymphocyte, Absolute 1.60 103/mcL Invalid Interpretation Code 0.77 - 3.85 10^3/mcL AO Auto Heme SS Lymphocytes/100 WBC (Bld) 19.2 % Invalid Interpretation Code 10.0 - 50.0 % AO Auto Heme SS MCH (RBC) [Entitic mass] 31.8 pg Invalid Interpretation Code 27.0 - 31.2 pg AO Auto Heme SS MCHC (RBC) [Mass/Vol] 35.1 G/dL Invalid Interpretation Code 31.8 - 35.4 G/dL AO Auto Heme SS MCV (RBC) [Entitic vol] 90.6 fL Invalid Interpretation Code 80.0 - 94.0 fL AO Auto Heme SS Monocyte, Absolute 0.90 103/mcL Invalid Interpretation Code 0.15 - 1.00 10^3/mcL AO Auto Heme SS Monocytes/100 WBC (Bld) 10.9 % Invalid Interpretation Code 1.7 - 13.0 % AO Auto Heme SS Neutrophil, Absolute 5.60 103/mcL Invalid Interpretation Code 2.85 - 6.16 10^3/mcL AO Auto Heme SS Neutrophils/100 WBC (Bld) 67.1 % Invalid Interpretation Code 37.0 - 80.0 % AO Auto Heme SS Platelet mean volume (Bld) [Entitic vol] 7.2 fL Invalid Interpretation Code 7.4 - 10.4 fL AO Auto Heme SS Platelets (Bld) [#/Vol] 348 103/mcL Invalid Interpretation Code 130 - 400 10^3/mcL AO Auto Heme SS Potassium [Moles/Vol] 5.1 mmol/L Invalid Interpretation Code 3.5 - 5.1 mmol/L AO ADM SS Prostate specific Ag [Mass/Vol] ng/mL Invalid Interpretation Code 0.00 - 4.00 ng/mL AO ADM SS Protein [Mass/Vol] 7.5 G/dL Invalid Interpretation Code 6.4 - 8.2 G/dL AO ADM SS RBC (Bld) [#/Vol] 5.47 106/mcL Invalid Interpretation Code 4.04 - 6.13 10^6/mcL AO Auto Heme SS Sodium [Moles/Vol] 139 mmol/L Invalid Interpretation Code 136 - 145 mmol/L AO ADM SS Triglyceride [Mass/Vol] 81 mg/dL Invalid Interpretation Code 0 - 150 mg/dL AO ADM SS Urea nitrogen [Mass/Vol] 21 mg/dL Invalid Interpretation Code 7 - 18 mg/dL AO ADM SS Urea nitrogen/Creatinine [Mass ratio] 17 ratio Invalid Interpretation Code 7 - 27 ratio AO ADM SS Vit. D 25-Hydroxy 63.5 ng/mL Invalid Interpretation Code AO ADM SS WBC (Bld) [#/Vol] 8.30 103/mcL Invalid Interpretation Code 4.60 - 10.80 10^3/mcL AO Auto Heme SS LABORATORYOrdered By: SYSTEM SYSTEM on 01-16-2022 GFR 73 ml/min/1.73sqm Invalid Interpretation Code AO Chemistry S GFR Non- 60 ml/min/1.73sqm Invalid Interpretation Code AO Chemistry S No Panel Informationon 11-21 Prostate Specific Antigen Total 0.05 ng/mL 0.0-4.0 [facility] Work Phone: Comment on above: This test was perfor med using the TPSA assay method for the[employer] chemistry system. Values obtained with differentassay methods cannot be used interchangably.When changing PSA assays in the course of monitoring apatient, additional sequential testing should be carriedout to confirm baseline values. US THYROID/PARATHYROIDon US THYROID/PARATHYROID * * *Final Report * * * DATE OF EXAM: May 17 2021 7:31AM [facility] 1048 - US THYROID/PARATHYROID / PROCEDURE REASON: Thyroid nodule incidentally noted on imaging study * * * * Physician Interpretation * * * * EXAMINATION: THYROID ULTRASOUND CLINICAL HISTORY: Thyroid nodule incidentally noted on recent CT. TECHNIQUE: Sonography and Doppler imaging of the thyroid was performed. Images were obtained and stored in a permanent archive. MQ: UST_1 COMPARISON: There are no prior thyroid ultrasounds for comparison. Comparison is made to CT chest dated and April 2021 RESULT: Right Lobe: 5.7 x 2.6 x 2.5 cm; homogeneous echogenicity, expected vascular flow. Left Lobe: 4.9 x 2.1 x 1.5 cm; homogeneous echogenicity, expected vascular flow. Isthmus: cm The most suspicious thyroid nodule(s) (up to four) as below: NODULE 1: Location: Right mid to inferior lobe Size: 2.8 x 2.3 x 1.7 cm Characteristics: Composition: Mixed cystic and solid, 1 point Echogenicity: Echogenicity cannot be determined, 1 point Shape: [id number], 0 points Margin: Smooth, 0 points Echogenic foci (add points for all that apply): None, 0 points None, 0 points Internal vascularity: absent Interval growth: No prior available for comparison TI-RADS Category: TR2 ACR Recommendation: TI-RADS 2 Nodule. No follow-up or FNA is advised. IMPRESSION: Dominant cystic nodule with peripheral solid components without vascularity noted within the right mid to lower lobe. Additional tiny less than 5 mm cysts are seen scattered throughout both lobes. TI-RADS Category: TR2 ACR Recommendation: TI-RADS 2 Nodule. No follow-up or FNA is advised. ACR recommendations are strictly based on the size and imaging appearance at the time of the exam and do not consider stability or previous biopsy results. Junior Brand Manager: [facility] Transcribe Date/Time: May 17 2021 10:57A Dictated by : VAMSI GONZALES MD This examination was interpreted and the report reviewed and electronically signed by: VAMSI GONZALES MD on May 17 2021 11:01AM EST [id number] Normal [facility] CNOVon 05-15-2021 CNOV Office Visit (PULMWS ) JOSE GUADALUPE NGUYEN ([id number]) 1960 M Date Time Provider Department 05/15/21 9:30 AM ROSE NEVES During your visit today, we recorded the following information about you: Rose Neves MD 05/15/2021 10:16 AM Signed . Respiratory [place] Note Patient name: Jose Guadalupe Nguyen PCP: SUKHDEV Kramer CC: Follow-up chest CT HPI: Jose Guadalupe [...] OF EXAM: May 08 2021 ?8:48AM ? [facility] ? 0539 ?- ?CT CHEST [...] Take 134 mg by mouth once daily. HYDROcodone-acetamino phen (NORCO) 5-325 mg per tablet Acetaminophen / HYDROcodone Hydrocodone/Acetamino phen Active 1 EA EVERY 6 HOURS NEEDED 14 5 October 13, 2019 7:42am 10-13-2019 [facility] ([id number]) mometasone (ELOCON) 0.1 % cream Mometasone Mometasone Furoate Active 15 GM NEEDED October 05, 2019 8:55am 10-05-2019 [facility] ([id number]) simvastatin (ZOCOR) 40 mg tablet Take 40 [...] vision. CARDIOVASCULAR: No chest pain, dyspnea, palpitations, orthopn (more content not included)... Normal [facility] CNPNon 05-11-2021 CNPN Telephone ([facility]) JOSE GUADALUPE NGUYEN ([id number]) 1960 M Date Time Provider Department 05/11/21 ROSE NEVES [facility] During your visit today, we recorded the following information about you: Emili Dexter 05/11/2021 9:[address] chest results faxed to Dr. Graham at [phone] Emili Dexter Allergies As of Date: 05/11/2021 Noted Allergy Reaction NIACIN 10/13/2019 2 - Rash ROSUVASTATIN 10/13/2019 16 - Unknown SULFAMETHOXAZOLE 10/13/2019 2 - Rash TRIMETHOPRIM 10/13/2019 2 - Rash Date Reviewed: 05/08/2021 Reviewed by: Sidra Guerrero - Fully Assessed Reason for Visit: Results [95] Cmt: CT Chest faxed to dr. graham Prescriptions as of 05/11/2021 - atenolol (TENORMIN) 25 mg tablet Take 25 mg by mouth once daily. - fenofibrate (LOFIBRA) 134 mg capsule Take 134 mg by mouth once daily. - HYDROcodone-acetamino phen (NORCO) 5-325 mg per tablet Acetaminophen / HYDROcodone Hydrocodone/Acetamino phen Active 1 EA EVERY 6 HOURS NEEDED 14 October 13, 2019 7:42am 10-13-2019 [facility] ([id number]) - mometasone (ELOCON) 0.1 % cream Mometasone Mometasone Furoate Active 15 GM NEEDED October 05, 2019 8:55am 10-05-2019 [facility] ([id number]) - simvastatin (ZOCOR) 40 mg tablet Take 40 mg by mouth daily at bedtime. Problem List As Of Date: 05/11/2021 (None) Encounter Status:Closed by EMILI DEXTER on 05/11/21 [facility] CNCOon 05-09-2021 CNCO Letter Text [facility] CNPNon 05-09-2021 CNPN Telephone ([facility]) JOSE GUADALUPE NGUYEN ([id number]) 1960 M Date Time Provider Department 05/09/21 ROSE NEVES [facility] During your visit today, we recorded the following information about you: Rose Neves MD 05/09/2021 4:06 PM Signed I left voicemail message and will send [employer] message. Chest CT with stable nodules and non-enlarged lymph nodes. Incidental finding of right thyroid nodule. Will need ultrasound. I will notify his PCP Allergies As of Date: 05/09/2021 Noted Allergy Reaction NIACIN 10/13/2019 2 - Rash ROSUVASTATIN 10/13/2019 16 - Unknown SULFAMETHOXAZOLE 10/13/2019 2 - Rash TRIMETHOPRIM 10/13/2019 2 - Rash Date Reviewed: 05/08/2021 Reviewed by: Sidra Guerrero - Fully Assessed Reason for Visit: Results [95] Prescriptions as of 05/09/2021 - atenolol (TENORMIN) 25 mg tablet Take 25 mg by mouth once daily. - fenofibrate (LOFIBRA) 134 mg capsule Take 134 mg by mouth once daily. - HYDROcodone-acetamino phen (NORCO) 5-325 mg per tablet Acetaminophen / HYDROcodone Hydrocodone/Acetamino phen Active 1 EA EVERY 6 HOURS NEEDED 14 October 13, 2019 7:42am 10-13-2019 [facility] ([id number]) - mometasone (ELOCON) 0.1 % cream Mometasone Mometasone Furoate Active 15 GM NEEDED October 05, 2019 8:55am 10-05-2019 [facility] ([id number]) - simvastatin (ZOCOR) 40 mg tablet Take 40 mg by mouth daily at bedtime. Problem List As Of Date: 05/09/2021 (None) Encounter Status:Closed by ROSE NEVES on 05/09/21 Normal [facility] CT CHEST W IVCONon 1 CT CHEST W IVCON * * *Final Report* * * DATE OF EXAM: May 08 2021 8:48AM [facility] 0539 - CT CHEST W IVCON / PROCEDURE REASON: multiple diagnoses * * * * Physician Interpretation * * * * EXAMINATION: CHEST CT WITH CONTRAST CLINICAL HISTORY: Lymphadenopathy, Lung nodule(s) . Prostate carcinoma Technique: Spiral CT acquisition of the chest from the thoracic inlet to the upper abdomen following IV contrast. MQ: CTCW_6 Contrast: 50 mL Omnipaque [address] Radiation dose: Integrated Dose-length product (DLP) for this visit = 377 mGy*cm CT Dose Reduction Employed: Automated exposure control(AEC) and iterative recon Comparison: 12/29/2020 RESULT: Limitations: None. Lines, tubes, and devices: None. Lung parenchyma and airways: 4mm nodule within the right lung on image 120 is stable. 5 mm nodule within the right lung on image 141 is stable. 3 mm left apical nodule on image 24 is unchanged. No consolidation. No suspicious pulmonary nodule. The central airways are patent. Pleural space: No pleural effusion. No pleural thickening. Lower neck, lymph nodes, and mediastinum: Right thyroid nodule of 1.7 cm. Stable borderline mediastinal and hilar nodes. No developing lymphadenopathy in the supraclavicular, axillary, mediastinal, or hilar regions. Heart, pericardium, and thoracic vessels: The thoracic aorta and main pulmonary artery are normal in caliber. The cardiac chambers are normal in size. Mild coronary artery atherosclerotic calcifications are noted, although the study is not optimized for coronary assessment. No pericardial effusion or thickening. Bones and soft tissues: No destructive bone lesion. Chest wall is unremarkable. Upper abdomen: Scans through the upper abdomen reveal fatty liver. Alterations Sewer (topogram) images: No additional findings. IMPRESSION: Stable subcentimeter nodules. Stable borderline mediastinal lymph nodes. No developing suspicious mass or adenopathy Fatty liver. Right thyroid nodule. ACTIONABLE RESULT: FOLLOW-UP Acuity: Actionable Findings: Endocrine (thyroid) Routing Code: EMI_1 Recommendation: US THYROID/PARATHYROID Time Frame: At the discretion of the clinical team. COMMUNICATION: Results will be communicated with the ordering provider via [employer] staff message or phone message by [employer] within 2 business days of report finalization. Algorithms for management of incidental imaging findings can be found on the [facility] Intranet Sharepoint site at: [email or web address] [email or web address] [email or web address] [email or web address] Junior Brand Manager: DOMINIQUE Transcribe Date/Time: May 08 2021 9:19A Dictated by : MARIE BOOTH MD This examination was interpreted and the report reviewed and electronically signed by: MARIE BOOTH MD on May 08 2021 9:26AM EST [id number] ACTIONABLE Invalid Interpretation Code [facility] Creatinineon 05-08-2021 Creatinine [Mass/Vol] 1.07 mg/dL Normal 0.73-1.[address] [facility] eGFR- Amer. >60 Normal [facility] eGFR-All Other Races >60 Normal [facility] Comment on above: Result Comment: eGFR (Estimated GFR) Units of measure: [...] eGFR may not accurately reflect actual GFR. CNOVon 01-04-2021 CNOV Office Visit (PULMWS ) JOSE GUADALUPE NGUYEN ([id number]) 1960 M Date Time Provider Department 01/04/21 3:15 PM ROSE NEVES [facility] During your visit today, we recorded the following information about you: Pulse Respiration Blood pressure Weight 71/minute 16/minute 120/70 101.6 kg Rose Neves MD 01/04/2021 6:12 PM Signed . Respiratory [place] Note Patient name: Jose Guadalupe Nguyen PCP: [...] DATE OF EXAM: Dec ?2020 10:29AM ? [facility] ? 0539 ?- ?CT CHEST W IVCON [...] GM NEEDED October 05, 2019 8:55am 10-05-2019 [facility] ([id number]) simvastatin (ZOCOR) 40 mg tablet Take 40 mg by mouth daily at bedtime. iv contrast (will be provided with radiology test) CT Chest W -Inject, intravenously, once for 1 dose.No IV access, insert saline lock prior to the beginning of sedation, infusi (more content not included)... Normal [facility] CNPNon 01-01-2021 CNPN Telephone ([facility]) JOSE GUADALUPE NGUYEN ([id number]) 1960 M Date Time Provider Department 01/01/21 MARCY KIDD During your visit today, we recorded the following information about you: Marcy Kidd 01/01/2021 3:11 PM Signed Called patient to review CT results. Patient's [address] scan for surveillance of incidentally noted lung nodules showed stable nodules in the right lower lobe. Report also mentions several subcentimeter lymph nodes in the mediastinum and hilar regions. Per radiology report these are listed as actionable findings with 3-6 month follow-up imaging recommended. Reviewed findings with Dr. Damon and we are recommending pulmonology referral at this time for further evaluation based on the new finding of lymph nodes. Patient verbalized understanding and agreed with the plan. Will have office staff facilitate appointment. Marcy Kidd 01/01/2021 3:11 PM Signed See below, please make appointment with pulmonology in [place] per Dr. Damon. Referral order placed Barbara Cronin RN 01/02/2021 10:10 AM Signed Patient notified that information has been given to personnel scheduler to set up Pulmonary appointment. They will contact him with a date and time. He verbalized understanding. Barbara Cronin RN Allergies As of Date: 01/01/2021 Noted Allergy Reaction NIACIN 10/13/2019 2 - Rash ROSUVASTATIN 10/13/2019 16 - Unknown SULFAMETHOXAZOLE 10/13/2019 2 - Rash TRIMETHOPRIM 10/13/2019 2 - Rash Date Reviewed: 12/27/2020 Reviewed by: Wendy ([facility]) Sidra Lainez - Fully Assessed Reason for Visit: Results [95] Cmt: lung nodules, new mediastinal and hilar lymph nodes Primary Visit Diagnosis:Lung nodules [R91.8] Other Visit Diagnosis:Abnormal chest CT [R93.89] Order(s):CONSULT TO PULM/CRITICAL CARE [20000103] Order #: [id number]: 1 Prescriptions as of 01/01/2021 Sig: ATENOLOL 25 MG TABLET Take 25 mg by mouth once linda* FENOFIBRATE MICRONIZED 134 MG* Take 134 mg by mouth once victoriano* HYDROCODONE 5 MG-ACETAMINOPHE* Acetaminophen / HYDROcodone H* MOMETASONE 0.1 % TOPICAL CREAM Mometasone Mometasone Furoate* SIMVASTATIN 40 MG TABLET Take 40 mg by mouth daily at * X DOCUSATE SODIUM 100 MG CAPSULE Docusate Docusate Sodium Acti* Problem List As Of Date: 01/01/2021 (None) Encounter Status:Closed by MARCY KIDD on 03/15/21 Normal [facility] CT CHEST W IVCONon CT CHEST W IVCON * * *Final Report* * * DATE OF EXAM: Dec 29 2020 10:29AM [facility] 0539 - CT CHEST W IVCON / PROCEDURE REASON: Lung nodules * * * * Physician Interpretation * * * * EXAMINATION: CHEST CT WITH CONTRAST CLINICAL HISTORY: Lung nodule(s) Technique: Spiral CT acquisition of the chest from the thoracic inlet to the upper abdomen following IV contrast. MQ: CTCW_6 Contrast: 50 mL Omnipaque [address] Radiation dose: Integrated Dose-length product (DLP) for this visit = 372 mGy*cm CT Dose Reduction Employed: Automated exposure control(AEC) and iterative recon Comparison: CT abdomen pelvis 05/11/2020 which showed lung nodules RESULT: Limitations: None. Lines, tubes, and devices: None. Lung parenchyma and airways: * There is a 3-4 mm noncalcified nodule RIGHT lower lobe image 130. This is unchanged * There is also a 5 mm noncalcified nodule noted anteriorly in the RIGHT lower lobe image 148 which is unchanged Pleural space: No pleural effusion. No pleural thickening. Lower neck, lymph nodes, and mediastinum: The imaged thyroid gland is normal. Several subcentimeter lymph nodes in the mediastinum and hilar regions No enlarged nodes in the supraclavicular, axillary, mediastinal, or hilar regions. Heart, pericardium, and thoracic vessels: The thoracic aorta and main pulmonary artery are normal in caliber. The cardiac chambers are normal in size. No coronary artery atherosclerotic calcifications are noted, although the study is not optimized for coronary assessment. No pericardial effusion or thickening. Bones and soft tissues: No destructive bone lesion. Chest wall is unremarkable. Upper abdomen: Fatty liver Alterations Sewer (topogram) images: No additional findings. IMPRESSION: 1. The 2 5 mm noncalcified nodules in the RIGHT lower lobe are unchanged. 2. No new nodules are seen 3. Multiple subcentimeter lymph nodes throughout the mediastinum and hilar regions Recommendation: These are stable after approximately 8 months from last exam. Incidental Finding: Follow-up Acuity: Incidental Findings: Solid: 6-8 mm (multiple nodules) Routing Code: RI_1 Recommendation: CT Chest WO IVCON Time Frame: 3-6 months Comments: If stable on follow-up imaging, a repeat chest CT exam in 12 months (15 - 18 months from the initial exam) is recommended. Junior Brand Manager: DOMINIQUE Transcribe Date/Time: Dec 29 2020 11:06A Dictated by : ESTELA PIPER DO This examination was interpreted and the report reviewed and electronically signed by: ESTELA PIPER DO on Dec 29 2020 11:13AM EST [id number] N ACTIONABLE Invalid Interpretation Code [facility] Creatinineon 12-29-2020 Creatinine [Mass/Vol] 1.15 mg/dL Normal 0.73-1.[address] [facility] eGFR- Amer. >60 Normal [facility] and Counts Include [address] [facility] eGFR-All Other Races >60 Normal [facility] Comment on above: Result Comment: eGFR (Estimated GFR) Units of measure: [...] eGFR may not accurately reflect actual GFR. Tita 12-21-2020 VA[facility] Telephone (GENSWS) JOSE GUADALUPE NGUYEN ([id number]) 1960 M Date Time Provider Department 12/21/20 MARCY KIDD During your visit today, we recorded the following information about you: Marcy Kidd PA-C 12/21/2020 2:59 PM Signed Please check in with patient as he was to have a 6 month follow-up CT scan for surveillance of lung nodules which were found on last CT scan. If he already had this ordered/completed through his PCP, please document. If he has not had this done, I am happy to place order and our office can facilitate scheduling Magaly Vega LPN 12/22/2020 8:58 AM Signed Message to call office. Jeff Sanches LPN 12/22/2020 9:37 AM Signed Pt returned call to office noting that he has not had imaging as noted. He would be agreeable to have this office order CT. His schedule is flexible and we can book CT anytime. Pt notes his insurance has changed since last visit. He will call back later today or first of the week to update that info and to book CT Marcy Kidd PA-C 12/22/2020 9:54 AM Signed Order filed for CT scan as well as creatinine level which will need checked prior to imaging Allergies As of Date: 12/21/2020 Noted Allergy Reaction NIACIN 10/13/2019 2 - Rash ROSUVASTATIN 10/13/2019 16 - Unknown SULFAMETHOXAZOLE 10/13/2019 2 - Rash TRIMETHOPRIM 10/13/2019 2 - Rash Date Reviewed: 05/11/2020 Reviewed by: Wendy ([facility]) Sidra Lainez - Fully Assessed Reason for Visit: Follow Up [171] Cmt: CT scan for surveillance of lung nodules Primary Visit Diagnosis:Lung nodules [R91.8] Other Visit Diagnosis:Screening for nephropathy [Z13.89] Order(s):CT CHEST W IVCON [6560865] Order #: [id number]. #:[id number] [] iv contrast (will be provided with radiology test)CT Chest W -Inject, intravenously, once for 1 dose.No IV access, insert saline lock prior to the beginning of sedation, infusion, injection of imaging exam. Discontinue saline lock post exam. If Pt. has a central line or IVAD, may access for administration according to line specific nursing protocol. Once exam is complete flush line and de-access according to line specific nursing protocol in the CT contrast administration guidelines link.Disp: 1 EachRfl: 0 CREATININE BLD [SQCRET] Order #: [id number] FUTURE Prescriptions as of 12/21/2020 Sig: IV CONTRAST (RADIOLOGY PROCED* CT Chest W -Inject, intraveno* ATENOLOL 25 MG TABLET Take 25 mg by mouth once linda* FENOFIBRATE MICRONIZED 134 MG* Take 134 mg by mouth once victoriano* HYDROCODONE 5 MG-ACETAMINOPHE* Acetaminophen / HYDROcodone H* MOMETASONE 0.1 % TOPICAL CREAM Mometasone Mometasone Furoate* SIMVASTATIN 40 MG TABLET Take 40 mg by mouth daily at * Problem List As Of Date: 12/21/2020 (None) Prescriptions ordered this encounter Disp Refills Start End IV CONTRAST (RADIOLOGY PROCEDURE) 1 Ea* 0 12/22/2020 2020 Class: In Office Sig: CT Chest W -Inject, intravenously, once for 1 dose.No IV access, insert saline lock prior to the beginning of sedation, infusion, injection of imaging exam. Discontinue saline lock post exam. If Pt. has a central line or IVAD, may access for administration according to line specific nursing protocol. Once exam is complete flush line and de-access according to line specific nursing protocol in the CT contrast administration guidelines link. Medications Discontinued During This Encounter Prescriptions - docusate sodium (COLACE) 100 mg capsule (Discontinued) Docusate Docusate Sodium Active 100 MG TWICE A DAY October 13, 2019 7:42am 10-13-2019 [facility] ([id number]) Encounter Status:Closed by MARCY KIDD PA-C on 01/01/21 Normal [facility] EMERGENCY REPORTon 8 EMERGENCY REPORT [facility] EM[facility]Y RO[facility] REPORT NAME ACCOUNT SEX AGE ADMIT DISCHARGE PT MED. RECORD# NUMBER DATE DATE TYPE PATRICK [id number] Star 57 06/02/18 06/02/18 3 JOSE GUADALUPE Daniela [id number] ROOM: ER DATE OF : 1960 DICTATING PHYSICIAN: Gayatri Jorge HISTORY OF PRESENT ILLNESS: This is a 57-year-old male who came to the emergency room with a laceration to the right middle finger. It was on the top of his finger and it occurred about 45 minutes prior to arrival at work. 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 It is a 2 cm laceration. It is just barely into the subcutaneous tissue, but on flexing his fingers the laceration opens up. It is proximal to the metatarsal phalangeal joint area. There is no exposed tendons, nerves, arteries, or veins and light touch sensation is present throughout. He thinks his last tetanus was recent. Onset of his current symptoms was approximately 1730 hours, which was approximately a half hour prior to arrival. After evaluation at 1810 hours when he was examined, local Betasept was applied and then 2% lidocaine without epinephrine was instilled and then 6-0Vicryl 4 stitches simple closure was completed successfully. PHYSICAL EXAMINATION: Head is normocephalic. He is mentating well. Gross neurologic examination was normal. Light touch sensation to his fingers was normal. Distal jarrett was normal. Full function of his hand is noted. His heart rate and rhythm is regular without murmur. PMI is left breast. Vital signs: 97.7 temporal scanning, 81 radial pulse, 16 respirations, 145/74 blood pressure, 95% saturation. EMERGENCY DEPARTMENT COURSE AND TREATMENT: Care for home was given. He was placed on Keflex for prophylaxis. PLAN/DISPOSITION: He was discharged ambulatory from the emergency room in no distress. Dictated By: Gayatri Jorge DO 07/08/18 05:21 JOB #: [id number] Transcribed By: am 07/09/18 11:42 Electronically signed by: E-SIGN GAYATRI JORGE DO 07/13/18 20:54 Page 1 of 2 JOSE GUADALUPE NGUYEN Emergency Room Report Page 2 of 2 JOSE GUADALUPE NGUYEN Emergency Room Report Normal [facility] Vital Signs Date Time Vital Sign Value Performing Clinician Faci jazlyny 03-21-2023 10:50-0400 Diastolic Blood Pressure Non-Invasive [address] [facility] 03-21-2023 10:50-0400 Heart rate 57 /min ZEUS SUPPAN DPM [facility] 03-21-2023 10:50-0400 Systolic Blood Pressure Non-Invasive 120 [address] [facility] 03-21-2023 10:45-0400 Diastolic Blood Pressure Non-Invasive 85 [address] [facility] 03-21-2023 10:45-0400 Heart rate 55 /min ZEUS SUPPAN DPM [facility] 03-21-2023 10:45-0400 Systolic Blood Pressure Non-Invasive 130 [address] [facility] 03-21-2023 10:40-0400 Diastolic Blood Pressure Non-Invasive 90 [address] [facility] 03-21-2023 10:40-0400 Heart rate 60 /min ZEUS SUPPAN DPM [facility] 03-21-2023 10:40-0400 Systolic Blood Pressure Non-Invasive 131 [address] [facility] 03-21-2023 10:30-0400 Body temperature 97.34 [degF] ZEUS SUPPAN DPM [facility] 03-21-2023 10:30-0400 Respiratory rate 14 /min ZEUS SUPPAN DPM [facility] 03-21-2023 10:25-0400 Respiratory Rate - Anes 16 br/min ZEUS SUPPAN DPM [facility] 03-21-2023 10:20-0400 Respiratory Rate - Anes 0 br/min ZEUS SUPPAN DPM [facility] 03-21-2023 10:20-0400 temperature 97.7 [degF] ZEUS SUPPAN DPM [facility] 03-21-2023 10:15-0400 Respiratory Rate - Anes 0 br/min ZEUS SUPPAN DPM [facility] 03-21-2023 10:15-0400 temperature 97.7 [degF] ZEUS SUPPAN DPM [facility] 03-21-2023 10:09-0400 temperature 97.7 [degF] ZEUS SUPPAN DPM [facility] 03-21-2023 08:37-0400 Body height 182.9 cm ZEUS SUPPAN DPM [facility] 03-21-2023 08:37-0400 Body temperature 98.42 [degF] ZEUS SUPPAN DPM [facility] 03-21-2023 08:37-0400 Body weight 106.8 kg ZEUS SUPPAN DPM [facility] 03-21-2023 08:37-0400 Heart rate 56 /min ZEUS WHITEAN DPM [facility] 03-21-2023 08:37-0400 Respiratory rate 13 /min ZEUS LONG DPM [facility] Encounters Encounter Date Encounter Type Care Provider Facility Start: 01-20-2025 End: 01-20-2025 ambulatory MOSHE GRAHAM AIRSET MOLDER - JOINT SUPERVISOR Facility:[facility] Start: 09-07-2024 End: 09-07-2024 ambulatory Raysa Turner Facility:[facility] Start: 07-20-2024 End: 07-20-2024 ambulatory MOSHE GRAHAM AIRSET MOLDER - JOINT SUPERVISOR Facility:[facility] Start: 07-20-2024 End: 07-20-2024 Patient encounter procedure MOSHE GRAHAM AIRSET MOLDER - JOINT SUPERVISOR [facility] Start: 01-21-2024 End: 01-22-2024 ambulatory MOSHE GRAHAM AIRSET MOLDER - JOINT SUPERVISOR Facility: Start: 01-21-2024 End: 01-21-2024 Patient encounter procedure MOSHE GRAHAM AIRSET MOLDER - JOINT SUPERVISOR [facility] Start: 12-10-2023 End: 12-10-2023 ambulatory [facility] Work Phone: Start: 12-10-2023 End: 12-10-2023 Patient encounter procedure [facility] Work Phone: Start: 12-10-2023 End: 12-10-2023 ambulatory Moshe Graham CONCIERGE MANAGER Facility:[facility] Start: 06-05-2023 End: 06-05-2023 ambulatory [facility] Work Phone: Start: 06-05-2023 End: 06-05-2023 Patient encounter procedure [facility] Work Phone: Start: 05-30-2023 End: 05-30-2023 ambulatory [facility] Work Phone: Start: 05-30-2023 End: 05-30-2023 Discharged Recurring [facility]Physical Therapy Work Phone: Start: 05-13-2023 End: 05-14-2023 ambulatory MOSHE GRAHAM AIRSET MOLDER - JOINT SUPERVISOR Facility:[facility] Start: 03-21-2023 End: 03-21-2023 ambulatory MOSHE GRAHAM AIRSET MOLDER - JOINT SUPERVISOR Facility:[facility] Start: 03-21-2023 End: 03-21-2023 SAME DAY STAY ZEUS LONG DPM [facility] Start: 03-12-2023 End: 03-13-2023 ambulatory ZEUS LONG DPM Facility:[facility] Start: 01-24-2023 End: 01-25-2023 ambulatory MOSHE GRAHAM AIRSET MOLDER - JOINT SUPERVISOR Facility:[facility] Start: 01-14-2023 End: 01-14-2023 Patient encounter procedure MOSHE GRAHAM AIRSET MOLDER - JOINT SUPERVISOR [facility] Start: 07-16-2022 End: 07-16-2022 Patient encounter procedure MOSHE GRAHAM AIRSET MOLDER - JOINT SUPERVISOR [facility] Start: 05-20-2022 End: 05-20-2022 Patient encounter procedure [facility] Start: 02-08-2022 End: 02-08-2022 Patient encounter procedure [facility] Start: 01-21-2022 End: 01-21-2022 Patient encounter procedure MOSHE GRAHAM AIRSET MOLDER - JOINT SUPERVISOR [facility] Start: 01-16-2022 End: 01-16-2022 Patient encounter procedure MOSHE GRAHAM AIRSET MOLDER - JOINT SUPERVISOR [facility] Start: 11-21-2021 End: 11-21-2021 Patient encounter procedure [facility] Start: 06-02-2018 End: 06-02-2018 Emergency department patient visit GAYATRI WILHELM [facility] Procedures Date Procedure Procedure Detail Performing Clinician Start: 02-08-2022 CT of chest without contrast Start: 10-27-2007 Prostate biopsy reva hancock (specimen) MOSHE SANTOS AIRSET MOLDER - JOINT SUPERVISOR Start: 10-27-1962 Tonsillectomy MOSHE DAVIS AIRSET MOLDER - JOINT SUPERVISOR Colonoscopy ZEUS LONG DP M Osteophyte of bone (disorder) ZEUS LONG DPM Comment on above: collar bone Prostatectomy ZEUS Peres PM Immunizations Immunization Date Immunization Notes Care Provider Deven gonzales 08-31-2015 tetanus toxoid, redu kathleen diphtheria toxoid, and acellular pertussis vaccine, adsorbed MOSHE GRAHAM AIRSET MOLDER - JOINT SUPERVISOR [facility] Payers Date Payer Category Payer Private Health Insurance [id number] 2023 Private Health Insurance [id number] 2023 Self-pay [id number] 2023 Private Health Insurance [id number] 2015 Unknown [id number] 1960 Unknown [id number] 2.16.8 [id number] 1960 Unknown [id number] 2.16.8 [id number] 1960 Unknown [id number] 2.16.8 [id number] 1960 Unknown [id number] 2.16.8 [id number] 1960 Unknown [id number] 2.16.8 [id number] 1960 Unknown [id number] 2.16.8 [id number] 1960 Unknown [id number] 2.16.8 [id number] Unknown [id number] 2.16.8 [id number] Unknown [id number] 2.16.8 [id number] Social History Date Type Detail Facility Start: 07-30-2019 Never smoked t obacco (finding) [facility] Start: 1960 Sex Assigned At Male A [facility] Start: 10-05-2019 End: 10-05-2019 Tobacco smoking status KYIS Unknown if ever smoked [facility] Start: 01-14-2019 None [facility] Start: 01-14-2019 Spouse/ Signif icant Other [facility] Start: 10-05-2019 Non-smoker [facility] Medical Equipment Procedure Code Equipment Code Equipment Origin al Text Equipment Identifier Dates SANDRA FELIX LG FDA Start: 10-13-2019 SANDRA FELIX FDA Start: 10-13-2019 SANDRA FELIX FDA Start: 10-13-2019 SANDRA FELIX FDA Start: 10-13-2019 SEALANT,FLOSEAL HEMOSTATIC 5ML FDA Start: 10-13-2019 SANDRA FELIX LG FDA Start: 10-13-2019 SANDRA FELIX FDA Start: 10-13-2019 SANDRA FELIXCK FDA Start: 10-13-2019 CLIP,SANDRA MANCINI FDA Start: 10-13-2019 SEALANT,FLOSEAL HEMOSTATIC 5ML FDA Start: 10-13-2019 CLIPSANDRA LG FDA Start: 10-13-2019 CLIPSANDRA FDA Start: 10-13-2019 CLIPSANDRA FDA Start: 10-13-2019 CLIPSANDRA FDA Start: 10-13-2019 SEALANT,FLOSEAL HEMOSTATIC 5ML FDA Start: 10-13-2019 CLIPSANDRA LG FDA Start: 10-13-2019 CLIP,SANDRA MANCINI FDA Start: 10-13-2019 CLIPSANDRA FDA Start: 10-13-2019 CLIPSANDRA FDA Start: 10-13-2019 SEALANT,FLOSEAL HEMOSTATIC 5ML FDA Start: 10-13-2019 SANDRA FELIX LG FDA Start: 10-13-2019 CLIP,SANDRA MANCINI FDA Start: 10-13-2019 CLIPSANDRA FDA Start: 10-13-2019 CLIPSANDRA FDA Start: 10-13-2019 SEALANT,FLOSEAL HEMOSTATIC 5ML FDA Start: 10-13-2019 Functional Status Date Assessment Result Facility 03-21-2023 Functional Status ice on [facility] 03-21-2023 Functional Status Maintained [facility] Mental Status Date Assessment Result Facility 03-21-2023 Mental Status Oriented x 4 [facility] 03-21-2023 Mental Status [facility] Clinical Notes 12-29-2020 to 05-30-2023 Note Date & Type Note Facility 05-30-2023 Discharge summary Note Date/Time May 30, 2023 8:5 3am [facility] Physical Therapy [facility] [address] [place] [address]. [address] [place] [address] / REHABILITATION SERVICES DISCHARGE SUMMARY MR#: [id number] Acct: [id number] Name: JOSE GUADALUPE NGUYEN Rep #: [id number] : 1960 62 From: Bon Rojas DPT, OCS, CSCS Referring DrFlorinda: LEEANN Long Status: REG [facility] Insurance: [employer] [address] SELF PAY INSURANCE Discharge Summary D/C summary: It has been my pleasure to treat JOSE GUADALUPE NGUYEN referred by Dr. Zeus Long, LEEANN, with the diagnosis of R peroneal tendon repair 03/21/23 for a total of 4 visit(s). Discharge Date: 05/30/23 Please see the following information for a summary of their discharge status. Subjective Subjective: Doing well. Pain is not an issue. Has been up and down step a million times with firewood. Arch can bother if overdoes it. Sleeping well. No limping. Ready and wants to go back to work. No f/u with doctor until 06/11/23. Will call doctor to seek release. activity is normal at home. On feet 75% of day. Has been on feet alot at home. Tolerating wearing shoe well. Been exercising at home, been on feet all day, pured concrete one day without a problem. Needs to go back to work financially also. Pain R lat ankle: Pain Intensity (Out of 10): 4 Overall Improvement % Improvement: 100 Objective Objective/Function: 5 DF, 60 PF, 14 eversion, and 24 inversion 4/5 eversion, 5/5 PF, DF and inversion strength, no pain. walking without antalgia and normal steps today. Heel raise unilaterally without pain or problems. Goals Goal 1:: Full symmetrical aROM R ankle with L and no pain Goal Progress: Goal Met Goal 2:: Pt feel 100% back to normal activity without soreness Goal Progress: Goal Met Goal 3:: I appropriate management of condition Goal Progress: Goal Met Goal 4:: Walk steps and community wihtout gait deviations without brace or crutch as allowed Goal Progress: Goal Met Goal 5:: Return to work ready Goal Progress: feels ready Goal 6:: 51 LEFS score Goal Progress: Goal Met Plan Plan: d/c D/C Information Discharge Comments: Pt to contact doctor to get released to work which appears appropriate from therapist point of view. He needs financially to get back to work if possible. d/c sentence: If there are questions or concerns regarding this patient's physical therapy, please feel free to call me at [phone]. Thank you for the referral of thispatient. Sincerely, Bon Rojas, DPT, OCS, CSCS Balance/Gait/Functional tests Balance/Special Test Scores Lower Extremity Functional Score: 80 <Electronically signed by Bon Rojas DPT, OCS, CSCS> 05/30/23 0852 CC: LEEANN Long; CONCIERGE MANAGER-C Moshe Graham ~ EBG Signed [facility] Work Phone: 1(147) 704-424405-26-2023 Evaluation + Plan noteExtracted from: Title:Clinical Document Author:ZEUS LONG PM Date:03/21/23 [place] ADMISSION HISTORY AN D PHYSICIAL CHIEF COMPLAINT: HISTORY OF PRESENT ILLNESS: REVIEW OF SYSTEMS: ACTIVE PROBLEMS: (16) Abnormal bone xray (346504621) BPH with elevated PSA (826098709) CKD (chronic kidney disease), stage III (3945089762) DJD (degenerative joint disease) (3622218350) Elevated PSA (5780647859) HTN, goal below 140/90 (6478543131) Hyperlipidemia (35022652) Impaired fasting glucose (7535707351) Increased BMI (body mass index) (22673184) Non-smoker (40006112) Pain in right foot (669839591) Prostate cancer (5414330492) RA (rheumatoid arthritis) (066102912) Renal insufficiency (734826630) Seasonal allergies (1494691667) Vitamin D deficiency (45871682) MEDICATIONS: Active Inpt Meds: None Active PRN [...] FAMILY HISTORY: SOCIAL HISTORY: PHYSICAL EXAM: VITALS: VnlwfyPxxpEWVapagXJHcZ1HCN4JqzqVs(kg) 03/21 08:3736.9--173646ND49/30468.8 24 Hr Tmax: 36.9 at 03/21 08:37 [...] Appointments Appointment Date:07/22/2023 08:00:00 AM Scheduled Provider:MOSHE GRAHAM APRN, CNP Location:[facility] Appointment Type:PC OV Follow Up Future Scheduled Tests Laboratory* Complete Blood Count 07/26/23 * Lipid Profile 07/26/23 * Albumin/Creatinine Ratio, Random Urine 07/26/23 * Vitamin D Level 07/26/23 * Complete Metabolic Panel 07/26/23 [facility] 05-26-2023 Hospital Discharge instructions Patient Education [...] ?Pus or a bad smell. Medicines Take nbsh-cqq-drgxopm and prescription medicines only as told by [...] 02/02/2017 Document Revised: 01/11/2019 Document Reviewed: 02/02/2017 smartclip Patient Education 2020 Crack. 03/21/2023 10:42:27 Monitored Anesthesia Care, Care After [...] before eating solid foods. General instructions Take spnq-awv-mzkvwru and prescription medicines only as told by [...] 02/02/2017 Document Revised: 01/11/2019 Document Reviewed: 02/02/2017 smartclip Patient Education 2020 Crack. Follow Up Care 02/26/2023 09:12:53 With:ZEUS LONG Address: [address], [address] [facility] [place], [place] [id number]- Business (1) When:03/27/2023 13:40:00 [facility] 05-26-2023 Summary of episode note Discharge Instructions Thank you for allowing [facility] to assist you with your healthcare needs. The following is importantdischarge information regarding your hospital visit. Your Care Team MOSHE GRAHAM APRN, CNP What to do next Scheduled Follow-Up Appointments Appointment Type When With Where Contact InformationPC OV Follow Up 07/22/2023 08:00 AM EDT MOSHE GRAHAM APRN, CNP [facility] Follow Up Appointments Follow Up with ZEUS LONG When 03/27/2023 01:40 PM EDT Where: [address], [address] [facility] [place] [address]- Business (1) The Following Activity and Diet [...] Pus or a bad smell. Medicines Take nlgu-dnp-fzkxwss and prescription medicines only as told by [...] 02/02/2017 Document Revised: 01/11/2019 Document Reviewed: 02/02/2017 smartclip Patient Education 2020 Crack. Monitored Anesthesia Care, Care After These instructions [...] before eating solid foods. General instructions Take lnql-qjf-taqnlek and prescription medicines only as told by [...] 02/02/2017 Document Revised: 01/11/2019 Document Reviewed: 02/02/2017 smartclip Patient Education 2020 Crack. Additional Information VACCINATE! IT SAVES LIVES! Members of the community who have not yet received the COVID-19 vaccine and would like to receive it can visit one of [facility] vaccine clinics. There are many vaccine clinic locations within the [facility]. For locations and available times, please visit https://[email or web address].[place].gov/. It is important to note that some COVID mobile vaccine clinics are held outdoors and may be canceled in rainy or stormy conditions. To learn more about pediatric vaccinations (ages 5-11), we invite you to visit the [employer] [facility] webpage. https://www.[employer].org/pages/1918-Luswd-Zgislbvhrfq-Nntxtrvcgs-Jliol-Ejr stions.htmlTo learn more about the COVID-19 vaccine, we invite you to visit the CDC website for a list of frequently asked questions.https://www.cdc.gov/coronavirus/2019-ncov/vaccines/faq.html [employer] Patient Portal Access Instructions: Stay connected with your healthcare team and access your personal medical information anytime with the [employer] Patient Portal. Please follow the directions below to create your [employer] account: 1.Access the email account you provided upon registration to the hospital/physician office.2.Look for an invitation email from [facility].3.Open the email and access the invitation link: AcceptInvitation to [employer].4.Fill in the required hooks to create your account. To access your account, visit [employer]. Click the blue button labeled Access Patient [...] who you will allowto register on the [facility] Patient Portal for access to your information. You can also access the [facility] Patient Portal on the [place] [facility] j[facility]. Simply click on Patient Portal and then log into your account. If you would like to receive a full copy of your medical records, please contact the [facility] Medical Records Department by calling [phone], Friday through Friday between 8 a.m. and [...] Call your local pharmacy or go to [email or web address] to find one close to you.3.Make use of household items: Use cat litter or old coffee grounds to dispose medications if other options arenot available. Mix your drugs with these household products, seal them in an airtight container andthrow it into the garbage. Call [facility]: [phone] to be sure your drugs can be [...] explained to me and I,JOSE GUADALUPE NGUYEN SRd my current condition and have read and understand these discharge instructions. I have received a written copy of the plan/instructions. If I have questions, I am aware that I should contact my doctor. Patient/Solvent Mixer Signature: Date/Time: Relationship to Patient: Witness Name/Signature: Date/Time: [facility]05-26-2023 Anesthesiology Consult note Patient: PATRICK ANDINOJOSE GUADALUPE Age: 62 years Sex: Male : 1960 Associated Diagnoses: None Author: JOSE SHAHID APRN-FEATHER SAWYER Preoperative Information Time of last food or [...] BPH with elevated PSA / SNOMED CT 322893722 / Confirmed Abnormal bone xray / SNOMED CT 350479985 / Confirmed CKD (chronic kidney disease), stage III / SNOMED CT 3515552915 / Confirmed Pain in right foot / SNOMED CT 808794391 / Confirmed Hyperlipidemia / SNOMED CT 27014743 / Confirmed HTN, goal below 140/90 / SNOMED CT 2867019409 / Confirmed Impaired fasting glucose / SNOMED CT 8222536583 / Confirmed Increased BMI (body mass index) / SNOMED CT 24437959 / Confirmed Prostate cancer / SNOMED CT 0567705227 / Confirmed Non-smoker / SNOMED CT 60847625 / Confirmed DJD (degenerative joint disease) / SNOMED CT 9998915066 / Confirmed Elevated PSA / SNOMED CT 4931689255 / Confirmed Renal insufficiency / SNOMED CT 487629639 / Confirmed RA (rheumatoid arthritis) / SNOMED CT 069839053 / Confirmed Seasonal allergies / SNOMED CT 6857161973 / Confirmed Vitamin D deficiency / SNOMED CT 85020767 / Confirmed Resolved: High triglycerides / SNOMED CT 111387915 Resolved: Joint pain / SNOMED CT 05126425 Resolved: Overweight / SNOMED CT 289126540 Canceled: Acute viral pharyngitis / SNOMED CT 326531366, Active Problems (16) Abnormal bone xray BPH with elevated PSA CKD (chronic kidney disease), stage III DJD (degenerative joint disease) Elevated PSA HTN, goal below 140/90 Hyperlipidemia Impaired fasting glucose Increased BMI (body mass index) Non-smoker Pain in right foot Prostate cancer RA (rheumatoid arthritis) Renal insufficiency Seasonal allergies Vitamin D deficiency Histories Past Medical History: Resolved Overweight (919595512): Resolved. High triglycerides (276580804): Resolved. Joint pain (11776196): Resolved. Family History: Cancer Grandparent Breast cancer Mother Rheumatoid arthritis Brother Hypertension Mother Father Heart disease Mother Congestive heart failure Mother Diabetes Father Brother Bipolar 1 disorder Daughter Prostate cancer Brother Procedure history: Prostate biopsy sample (561806791) in 2007 at 47 Years. Tonsillectomy (030747000) in 1962 at 2 Years. Prostatectomy (432366025). Colonoscopy (723156210). Bone spur (6081319520). Comments: 03/12/2023 8:02 Liss Watts RN collar bone Social History Social & Psychosocial Habits Alcohol 07/30/2019 Use: Past Substance Abuse 07/30/2019 Use: Never Tobacco 07/30/2019 Tobacco Use: Never (less than 100 in l Home/Environment 07/30/2019 Primary Special Effects Makeup Artist: Self Nutrition/Health 10/22/2022 Caffeine intake amount: One [...] Signs(last 24 hrs) Last Charted Heart Rate Ojosiprgk11 bpm (MARCH 21 09:40) Resp Rate L 13br/min (MARCH 21 08:37) ASG907 mmHg (MARCH 21 09:35) DBP87 mmHg (MARCH 21 09:35) Measurements from flowsheet : Measurements 03/21/2023 8:37 EDT Height 182.9 cm Height in inches 72 inch(es) Admission Weight 106.8 kg Weight Lbs 235 lb Weight Method Stated [place] Body Weight 77.62 kg Admission Body Mass [...] ANTERIOR SHINS 03/21/2023 9:30 EDT SN - [place] - Medication LIDOCAINE 1%/EPI 30ML VIAL XYLOC SN - [place] - Route of Administration Local SN - [place] - By (Single) SN - [place] - By (Single) 03/21/2023 9:30 EDT SN [...] Surgeon SN - CAt - Role Performed Construction Sales Representative 1 SN - CAt - Role Performed FEATHER SAWYER SN - CAt - Role Performed Scrub 1 SN - CAt - Role Performed University Registrar 1 03/21/2023 9:25 EDT Heart Rate Monitored 54 bpm bpm Respiratory Rate - Anes 11 br/min br/min Systolic Blood Pressure Non-Invasive 150 mmHg mmHg Diastolic Blood Pressure Non-Invasive 87 mmHg mmHg Oxygen Saturation 99 % % fentaNYL 50 mcg mcg lidocaine 80 mg mg propofol 50 mg mg (In Error) propofol 30 mg mg 03/21/2023 9:24 EDT [place] History and Physical 03/21/2023 9:22 EDT Systolic [...] Weight Lbs 235 lb Weight Method Stated [place] Body Weight 77.62 kg Admission Body Mass [...] no symptoms Safety Brochure Information Reviewed Yes Heather Nash Video Viewed No Teaching Evaluation Verbalizes/Nonverbally indicates understanding Admission Note-Nursing Same Day Patient History (Modified) . Assessment and Plan [place] [employer] Anesthesiologists (ASA) physical status classification: Class III. Anesthetic Preoperative Plan Premedication: intravenous. Anesthetic technique: MAC. Induction: intravenously. Maintenance airway: Mask. Risks discussed: nausea, vomiting, headache, sore throat, dental injury, hypotension, allergic reaction, serious complications. Informed consent: signed by patient. Notes: CKD III; HTN. Digitally Signed by JOSE SHAHID on 03/21/2023 09:[address] [facility]05-26-2023 Note [place] ADMISSION HISTORY AND PHYSICIAL CHIEF COMPLAINT: HISTORY OF PRESENT ILLNESS: REVIEW OF SYSTEMS: ACTIVE PROBLEMS: (16) Abnormal bone xray (438095305) BPH with elevated PSA (338925041) CKD (chronic kidney disease), stage III (7698301708) DJD (degenerative joint disease) (2024598621) Elevated PSA (6612178412) HTN, goal below 140/90 (0253588096) Hyperlipidemia (41266118) Impaired fasting glucose (0528966031) Increased BMI (body mass index) (70168091) Non-smoker (77723402) Pain in right foot (758660689) Prostate cancer (6010704535) RA (rheumatoid arthritis) (272436740) Renal insufficiency (557963578) Seasonal allergies (6017473311) Vitamin D deficiency (04636574) MEDICATIONS: Active Inpt Meds: None Active PRN [...] FAMILY HISTORY: SOCIAL HISTORY: PHYSICAL EXAM: VITALS: HjnpkfPxowGEQhfemGBOzJ4RMG1LdxpHk(kg) 03/21 08:3736.9--283322QI33/65510.8 24 Hr Tmax: 36.9 at 03/21 08:37 36 Hr Tmax: 36.9 at 03/21 08:37 Vital Signs are the last 5 in the past 48 hours. Weights display the last 5 within 7 days. Initial Wt: 03/21 106.8 kg 235 lb Current Wt: 05/26 106.8 kg 235 lb GENERAL: HEENT: CARDIOVASCULAR: RESPIRATORY: ABDOMEN: EXREMETIES: NEUROLOGICAL: PSYCHIATRIC: LABS: No 36hr Lab Data DIAGNOSTICS: IMPRESSION: PLAN: History and Physical Update I have examined the patient; reviewed the H&P and there are no changes to the H&P unless noted below. Digitally Signed by ZEUS LONG DPM on 03/21/2023 09:[address] [facility]07-20-2021 NoteHNO ID: [id number] Author: Rose Neves MD Service: ? Author Type: Physician Type: Progress Notes Filed: 05/15/2021 10:16 AM Note Text: . Respiratory [place] Note Patient name: Jose Guadalupe Nguyen PCP: SUKHDEV Kramer CC: Follow-up chest CT HPI: Jose Guadalupe [...] OF EXAM: May 08 2021 ?8:48AM ? [facility] ? 0539 ?- ?CT CHEST W IVCON [...] 1 EA EVERY 6 HOURS NEEDED 14 5 October 13, 2019 7:42am 10-13-2019 [facility] ([id number]) mometasone (ELOCON) 0.1 % cream Mometasone Mometasone Furoate Active 15 GM NEEDED October 05, 2019 8:55am 10-05-2019 [facility] ([id number]) simvastatin (ZOCOR) 40 mg tablet Take 40 [...] NEURO: No new rich (more content not included)...[facility] 05-08-2021 NoteHNO ID: [id number] Author: Sidra Guerrero Service: ? Author Type: [place] House Supervisor Type: Progress Notes Filed: 05/08/2021 10:04 AM [...] Nguyen DATE: May 08, 2021 TIME: 10:03 [facility]03-11-2021 NoteHNO ID: [id number] Author: Rose Neves Service: ? Author Type: Physician Type: Progress Notes Filed: 01/04/2021 6:12 PM Note Text: . Respiratory [place] Note Patient name: Jose Guadalupe Nguyen PCP: [...] DATE OF EXAM: Dec ?2020 10:29AM ? [facility] ? 0539 ?- ?CT CHEST W IVCON [...] GM NEEDED October 05, 2019 8:55am 10-05-2019 [facility] ([id number]) simvastatin (ZOCOR) 40 mg tablet Take 40 [...] specific nursing protocol i (more content not included)...[facility] 12-29-2020 NoteHNO ID: [id number] Author: Wendy Ling) Sidra Lainez Service: ? Author Type: [place] Supervisor Type: Progress Notes Filed: 12/29/2020 11:29 AM [...] Nguyen DATE: December 29, 2020 TIME: 11:28 [facility] Appointment Date:01/21/2022 08:20:00 AM Scheduled Provider:MOSHE GRAHAM APRN, CNP Location:[facility] Appointment Type:PC OV Follow Up Future Scheduled Tests Laboratory* Complete Blood Count 02/01/21 * Lipid Profile 02/01/21 * Complete Metabolic Panel 02/01/21 [facility] Evaluation + Plan note Future Appointments Appointment Date:07/25/2022 08:20:00 AM Scheduled Provider:MSOHE GRAHAM APRN, CNP Location:[facility] Appointment Type:PC OV Follow Up Future Scheduled Tests Laboratory* A1C Hemoglobin 07/24/22 * Complete Blood Count 02/01/21 * Complete Blood Count 07/24/22 * Lipid Profile 02/01/21 * Lipid Profile 07/24/22 * Microalbumin Level Urine 07/24/22 * Vitamin D Level 07/24/22 * Complete Metabolic Panel 02/01/21 * Complete Metabolic Panel 07/24/22 Radiology* XR Clavicle Left 01/21/22 * XR Clavicle Right 01/21/22 [facility] Evaluation + Plan note Future Appointments Appointment Date:07/25/2022 08:20:00 AM Scheduled Provider:MOSHE GRAHAM AIRSET MOLDER - JOINT SUPERVISOR Location:[facility] Appointment Type:PC OV Follow Up Future Scheduled Tests Radiology* XR Clavicle Left 01/21/22 * XR Clavicle Right 01/21/22 [facility] Evaluation + Plan note Future Appointments Appointment Date:01/23/2023 08:00:00 AM Scheduled Provider:MOSHE GRAHAM AIRSET MOLDER - JOINT SUPERVISOR Location:[facility] Appointment Type:PC OV Diagnostic Tests Pending * Renin, Plasma 01/14/23 Future Scheduled Tests Radiology* XR Clavicle Left 01/21/22 * XR Clavicle Right 01/21/22 [facility] Evaluation + Plan note Future Appointments Appointment Date:01/27/2024 07:00:00 AM Scheduled Provider:MOSHE GRAHAM AIRSET MOLDER - JOINT SUPERVISOR Location:[facility] Appointment Type:PC OV Follow Up Future Scheduled Tests Laboratory* Albumin/Creatinine Ratio, Random Urine 07/26/23 [facility] Evaluation + Plan note Future Appointments Appointment Date:07/29/2024 07:00:00 AM Scheduled Provider:MOSHE GRAHAM AIRSET MOLDER - JOINT SUPERVISOR Location:[facility] Appointment Type:PC OV Follow Up Diagnostic Tests Pending * Renin Activity, Plasma 07/20/24 * Rheumatoid Factor 07/20/24 Future Scheduled Tests Laboratory* Albumin/Creatinine Ratio, Random Urine 07/28/24 [facility] Evaluation noteNo assessment information available [facility] Work Phone: Hospital course Narrative No data available for this section [facility] Hospital Discharge instructions No data available for this section [facility] Progress note No data available for this section [facility] Summary Purpose Family History No Family History Records FoundNo Family History Records Found No data available for this section No Family History Records Found No data available for this section No Family History Records FoundNo Family History Records Found Advance Directives No Advanced Directives Records Found Advance Directive Response Recorded Date/ Time Living Will No October 13, 019 2:37pm Power of Entry Tech No October 13, 2019 2:37pm Advance Directive Response Recorded Date/ Time Living Will No October 13 019 1:37pm Power of Entry Tech No October 13, 2019 1:37pm Chief Complaint and Reason for Visit Chief Complaint Sprain of right ster noclavicular joint, initial en Chief Complaint SP TENDON REPAIR / R X HERE Additional Source Comments (unrecognized sect ion and content) No Status Records FoundNo Status Records FoundNo Status Records FoundNo Status Records FoundNo Status Records Found INFORMATION SOURCE (unrecogn ized section and content) DATE CREATED AUTHOR [facility]/2018 [facility] DATE CREATED AUTHOR AUTHOR'S ORGANIZ ATION 12/16/2021 [facility] DATE CREATED AUTHOR AUTHOR'S ORGANIZ ATION 01/22/2024 [facility] ([place] DATE CREATED AUTHOR AUTHOR'S ORGANIZ ATION 10/09/2024 [facility] DATE CREATED AUTHOR AUTHOR'S ORGANIZ ATION 01/21/2025 [facility] Goals (unrecognized section and content) Goals may be documented in a n alternate section Care Team (unrecognized sect ion and content) Care Team Personnel Name: MOSHE GRAHAM AIRSET MOLDER - JOINT SUPERVISOR Position: P4 Advanced Practice Nurse Med Service: Employed Provider Member Role: Primary Care Physician Address: Address: [address] [facility] [place] [address]- Care Team Related Persons Name: JAVON NGUYEN Address: Home [address] [place], [place] [id number] Patient Care team informatio n (unrecognized section and content) Team Status: Active Member Role Status Dates Moshe Graham CONCIERGE MANAGER, CONCIERGE MANAGER-C Family Provider Activ e Moshe Graham CONCIERGE MANAGER, CONCIERGE MANAGER-C Primary Care Provider Active Team Status: Inactive Member Role Status Dates Moshe Graham CONCIERGE MANAGER, CONCIERGE MANAGER-C Primary Care Provider Active Dr. Zeus Long DPM Attending Provider, Referring P magdi Active Team Status: Inactive Member Role Status Dates Moshe Graham CONCIERGE MANAGER, CONCIERGE MANAGER-C Primary Care Provider Active Dr. Ankur Florence MD Attending Provider, Referr ing Provider Active Team Status: Inactive Member Role Status Dates Moshe Graham CONCIERGE MANAGER, CONCIERGE MANAGER-C Primary Care Provider Active Raysa Lloyd Attending Provider, Referring Provide r Active FOR RECORDS PERTAINING TO PATIENTS WHO ARE [...] BE BASED ON THE PRIMARY CLINICAL RECORDS. [facility] [employer] provides no warranty or guarantee of the accuracy or completeness of information in this document.
[2025-06-08 07:11] LABS: PSA,Total- Diagnostic 0.11 ng/mL (0.00-4.00)
== END | disposition home or self-care (01) ==
LOC: LAB 06:01
PROVIDERS: PCP Nurse Practitioner Family; Referring Provider Urology; Visit Provider Urology
DX: C61 Malignant neoplasm of prostate (principal)
CPT/HCPCS: 36415; 84153